=== PATIENT | male | born 1990 | race Caucasian/White ===

== ENCOUNTER 2017-12-14 15:55 | Outpatient (RCR) | payer OTHER, SELFPAY | END 2017-12-29 23:59 | LOC: NS 15:55 | PROVIDERS: Family Provider Nurse Practitioner Adult Health; PCP Nurse Practitioner Adult Health; Visit Provider Physician Assistant Medical | DX: E66.9 Obesity, unspecified (principal); Z68.41 Body mass index [BMI] 40.0-44.9, adult; E78.5 Hyperlipidemia, unspecified; Z71.3 Dietary counseling and surveillance | CPT/HCPCS: 97803 ==

== ENCOUNTER 2018-01-25 08:30 | Outpatient (RCR) | payer OTHER, SELFPAY | END 2018-01-26 23:59 | LOC: NS 08:30 | PROVIDERS: Family Provider Nurse Practitioner Adult Health; PCP Nurse Practitioner Adult Health; Visit Provider Physician Assistant Medical | DX: E78.5 Hyperlipidemia, unspecified (principal); E66.9 Obesity, unspecified; Z68.41 Body mass index [BMI] 40.0-44.9, adult; Z71.3 Dietary counseling and surveillance | CPT/HCPCS: 97803 ==

== ENCOUNTER 2018-03-08 12:42 | Outpatient (RCR) | payer OTHER, SELFPAY | END 2018-03-08 12:43 | disposition home or self-care (01) | LOC: NS 12:42 | PROVIDERS: Family Provider Nurse Practitioner Adult Health; PCP Nurse Practitioner Adult Health; Visit Provider Physician Assistant Medical | DX: E66.9 Obesity, unspecified (principal); Z68.41 Body mass index [BMI] 40.0-44.9, adult; E78.5 Hyperlipidemia, unspecified; Z71.3 Dietary counseling and surveillance | CPT/HCPCS: 97803 ==

== ENCOUNTER 2019-02-24 07:40 | Emergency (ER) | payer OTHER, SELFPAY ==
[2019-02-24 07:44] VITALS: BP 158/90; PULSE 127; RESP 30; TEMP 37.6; O2SAT 96; BMI 41.3
--- NOTE | 2019-02-24 08:02 | EKG12_ITS ---
Test Reason : SOB Blood Pressure : / mmHG Vent. Rate : 109 BPM Atrial Rate : 109 BPM P-R Int : 176 ms QRS Dur : 104 ms QT Int : 312 ms P-R-T Axes : 044 034 028 degrees QTc Int : 420 ms Sinus tachycardia /Sinus Arrhythmia Confirmed by CASIE BANUELOS, PIPER ([id number]), film editor MOISÉS GARCÍA ([id number]) on 02/27/2019 1:41:54 PM Referred By: REG Confirmed By:PIPER JASON MD
--- NOTE | 2019-02-24 08:03 | RAD_ITS ---
STUDY: X-RAY CHEST REASON FOR EXAM: Male, 29 years old. Chest pain on inspiration. Hypertension. TECHNIQUE: PA and lateral views of the chest. COMPARISON: None. FINDINGS: The lungs are clear and expanded. There is no demonstrated pleural abnormality. Normal size heart. Normal mediastinum and kayleen. Normal visualized pulmonary arteries. Normal visualized aortic arch and descending thoracic aorta. Normal visualized thoracic spine. Normal visualized ribs, clavicles, and shoulders. There is no demonstrated abnormality of the visualized soft tissue structures of the upper abdomen. RAD/Chest PA and Lateral IMPRESSION: Normal x-ray examination of the chest. Electronically Signed: Brock Hutchins, at 8:43 EDT , Service support ,
--- NOTE | 2019-02-24 08:04 | ED.VIS.GEN ---
History of Present Illness Chief Complaint: Shortness of Breath Informant: Patient Onset: Today - around 8 hrs ago Context: Gradual Onset Timing: Continuous Quality: a little SOB when takes deep breaths. no wheezing. Location: chest Current Severity: Mild Maximum Severity: Mild Worsened by: deep breathing Relieved by: shallow breathing Associated Symptoms: fever to 103. a little achy. pleuritic sternal chest pain. Narrative: Currently, a high prevalence of influenza in the local area. 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 Has had influenza vaccine this season. Concerned that he may have a PE which she has never had before. No history of DVT. No recent travel, immobilization, hospitalization, or recent surgery, and no leg pain or swelling. No cough or congestion. No GI symptoms or problems urinating, bowel movements have been normal. No history of asthma. He has a history of paroxysmal atrial fibrillation for which he takes aspirin, he states he usually feels when he goes into A. fib and it has been a long time since he has felt that way, nothing like that in the last 8 hours. - Past Medical History (1) Paroxysmal atrial fibrillation Status: Chronic (2) Essential (primary) hypertension Status: Chronic (3) HLD (hyperlipidemia) Status: Chronic Past Medical History - Allergies and Home Meds Allergies/Adverse Reactions: Allergies No Known Allergies Allergy (Verified 02/24/19 07:42) Primary Care Physician: Lenny Ramos DO [Primary Care Provider] - Doctors: Swapna Surgical History: tonsillectomy Smoking Status: Former smoker Drugs: None Review of Systems General: Reports: Chills, Fever, Malaise Eyes: Denies: Visual changes - bilaterally, Diplopia ENT: Denies: Bilateral ear pain, Rhinorrhea, Sore throat Cardiovascular: Reports: Chest pain. Denies: Palpitations Respiratory: Reports: Dyspnea. Denies: Cough, Sputum Gastrointestinal: Denies: Abdominal pain, Nausea, Vomiting, Diarrhea, Melena, Hematochezia Genitourinary: Denies: Dysuria, Hematuria, Frequency Musculoskeletal: Denies: Back pain, Swelling, Extremity Pain Skin: Denies: Rash, Wounds Neurological: Denies: Headache, Weakness, Numbness Physical Exam Vital Signs/Narrative: Vital Signs Temp Pulse Resp BP Pulse Ox 02/24/19 07:44 99.7 F H 127 H 30 H 158/90 H 96 Inital Vital Signs reviewed: Yes General: Well nourished, Well developed, No Acute Distress Head: Normocephalic, Atraumatic Eyes: Perrl, EOMI ENT: Moist mucous membranes, No rhinorrhea, - - POP w/ mild cobblestoning, no significant erythema, no exudates, no asymmetry. Negative for: Sinus tenderness Neck: Supple, Nontender Cardiovascular: Regular rate, Regular rhythm, No murmurs, Normal S1, Normal S2, Tachycardia Respiratory: No distress, CTA bilaterally, Chest nontender Abdomen: Soft, Nontender, Nondistended, Normal bowel sounds Back: Nontender, Normal Inspection. Negative for: CVA tenderness Extremities: Nontender, No edema. Negative for: Calf Tenderness Skin: Normal color, No rash Neurological: Alert, Oriented x3, Cranial nerves II-XII grossly intact, Normal Strength, Normal Sensation Psychological: Normal affect, Normal Mood Diagnostic/Tx/Re-eval Impressions Chest X-Ray 02/24/19 08:03 IMPRESSION: Normal x-ray examination of the chest. Electronically Signed: Brock Hutchins, at 8:43 EDT , Service support , 02/24/19 08:03 Chest PA and Lateral [RAD] Stat 02/24/19 08:10 Mucosa - Nasopharyngeal Influenza Types A,B Direct FA ([place]) - Final Laboratory Results 02/24/19 02/24/19 02/24/19 08:00 08:00 08:00 WBC 17.3 H RBC 5.01 Hgb 15.3 Hct 44.4 MCV 88.6 MCH 30.5 MCHC 34.5 RDW 12.1 RDW Differential 38.4 Plt Count 239 MPV 9.6 Immature Gran % (Auto) 0.200 Neut % (Auto) 90.3 H Lymph % (Auto) 6.4 L [place] % (Auto) 2.8 Eos % (Auto) 0.1 Baso % (Auto) 0.2 Absolute Neuts (auto) 15.6 H Absolute Lymphs (auto) 1.10 Total Counted Not Reportable D-Dimer Quant (PE/DVT) < 0.27 L Sodium 139 Potassium 3.8 Chloride 108 H Carbon Dioxide 28.0 Anion Gap 3 L BUN 19 H Creatinine 1.19 Estim Creat Clear Calc 107.45 Est GFR (MDRD) Af Amer 94 Est GFR (MDRD) Non-Af 77 BUN/Creatinine Ratio 16.0 Glucose 110 H Calcium 9.2 - Rhythm Strip Rhythm Strip: Sinus Tach Rate: 110 Ectopy: None - EKG Initial EKG Interpretation: No Acute Injury Pattern, Sinus Tachycardia, - - nonconducted P wave x 1. no AVB. - Medical Decision Making Aside from a leukocytosis with a left shift with no bandemia, total white blood count 17, workup is negative. Chest x-ray shows no pneumonia or other acute abnormality, influenza negative, EKG is normal and d-dimer is negative. He is reassured. Nurses tosha blood cultures because of having to sirs criteria, however clinically he is not septic. We will send the cultures to rule out occult bacterial infection, I do not think he requires any antibiotics at this time. With temperature 103 and appearing very well with basically completely normal exam including no signs of clinical pneumonia, he very likely has a viral etiology of his symptoms. He is breathing well. His temperature is down, he declined all of the medicines we offered him he took Tylenol prior to arrival, now his temperature is 98. Close outpatient follow-up advised, returning if he develops new symptoms that may suggest bacterial etiology of his symptoms, otherwise treating the symptoms is recommended and he is comfortable with that plan. Will prescribe an albuterol inhaler in case his dyspnea develops into wheezing. ED Disposition - Plan for ED Patient: Disposition: Home or Assisted Living Diagnosis: Viral syndrome, Chest pain, unspecified Instructions: ED Viral Syndrome Prescriptions: Albuterol Inhaler [Ventolin Hfa] 1 - 2 puff INHALATION Q4H PRN PRN #1 inhaler PRN Reason: Wheezing Referrals: Lenny Ramos, DO [Primary Care Provider] - 3-5 Days if not improving
[2019-02-24 08:05] VITALS: BP 158/82; PULSE 104; RESP 18; TEMP 37.2; O2SAT 96
[2019-02-24 08:16] LABS: Absolute Neutrophil Count 15.6 X10^3/uL (2.0-7.7); Basophil# 0.03 X10^3/uL; Basophil% 0.2 % (0-1); Eosinophil# 0.02 X10^3/uL; Eosinophils% 0.1 % (0-5); Hematocrit 44.4 % (40-54); Hemoglobin 15.3 g/dl (13.0-16.5); Lymphocyte % 6.4 % (19-41); Mean Corp Hgb Conc 34.5 g/gl (32-36); Mean Corpuscular Hgb 30.5 pg (27.0-32.0); Mean Corpuscular Volume 88.6 fL (80-94); Mean Platelet Vol. 9.6 fl (6.2-12.0); Monocyte# 0.48 X10^3/uL; Monocyte% 2.8 % (0-10); Neutrophil # 15.62 X10^3/uL (2.7-7.7); Neutrophil % 90.3 % (47-70); Platelet Count 239 K/mm3 (150-450); RBC Distribution Width CV 12.1 % (11.6-14.6); RBC Distribution Width SD 38.4 fl (35.1-43.9); Red Blood Count 5.01 M/mm3 (4.6-6.2); White Blood Count 17.3 K/mm3 (4.4-11.0)
[2019-02-24 08:20] LABS: POSITIVE COUNT NO; POSITIVE DIFFERENTIAL NO; POSITIVE MORPHOLOGY NO
[2019-02-24 08:25] LABS: BUN 19 mg/dL (7-18); Creatinine, Serum 1.19 mg/dL (0.70-1.30); Estimated Creatinine Clearance 107.45 ml/min; Glucose 110 mg/dL (74-106)
[2019-02-24 08:26] LABS: Anion Gap 3 (5-15); Calcium,Total 9.2 mg/dL (8.5-10.1); Chloride 108 mmol/L (98-107); EST Glomerular Filtration Rate 77 mL/min (>60); Est Glom Filt Rate - Afr Amer 94 mL/min (>60); Potassium 3.8 mmol/L (3.5-5.1); Sodium Level 139 mmol/L (136-145)
[2019-02-24 08:28] LABS: D-Dimer Quantitative (DVT/PE) < 0.27 FEU/ug/m (0.27-0.49)
[2019-02-24 08:45] VITALS: BP 164/81; PULSE 100; RESP 19; TEMP 37; O2SAT 95
[2019-02-24 09:18] VITALS: BP 143/67; PULSE 86; RESP 18; O2SAT 94
== END 2019-02-24 09:21 | disposition home or self-care (01) ==
PROVIDERS: Emergency Provider Emergency Medicine; Family Provider Family Medicine; PCP Family Medicine
DX: R07.9 Chest pain, unspecified (principal); B34.9 Viral infection, unspecified; Z87.891 Personal history of nicotine dependence; E78.5 Hyperlipidemia, unspecified; I10 Essential (primary) hypertension; I48.0 Paroxysmal atrial fibrillation
CPT/HCPCS: 71046; 80048; 85025; 85379; 87040; 87804; 93005; 96374; 99283; A4216

== ENCOUNTER → 2019-03-30 | Outpatient (CLI) | payer OTHER, SELFPAY ==
[2019-03-30 11:22] VITALS: BMI 41.3
[2019-03-30 13:19] LABS: Absolute Lymphocyte Count 1.87 X10^3/ul (0.83-4.51); Absolute Neutrophil Count 3.9 X10^3/uL (2.0-7.7); Basophil# 0.03 X10^3/uL; Basophil% 0.5 % (0-1); Eosinophil# 0.13 X10^3/uL; Eosinophils% 2.1 % (0-5); Hematocrit 41.8 % (40-54); Hemoglobin 14.2 g/dl (13.0-16.5); Lymphocyte # 1.87 X10^3/ul (4.0); Lymphocyte % 29.6 % (19-41); Mean Corpuscular Hgb 30.1 pg (27.0-32.0); Mean Corpuscular Volume 88.6 fL (80-94); Mean Platelet Vol. 9.3 fl (6.2-12.0); Monocyte# 0.41 X10^3/uL; Monocyte% 6.5 % (0-10); Neutrophil # 3.86 X10^3/uL (2.7-7.7); POSITIVE COUNT NO; POSITIVE DIFFERENTIAL NO; POSITIVE MORPHOLOGY NO; Platelet Count 245 K/mm3 (150-450); RBC Distribution Width CV 12.2 % (11.6-14.6); RBC Distribution Width SD 39.4 fl (35.1-43.9); Red Blood Count 4.72 M/mm3 (4.6-6.2); White Blood Count 6.3 K/mm3 (4.4-11.0)
[2019-03-30 13:27] LABS: ALB/GLOB Ratio 1.1 RATIO (0.9-2.4); AST(SGOT) 15 U/L (15-37); Alanine Aminotransfer ALT/SGPT 31 U/L (16-61); Alkaline Phosphatase 64 U/L (45-117); Anion Gap 7 (5-15); BUN 17 mg/dL (7-18); BUN/Creat Ratio 15.5 RATIO (10-20); Calcium,Total 9.4 mg/dL (8.5-10.1); Chloride 105 mmol/L (98-107); Cholesterol 155 mg/dL (200); EST Glomerular Filtration Rate 85 mL/min (>60); Est Glom Filt Rate - Afr Amer 102 mL/min (>60); Globulin 3.6 g/dL (2.2-4.2); Glucose 92 mg/dL (74-106); High Density Lipoprotein 35 mg/dL; Potassium 4.3 mmol/L (3.5-5.1); Protein, Total 7.6 g/dL (6.4-8.2); Sodium Level 139 mmol/L (136-145); T4 Free Direct 1.11 ng/dL (0.76-1.46); Thyroid Stim Hormone (TSH) 0.91 uIU/mL (0.358-3.74); Triglycerides 111 mg/dL; Very Low Density Lipoprotein 22 mg/dL (5-40)
== END | disposition home or self-care (01) ==
LOC: BIMLAB 11:42
PROVIDERS: Family Provider Family Medicine; PCP Family Medicine; Visit Provider Family Medicine
DX: I10 Essential (primary) hypertension (principal)
CPT/HCPCS: 36415; 80053; 80061; 84439; 84443; 85025

== ENCOUNTER → 2020-04-26 | Outpatient (CLI) | payer OTHER, SELFPAY ==
[2020-04-26 16:35] VITALS: BMI 41.3
[2020-04-26 18:26] LABS: Probe Check PASS; Specimen Processing Control PASS
[2020-04-26 18:37] LABS: SARS-COV-2 DNA by PCR Negative (Negative)
== END | disposition home or self-care (01) ==
PROVIDERS: PCP Internal Medicine; Referring Provider Internal Medicine; Visit Provider Internal Medicine
DX: Z20.828 Contact with and (suspected) exposure to other viral communicable diseases (principal)
CPT/HCPCS: 87635; G2023; U0004

== ENCOUNTER → 2020-05-14 12:18 | Outpatient (CLI) | payer OTHER, SELFPAY ==
[2020-04-26 16:35] VITALS: BMI 41.3
[2020-05-14 14:06] LABS: HIV - WCH Non-Reactive (Nonreactive); Hepatitis B Surface Antigen Non-Reactive (Nonreactive); Hepatitis C Antibody Non-Reactive (Nonreactive)
[2020-05-15 21:57] LABS: Rapid Plasmin Reagin (RPR) NONREACTIVE (NONREACTIVE)
== END ==
PROVIDERS: PCP Family Medicine; Visit Provider Obstetrics & Gynecology Reproductive Endocrinology
DX: Z31.41 Encounter for fertility testing (principal); Z11.9 Encounter for screening for infectious and parasitic diseases, unspecified; Z11.4 Encounter for screening for human immunodeficiency virus [HIV]
CPT/HCPCS: 36415; 86592; 86703; 86803; 87340

== ENCOUNTER → 2021-07-25 | Outpatient (CLI) | payer OTHER, SELFPAY | END | disposition home or self-care (01) | LOC: EMPH 09:08 → LABSPEC 09:20 | PROVIDERS: PCP Family Medicine; Referring Provider Internal Medicine; Visit Provider Internal Medicine | DX: J02.9 Acute pharyngitis, unspecified (principal) | CPT/HCPCS: 87633; 87635; U0005; U0003 ==

== ENCOUNTER → 2022-07-24 | Outpatient (CLI) | payer OTHER, SELFPAY ==
[2022-07-24 12:18] LABS: Absolute Lymphocyte Count 2.16 X10^3/uL (0.83-4.51); Absolute Neutrophil Count 4.2 X10^3/uL (2.0-7.7); Basophil# 0.05 X10^3/uL; Basophil% 0.7 % (0-1); Eosinophil# 0.07 X10^3/uL; Hematocrit 43.6 % (40-54); Hemoglobin 14.5 g/dL (13.0-16.5); Lymphocyte # 2.16 X10^3/ul (0.83-4.51); Lymphocyte % 31.4 % (19-41); Mean Corp Hgb Conc 33.3 g/dL (32-36); Mean Corpuscular Volume 90.1 fL (80-94); Monocyte# 0.37 X10^3/uL; Monocyte% 5.4 % (0-10); NRBC Flagged by Analyzer 0 % (0-5); Neutrophil % 61.1 % (47-70); Platelet Count 273 K/mm3 (150-450); RBC Distribution Width CV 12.2 % (11.6-14.6); RBC Distribution Width SD 39.6 fl (35.1-43.9); Red Blood Count 4.84 M/mm3 (4.6-6.2); White Blood Count 6.9 K/mm3 (4.4-11.0)
[2022-07-24 12:21] LABS: Vitamin D,25 Hydroxy 33.6 ng/mL
[2022-07-24 12:43] LABS: ALB/GLOB Ratio 1.1 RATIO (0.9-2.4); AST(SGOT) 11 U/L (15-37); Alanine Aminotransfer ALT/SGPT 35 U/L (16-61); Albumin, Serum 3.9 g/dL (3.2-5.0); Alkaline Phosphatase 62 U/L (45-117); Anion Gap 7 (5-15); BUN 15 mg/dL (7-18); BUN/Creat Ratio 14.9 RATIO (10-20); Calcium,Total 9.3 mg/dL (8.5-10.1); Chloride 105 mmol/L (98-107); Cholesterol 148 mg/dL (200); Creatinine, Serum 1.01 mg/dL (0.70-1.30); EST Glomerular Filtration Rate 91 mL/min (>60); Est Glom Filt Rate - Afr Amer 111 mL/min (>60); Globulin 3.6 g/dL (2.2-4.2); Glucose 91 mg/dL (74-106); High Density Lipoprotein 28 mg/dL; Potassium 3.8 mmol/L (3.5-5.1); Protein, Total 7.5 g/dL (6.4-8.2); Sodium Level 139 mmol/L (136-145); Thyroid Stim Hormone (TSH) 1.05 uIU/mL (0.358-3.74); Triglycerides 161 mg/dL; Very Low Density Lipoprotein 32 mg/dL (5-40)
== END | disposition home or self-care (01) ==
LOC: BIMLAB 07:55
PROVIDERS: PCP Family Medicine; Referring Provider Physician Assistant; Visit Provider Physician Assistant
DX: Z00.00 Encounter for general adult medical examination without abnormal findings (principal); E78.5 Hyperlipidemia, unspecified; I10 Essential (primary) hypertension; E55.9 Vitamin D deficiency, unspecified; E88.81 Metabolic syndrome and other insulin resistance; Z13.29 Encounter for screening for other suspected endocrine disorder
CPT/HCPCS: 36415; 80053; 80061; 82306; 84403; 84443; 85025

== ENCOUNTER → 2022-12-28 | Outpatient (CLI) | payer OTHER, SELFPAY ==
[2022-12-28 13:11] LABS: HIV - WCH Non-Reactive (Nonreactive); Hepatitis B Surface Antigen Non-Reactive (Nonreactive); Hepatitis C Antibody Non-Reactive (Nonreactive); Syphilis Antibodies Non-reactive
== END | disposition home or self-care (01) ==
LOC: BIMLAB 09:40
PROVIDERS: PCP Family Medicine; Visit Provider Obstetrics & Gynecology Reproductive Endocrinology
DX: Z11.3 Encounter for screening for infections with a predominantly sexual mode of transmission (principal)
CPT/HCPCS: 36415; 86703; 86780; 86803; 87340

== ENCOUNTER → 2024-01-12 | Outpatient (CLI) | payer BC, SELFPAY ==
--- OUTSIDE RECORDS SUMMARY | 2024-01-12 14:03 | XMS RPT_ITS | CCD ---
Author Name Unknown Address [address] [place] [address] Organization [facility] Care Team Providers Care Associate Drafter Name Role Phone Khadijah Estrella Unavailable Unavailable Khadijah Estrella Unavailable Unavailable Mariza CLARK, Alona James Unavailable Unavailable SEJAL Fields, Carrie Dlearosa Unavailable Mariza CLARK, Alona James Unavailable Unavailable MD Swapna, Hao Andrade Unavailable Allergies Allergy Classification Reported Allergen(s) Allergy Type Date of Onset Reaction(s) Facility (6 sources) aliskiren Drug Allergy 2 Orthostatic hypotension [facility] Work Phone: [phone] (6 sources) lisinopril Drug Allergy 2 orthostatic hypotension [facility] Work Phone: [phone] (6 sources) nebivolol Drug Allergy 2 Palpitations and orthostatic hypotension [facility] Work Phone: [phone] (6 sources) PINE TREES; Translations: [PINE TREES] allergy to substance 2 [facility] Work Phone: Medications Completed/Discontinued Medications Medication Drug Class(es) Dates Sig (Normalized) Sig (Original) Acetaminophen / HYDROcodone (12 sources) Opioid Agonist Start: 07-11-2010 VICODIN 5-500 MG TABS 1 tab twice daily HYDROCODONE-ACETAMI NOPHEN [id number] Chandler Mejia MD Problems Active Problems Problem Classification Problem Date Documented Da te Episodic/Chronic Cardiac dysrhythmias (18 sources) Ventricular premature beats; Translations: [Atrial fibrillation] Onset: 06-02-2016 01-15-2017 Chronic Disorders of lipid metabolism (12 sources) Familial combined hyperlipidemia; Translations: [Hyperlipidemia] Onset: 08-07-2013 08-07-2013 Chronic Essential hypertension (6 sources) Hypertensive disorder; Translations: [Essential (primary) hypertension] Onset: 11-24-2012 11-24-2012 Chronic Other nutritional; endocrine; and metabolic disorders (9 sources) Obesity; Translations: [Morbid obesity] Onset: 08-07-2013 Resolved: 10-19-2016 06-16-2017 Chronic Other nutritional; endocrine; and metabolic disorders (3 sources) Finding of body mass index; Translations: [Body mass index (BMI) 40.0-44.9, adult] Onset: 06-16-2017 06-16-2017 Chronic Other nutritional; endocrine; and metabolic disorders (8 sources) Morbid obesity; Translations: [Morbid (severe) obesity due to excess calories] Onset: 08-07-2013 Resolved: 10-19-2016 10-19-2016 Chronic Residual codes; unclassified (8 sources) Obstructive sleep apnea syndrome; Translations: [Body mass index (BMI) 40.0-44.9, adult] Onset: 10-19-2016 10-19-2016 Chronic Past or Other Problems Problem Classification Problem Date Documented Da te Episodic/Chronic Cardiac dysrhythmias (6 sources) Palpitations; Translations: [Palpitations] Onset: 11-24-2012 11-24-2012 Episodic Neoplasms of unspecified nature or uncertain behavior (6 sources) Neoplasm of uncertain behavior of skin; Translations: [Neoplasm of uncertain behavior of skin] Onset: 06-24-2010 08-06-2010 Episodic Other bone disease and musculoskeletal deformities (3 sources) Segmental and somatic dysfunction; Translations: [Pelvic somatic dysfunction] Onset: 09-27-2017 09-27-2017 Episodic Other bone disease and musculoskeletal deformities (1 source) Pelvic somatic dysfunction; Translations: [Segmental and somatic dysfunction of pelvic region] Onset: 09-27-2017 09-27-2017 Episodic Results Test Name Value Interpretation Reference Range Facil ity Vital Signs Date Time Vital Sign Value Performing Clinician Facility 09-27-2017 14:13-0400 BMI (Body Mass Index) 41.53 kg/m2 Khadijah Estrella [email or web address] Work Phone: 09-27-2017 14:13-0400 Body weight 145.15 kg Hao Barcenas MD [facility] Work Phone: 09-27-2017 14:13-0400 Pulse (Heart Rate) 82 /min [facility]hadijah [facility] Work Phone: 09-27-2017 14:13-0400 Respiratory Rate 19 /min [facility] Work Phone: 09-27-2017 14:13-0400 Weight 145.15 kg [facility] Work Phone: 01-19-2017 15:43-0500 Body mass index (BMI) [Ratio] 40.62 kg/m2 Carrie Fields PA-C Work Phone: [facility] Work Phone: 01-19-2017 15:43-0500 Body surface area Derived from formula 2.62 m2 Carrie Fields PA-C Work Phone: [facility] Work Phone: 01-19-2017 15:43-0500 Body weight 141.98 kg Carrie Fields PA-C Work Phone: [facility] Work Phone: 01-19-2017 15:43-0500 Diastolic blood pressure 70 mm[Hg] Carrie Fields PA-C Work Phone: [facility] Work Phone: 01-19-2017 15:43-0500 Heart rate 72 /min Carrie Fields PA-C Work Phone: [facility] Work Phone: 01-19-2017 15:43-0500 Respiratory rate 20 /min Carrie Fields PA-C Work Phone: [facility] Work Phone: 01-19-2017 15:43-0500 Systolic blood pressure 110 mm[Hg] Carrie Fields PA-C Work Phone: [facility] Work Phone: 01-19-2017 15:43-0500 Weight 141.98 kg Khadijah Estrella [facility] Work Phone: 06-02-2016 11:50-0400 Body height 186.94 cm Carrie Fields PA-C Work Phone: [facility] Work Phone: 07-17-2010 08:00-0400 Body temperature 97.9 [degF] Carrie Fields PA-C Work Phone: [facility] Work Phone: Procedures Date Procedure Procedure Detail Performing Clinician Start: 09-27-2017 End: 09-27-2017 Dietary management education, guidance, and counseling Hao Barcenas MD Start: 09-27-2017 End: 09-27-2017 Documentation of current medications Hao Barcenas MD Start: 09-27-2017 End: 09-27-2017 Chiropractic manipulative tx spinal 1-2 regions Roxanna Swanson DC Work Phone: Start: 09-27-2017 End: 09-27-2017 Chiropractic manipulative tx spinal 1-2 regions Roxanna Swanson DC Work Phone: Start: 01-19-2017 End: 01-19-2017 Documentation of current medications Carrie Fields PA-C Work Phone: Start: 01-19-2017 End: 01-19-2017 INSIDE SALES ASSOCIATE Hao Barcenas MD Start: 01-19-2017 End: 01-19-2017 Ecg routine ecg w/least 12 lds w/i&r Hao Barcenas MD Start: 01-19-2017 End: 01-19-2017 Follow Up Appt 1 year Hao Barcenas MD Start: 01-19-2017 End: 01-19-2017 CARLOS Barcenas MD Start: 01-19-2017 End: 01-19-2017 Ecg routine ecg w/least 12 lds w/i&r Hao Barcenas MD Start: 01-19-2017 End: 01-19-2017 Follow Up Appt 1 year Hao Barcenas MD Start: 10-20-2016 End: 10-20-2016 CARLOS Barcenas MD Start: 10-20-2016 End: 10-20-2016 Follow Up Appt 3 months [facility] Start: 10-20-2016 End: 10-20-2016 CARLOS Barcenas MD Start: 10-20-2016 End: 10-20-2016 Follow Up Appt 3 months [place] [facility] Start: 06-02-2016 End: 01-19-2017 CARLOS Barcenas MD Start: 06-02-2016 End: 01-19-2017 Follow Up Appt 6 months [place] [facility] Start: 06-02-2016 End: 01-19-2017 CARLOS Barcenas MD Start: 06-02-2016 End: 01-19-2017 Follow Up Appt 6 months [facility] Start: 07-30-2014 End: 01-19-2017 *Hepatic Function Panel [facility] Start: 07-30-2014 End: 01-19-2017 Lipid 1996 panel - Serum or Plasma Hao Barcenas MD Start: 07-30-2014 End: 01-19-2017 Hepatic function 2000 panel - Serum or Plasma Hao Barcenas MD Start: 07-30-2014 End: 01-19-2017 Lipid 1996 panel - Serum or Plasma Hao Barcenas MD Start: 02-22-2014 End: 02-22-2014 Follow Up Appt 6 months [place] [facility] Start: 02-22-2014 End: 02-22-2014 OMID Barcenas MD Start: 02-22-2014 End: 02-22-2014 Follow Up Appt 6 months [place] [facility] Start: 02-22-2014 End: 02-22-2014 OMID Barcenas MD Start: 08-07-2013 End: 08-14-2013 *BMP Carrie Fields PA-C Work Phone: Start: 08-07-2013 End: 08-09-2013 *CBC with Differential Carrie chambers PA-C Work Phone: Start: 08-07-2013 End: 08-09-2013 *Hepatic Function Panel Carrie katz PA-C Work Phone: Start: 08-07-2013 End: 08-07-2013 INSIDE SALES ASSOCIATE Carrie Fields PA-C Work Phone: Start: 08-07-2013 End: 08-07-2013 Follow Up Appt 6 months Carrie katz PA-C Work Phone: Start: 08-07-2013 End: 08-14-2013 Lipid 1996 panel - Serum or Plasma Carrie Fields PA-C Work Phone: Start: 08-07-2013 End: 08-14-2013 Thyrotropin [Units/volume] in Serum or Plasma Carrie Fields PA-C Work Phone: Start: 08-07-2013 End: 08-14-2013 Basic metabolic 2000 panel - Serum or Plasma Carrie Fields PA-C Work Phone: Start: 08-07-2013 End: 08-09-2013 CBC W Auto Differential panel - Blood Carrie Fields PA-C Work Phone: Start: 08-07-2013 End: 08-07-2013 INSIDE SALES ASSOCIATE Carrie Fields PA-C Work Phone: Start: 08-07-2013 End: 08-07-2013 Follow Up Appt 6 months Carrie katz PA-C Work Phone: Start: 08-07-2013 End: 08-09-2013 Hepatic function 2000 panel - Serum or Plasma Carrie Fields PA-C Work Phone: Start: 08-07-2013 End: 08-14-2013 Lipid 1996 panel - Serum or Plasma Carrie Fields PA-C Work Phone: Start: 08-07-2013 End: 08-14-2013 Thyrotropin [Units/volume] in Serum or Plasma Carrie Fields PA-C Work Phone: Start: 01-31-2013 End: 01-31-2013 Follow Up Appt 6 months [place] [facility] Start: 01-31-2013 End: 01-31-2013 OMID Barcenas MD Start: 01-31-2013 End: 01-31-2013 Follow Up Appt 6 months [place] [facility] Start: 01-31-2013 End: 01-31-2013 OMID Barcenas MD Start: 11-25-2012 End: 11-30-2012 *BMP Hao Barcenas MD Start: 11-25-2012 End: 11-30-2012 Ct abdomen w/contrast material Hao Barcenas MD Start: 11-25-2012 End: 11-30-2012 Ct pelvis w/contrast material Hao Enriquez MD Start: 11-25-2012 End: 07-25-2013 Ecg routine ecg w/least 12 lds w/i&r Hao Barcenas MD Start: 11-25-2012 End: 11-30-2012 Echocardiography Hao Barcenas MD Start: 11-25-2012 End: 07-25-2013 Follow Up Appt 3 months [place] [facility] Start: 11-25-2012 End: 11-30-2012 Basic metabolic 2000 panel - Serum or Plasma Hao Barcenas MD Start: 11-25-2012 End: 11-30-2012 Ct abdomen w/contrast material Hao Barcenas MD Start: 11-25-2012 End: 07-25-2013 Ecg routine ecg w/least 12 lds w/i&r Hao Barcenas MD Start: 11-25-2012 End: 11-30-2012 Echocardiography Hao Barcenas MD Start: 11-25-2012 End: 07-25-2013 Follow Up Appt 3 months [facility] Plan of Treatment Date Care Activity Detail Author Start: 01-18-2018 End: 01-18-2018 Appointment Appointment [facility] Work Phone: Start: 09-27-2017 End: 09-27-2017 Appointment Appointment [facility] Work Phone: Start: 09-27-2017 End: 09-27-2017 Follow up Appt 2x/week Follow up Appt 2x/week [facility] Work Phone: Start: 09-27-2017 End: 09-27-2017 Follow up Appt 2x/week Follow up Appt 2x/week [facility] Work Phone: Start: 06-16-2017 End: 06-16-2017 Customer Accounts Advisor Customer Accounts Advisor [facility], [address] [place], [address] [facility] Work Phone: Start: 06-16-2017 End: 06-16-2017 Nutrition therapy Customer Accounts Advisor [facility], [address] [place], [address] [facility] Work Phone: Start: 01-19-2017 End: 01-19-2017 INSIDE SALES ASSOCIATE INSIDE SALES ASSOCIATE [facility] Work Phone: Start: 01-19-2017 End: 01-19-2017 Ecg routine ecg w/least 12 lds w/i&r EKG (In office) [facility] Work Phone: Start: 01-19-2017 End: 01-19-2017 Follow Up Appt 1 year Follow Up Appt 1 year [facility] Work Phone: Start: 01-19-2017 End: 01-19-2017 INSIDE SALES ASSOCIATE INSIDE SALES ASSOCIATE [facility] Work Phone: Start: 01-19-2017 End: 01-19-2017 Ecg routine ecg w/least 12 lds w/i&r EKG (In office) [facility] Work Phone: Start: 01-19-2017 End: 01-19-2017 Follow Up Appt 1 year Follow Up Appt 1 year [facility] Work Phone: Start: 10-20-2016 End: 10-20-2016 INSIDE SALES ASSOCIATE INSIDE SALES ASSOCIATE [facility] Work Phone: Start: 10-20-2016 End: 10-20-2016 Follow Up Appt 3 months Follow Up Appt 3 months [facility] Work Phone: Start: 10-20-2016 End: 10-20-2016 INSIDE SALES ASSOCIATE INSIDE SALES ASSOCIATE [facility] Work Phone: Start: 10-20-2016 End: 10-20-2016 Follow Up Appt 3 months Follow Up Appt 3 months [facility] Work Phone: Start: 06-02-2016 End: 01-19-2017 INSIDE SALES ASSOCIATE INSIDE SALES ASSOCIATE [facility] Work Phone: Start: 06-02-2016 End: 01-19-2017 Follow Up Appt 6 months Follow Up Appt 6 months [facility] Work Phone: Start: 06-02-2016 End: 01-19-2017 INSIDE SALES ASSOCIATE INSIDE SALES ASSOCIATE [facility] Work Phone: Start: 06-02-2016 End: 01-19-2017 Follow Up Appt 6 months Follow Up Appt 6 months [facility] Work Phone: Start: 07-30-2014 End: 01-19-2017 *Hepatic Function Panel *Hepatic Function Panel [facility] Work Phone: Start: 07-30-2014 End: 01-19-2017 Lipid panel [AGGREGATE] *Lipid Profile CC PCP [facility] Work Phone: Start: 07-30-2014 End: 01-19-2017 Hepatic function 2000 panel - Serum or Plasma *Hepatic Function Panel [facility] Work Phone: Start: 07-30-2014 End: 01-19-2017 Lipid 1996 panel - Serum or Plasma *Lipid Profile CC PCP [facility] Work Phone: Start: 02-22-2014 End: 02-22-2014 Follow Up Appt 6 months Follow Up Appt 6 months [facility] Work Phone: Start: 02-22-2014 End: 02-22-2014 MMM MMM [facility] Work Phone: Start: 02-22-2014 End: 02-22-2014 Follow Up Appt 6 months Follow Up Appt 6 months [facility] Work Phone: Start: 02-22-2014 End: 02-22-2014 MMM MMM [facility] Work Phone: Start: 08-07-2013 End: 08-14-2013 *BMP *BMP [facility] Work Phone: Start: 08-07-2013 End: 08-09-2013 *CBC with Differential *CBC with Differential [facility] Work Phone: Start: 08-07-2013 End: 08-09-2013 *Hepatic Function Panel *Hepatic Function Panel [facility] Work Phone: Start: 08-07-2013 End: 08-07-2013 INSIDE SALES ASSOCIATE INSIDE SALES ASSOCIATE [facility] Work Phone: Start: 08-07-2013 End: 08-07-2013 Follow Up Appt 6 months Follow Up Appt 6 months [facility] Work Phone: Start: 08-07-2013 End: 08-14-2013 Lipid panel [AGGREGATE] *Lipid Profile CC PCP [facility] Work Phone: Start: 08-07-2013 End: 08-14-2013 Thyroid stimulating hormone (TSH) *TSH [facility] Work Phone: Start: 08-07-2013 End: 08-14-2013 Basic metabolic 2000 panel - Serum or Plasma *BMP [facility] Work Phone: Start: 08-07-2013 End: 08-09-2013 CBC W Auto Differential panel - Blood *CBC with Differential [facility] Work Phone: Start: 08-07-2013 End: 08-07-2013 INSIDE SALES ASSOCIATE INSIDE SALES ASSOCIATE [facility] Work Phone: Start: 08-07-2013 End: 08-07-2013 Follow Up Appt 6 months Follow Up Appt 6 months [facility] Work Phone: Start: 08-07-2013 End: 08-09-2013 Hepatic function 2000 panel - Serum or Plasma *Hepatic Function Panel [facility] Work Phone: Start: 08-07-2013 End: 08-14-2013 Lipid 1996 panel - Serum or Plasma *Lipid Profile CC PCP [facility] Work Phone: Start: 08-07-2013 End: 08-14-2013 Thyrotropin [Units/volume] in Serum or Plasma *TSH [facility] Work Phone: Start: 01-31-2013 End: 01-31-2013 Follow Up Appt 6 months Follow Up Appt 6 months [employer] Work Phone: Start: 01-31-2013 End: 01-31-2013 MMM MMM [facility] Work Phone: Start: 01-31-2013 End: 01-31-2013 Follow Up Appt 6 months Follow Up Appt 6 months [facility] Work Phone: Start: 01-31-2013 End: 01-31-2013 MMM MMM [facility] Work Phone: Start: 11-25-2012 End: 11-30-2012 *BMP *BMP [facility] Work Phone: Start: 11-25-2012 End: 11-25-2012 Ct abdomen w/contrast material CT Abdomen with Contrast [employer] [facility] Work Phone: Start: 11-25-2012 End: 11-25-2012 Ct pelvis w/contrast material CT Pelvis with Contrast [employer] [employer] Work Phone: Start: 11-25-2012 End: 07-25-2013 Ecg routine ecg w/least 12 lds w/i&r EKG (In office) [facility] Work Phone: Start: 11-25-2012 End: 11-25-2012 Echocardiography Echocardiogram (complete) [employer] Work Phone: Start: 11-25-2012 End: 07-25-2013 Follow Up Appt 3 months Follow Up Appt 3 months [employer] Work Phone: Start: 11-25-2012 End: 11-30-2012 Basic metabolic 2000 panel - Serum or Plasma *BMP [facility] Work Phone: Start: 11-25-2012 End: 11-25-2012 Ct abdomen w/contrast material CT Abdomen with Contrast [facility] Work Phone: Start: 11-25-2012 End: 11-25-2012 Ct pelvis w/contrast material CT Pelvis with Contrast [facility] Work Phone: Start: 11-25-2012 End: 07-25-2013 Ecg routine ecg w/least 12 lds w/i&r EKG (In office) [facility] Work Phone: Start: 11-25-2012 End: 11-25-2012 Echocardiography Echocardiogram (complete) [employer] [facility] Work Phone: Start: 11-25-2012 End: 07-25-2013 Follow Up Appt 3 months Follow Up Appt 3 months [facility] Work Phone: Summary Purpose Family History No Family History Records Found Advance Directives No Advanced Directives Records Found Additional Source Comments (unrecognized sect ion and content) No Status Records Found INFORMATION SOURCE (unrecogn ized section and content) FOR RECORDS PERTAINING TO PATIENTS WHO ARE OR HAVE BEEN ENROLLED IN A CHEMICAL DEPENDENCY/SUBSTANCEABUSE PROGRAM, SOME INFORMATION MAY BE OMITTED. This clinical summary was aggregated from multiple sources. Caution should be exercised in using it in the provision of clinical care. This summary normalizes information from multiple sources, and as a consequence, information in this document may materially change the coding, format and clinical context of patient data. In addition, data may be omitted in some cases. CLINICAL DECISIONS SHOULD BE BASED ON THE PRIMARY CLINICAL RECORDS. [employer] provides no warranty or guarantee of the accuracy or completeness of information in this document.
[2024-01-12 18:28] LABS: HIV - WCH Non-Reactive (Nonreactive); Hepatitis B Surface Antigen Non-Reactive (Nonreactive); Hepatitis C Antibody Non-Reactive (Nonreactive); Syphilis Antibodies Non-reactive
== END | disposition home or self-care (01) ==
PROVIDERS: Visit Provider Obstetrics & Gynecology Reproductive Endocrinology
DX: Z11.3 Encounter for screening for infections with a predominantly sexual mode of transmission (principal); Z11.4 Encounter for screening for human immunodeficiency virus [HIV]
CPT/HCPCS: 36415; 86703; 86780; 86803; 87340

== ENCOUNTER → 2024-07-26 | Outpatient (CLI) | payer BC, SELFPAY ==
[2024-07-26 12:56] LABS: Absolute Lymphocyte Count 1.61 X10^3/uL (0.83-4.51); Absolute Neutrophil Count 3.8 X10^3/uL (2.0-7.7); Basophil# 0.04 X10^3/uL; Basophil% 0.7 % (0-1); Eosinophil# 0.05 X10^3/uL; Eosinophils% 0.9 % (0-5); Hematocrit 44.9 % (40-54); Hemoglobin 15.5 g/dL (13.0-16.5); Lymphocyte # 1.61 X10^3/ul (0.83-4.51); Lymphocyte % 27.6 % (19-41); Mean Corp Hgb Conc 34.5 g/dL (32-36); Mean Platelet Vol. 10.5 fl (6.2-12.0); Monocyte# 0.35 X10^3/uL; NRBC Flagged by Analyzer 0 % (0-5); Neutrophil # 3.78 X10^3/uL (2.7-7.7); Neutrophil % 64.6 % (47-70); Platelet Count 216 K/mm3 (150-450); RBC Distribution Width CV 12.1 % (11.6-14.6); RBC Distribution Width SD 38.5 fl (35.1-43.9); Red Blood Count 5.16 M/mm3 (4.6-6.2); White Blood Count 5.8 K/mm3 (4.4-11.0)
[2024-07-26 13:14] LABS: Erythrocyte Sedimentation Rate 5 mm/hr (0-20)
[2024-07-26 13:17] LABS: Vitamin B12 > 2000 pg/mL (211-911); Vitamin D,25 Hydroxy 69.5 ng/mL
[2024-07-26 13:34] LABS: ALB/GLOB Ratio 1.1 RATIO (0.9-2.4); AST(SGOT) 11 U/L (15-37); Alanine Aminotransfer ALT/SGPT 16 U/L (16-61); Albumin, Serum 4.2 g/dL (3.2-5.0); Alkaline Phosphatase 55 U/L (45-117); Anion Gap 6 (5-15); BUN 17 mg/dL (7-18); BUN/Creat Ratio 15.3 RATIO (10-20); CRP < 2.90 mg/L (0.0-3.0); Calcium,Total 9.5 mg/dL (8.5-10.1); Chloride 104 mmol/L (98-107); Cholesterol 174 mg/dL (200); Creatinine, Serum 1.11 mg/dL (0.70-1.30); EST Glomerular Filtration Rate 81 mL/min (>60); Est Glom Filt Rate - Afr Amer 98 mL/min (>60); Globulin 3.8 g/dL (2.2-4.2); Glucose 83 mg/dL (74-106); High Density Lipoprotein 37 mg/dL; Magnesium 2.3 mg/dL (1.6-2.6); Potassium 4.2 mmol/L (3.5-5.1); Sodium Level 136 mmol/L (136-145); Triglycerides 116 mg/dL; Very Low Density Lipoprotein 23 mg/dL (5-40)
[2024-07-26 16:05] LABS: Hemoglobin A1c 4.8 % (3.8-5.6)
[2024-07-28 16:10] LABS: ANTINUCLEAR ANTIBODIES DIRECT Positive (Negative)
[2024-08-02 11:09] LABS: Deamidated Gliadin IgA 6 units (0-19); Deamidated Gliadin IgG 2 units (0-19); Endomysial Antibody IgA Negative (Negative); Immunoglobulin A 76 mg/dL (90-386); Testosterone, % Free 4.17 % (1.50-4.20); Testosterone, Free 22.48 ng/dL (5.00-21.00); Testosterone, Total 539 ng/dL (264-916); Thyroid Peroxidase AB < 9 IU/mL (0-34); t-Transglutaminase IgA <2 U/mL (0-3)
== END | disposition home or self-care (01) ==
PROVIDERS: Visit Provider Nurse Practitioner Family
DX: Z00.00 Encounter for general adult medical examination without abnormal findings (principal); E29.1 Testicular hypofunction; E56.9 Vitamin deficiency, unspecified
CPT/HCPCS: 36415; 80053; 80061; 82306; 82533; 82607; 82784; 83036; 83516; 83735; 84402; 84403; 84443; 85025; 85652; 86038; 86140; 86255; 86376

== ENCOUNTER → 2025-04-11 | Outpatient (CLI) | payer BC, SELFPAY ==
[2025-04-11 12:47] LABS: Absolute Lymphocyte Count 0.95 X10^3/uL (0.83-4.51); Basophil# 0.04 X10^3/uL; Basophil% 0.7 % (0-1); Eosinophil# 0.01 X10^3/uL; Eosinophils% 0.2 % (0-5); Hematocrit 40.4 % (40-54); Hemoglobin 14.2 g/dL (13.0-16.5); Lymphocyte # 0.95 X10^3/ul (0.83-4.51); Lymphocyte % 17.6 % (19-41); Mean Corp Hgb Conc 35.1 g/dL (32-36); Mean Corpuscular Hgb 30.7 pg (27.0-32.0); Mean Corpuscular Volume 87.4 fL (80-94); Mean Platelet Vol. 9.1 fl (6.2-12.0); Monocyte# 0.37 X10^3/uL; Monocyte% 6.9 % (0-10); NRBC Flagged by Analyzer 0 % (0-5); Neutrophil # 4.02 X10^3/uL (2.7-7.7); Neutrophil % 74.4 % (47-70); Platelet Count 227 K/mm3 (150-450); RBC Distribution Width CV 11.6 % (11.6-14.6); RBC Distribution Width SD 37.1 fl (35.1-43.9); Red Blood Count 4.62 M/mm3 (4.6-6.2); White Blood Count 5.4 K/mm3 (4.4-11.0)
[2025-04-11 12:55] LABS: Internal QC Validated? YES +Cl - CLEAR BKGD; Monotest Negative (Negative); Record Kit Lot#, Mono 13241430
[2025-04-11 13:39] LABS: ALB/GLOB Ratio 1.4 RATIO (0.9-2.4); AST(SGOT) 28 U/L (<=37); Alanine Aminotransfer ALT/SGPT 30 U/L (<=46); Albumin, Serum 4.3 g/dL (3.5-5.0); Alkaline Phosphatase 74 U/L (40-129); Anion Gap 11 (5-15); BUN 17 mg/dL (4-19); Calcium,Total 9.6 mg/dL (7.6-11.0); Carbon Dioxide 24.8 mmol/L (21.0-32.0); Chloride 100 mmol/L (98-108); Creatinine, Serum 1.12 mg/dL (0.70-1.20); EST Glomerular Filtration Rate 88 (>60); Globulin 3.1 g/dL (2.2-4.2); Glucose 84 mg/dL (70-99); Potassium 4.5 mmol/L (3.3-5.1); Protein, Total 7.3 g/dL (5.9-8.4); Sodium Level 136 mmol/L (133-145); Total Bilirubin 0.75 mg/dL (0.00-1.30)
== END | disposition home or self-care (01) ==
LOC: VSLAB 10:37
PROVIDERS: PCP Nurse Practitioner Family; Visit Provider Nurse Practitioner Family
DX: R50.9 Fever, unspecified (principal)
CPT/HCPCS: 36415; 80053; 85025; 86308; 86617

== ENCOUNTER → 2025-06-12 | Outpatient (CLI) | payer BC, SELFPAY ==
[2025-06-12 14:31] LABS: Hematocrit 39.2 % (40-54); Hemoglobin 13.7 g/dL (13.0-16.5); Immature Granulocytes Count 0.010 X10^3/uL (0.0-0.0); Mean Corp Hgb Conc 34.9 g/dL (32-36); Mean Corpuscular Volume 86.2 fL (80-94); Mean Platelet Vol. 10.5 fl (6.2-12.0); NRBC Flagged by Analyzer 0 % (0-5); Platelet Count 198 K/mm3 (150-450); RBC Distribution Width CV 12.3 % (11.6-14.6); RBC Distribution Width SD 38.7 fl (35.1-43.9); Red Blood Count 4.55 M/mm3 (4.6-6.2); White Blood Count 5.9 K/mm3 (4.4-11.0)
[2025-06-12 15:26] LABS: AST(SGOT) 20 U/L (<=37); Alanine Aminotransfer ALT/SGPT 18 U/L (<=46); Albumin, Serum 4.2 g/dL (3.5-5.0); Alkaline Phosphatase 61 U/L (40-129); Anion Gap 12 (5-15); BUN 15 mg/dL (4-19); BUN/Creat Ratio 13.6 RATIO (10-20); Calcium,Total 9.3 mg/dL (7.6-11.0); Carbon Dioxide 22.0 mmol/L (21.0-32.0); Chloride 104 mmol/L (98-108); Globulin 2.6 g/dL (2.2-4.2); Glucose 91 mg/dL (70-99); Potassium 3.9 mmol/L (3.3-5.1)
[2025-06-12 16:06] LABS: Amylase 40 U/L (28-100); CRP 4.08 mg/L (0.0-3.0); Lipase 44 U/L (13-75)
== END | disposition home or self-care (01) ==
LOC: VSLAB 11:41
PROVIDERS: PCP Nurse Practitioner Family; Visit Provider Nurse Practitioner Family
DX: R10.9 Unspecified abdominal pain (principal)
CPT/HCPCS: 36415; 80053; 82150; 83690; 85025; 85652; 86140

== ENCOUNTER → 2025-08-08 | Outpatient (CLI) | payer BC, SELFPAY ==
[2025-08-08 17:09] LABS: HIV Nonreactive (Nonreactive); Hepatitis B Surface Antigen Nonreactive (Nonreactive); Hepatitis C Antibody Nonreactive (Nonreactive); Syphilis Antibodies Nonreactive (Nonreactive)
== END | disposition home or self-care (01) ==
PROVIDERS: PCP Obstetrics & Gynecology Reproductive Endocrinology; Referring Provider Obstetrics & Gynecology Reproductive Endocrinology; Visit Provider Obstetrics & Gynecology Reproductive Endocrinology
DX: Z00.00 Encounter for general adult medical examination without abnormal findings (principal); Z11.3 Encounter for screening for infections with a predominantly sexual mode of transmission
CPT/HCPCS: 36415; 86703; 86780; 86803; 87340

== ENCOUNTER → 2025-09-11 | Outpatient (CLI) | payer BC, SELFPAY ==
[2025-09-11 16:41] LABS: Hematocrit 40.7 % (40-54); Hemoglobin 14.1 g/dL (13.0-16.5); Immature Granulocytes Count 0.030 X10^3/uL (0.0-0.0); Mean Corp Hgb Conc 34.6 g/dL (32-36); Mean Corpuscular Volume 89.8 fL (80-94); Mean Platelet Vol. 9.5 fl (6.2-12.0); NRBC Flagged by Analyzer 0 % (0-5); Platelet Count 236 K/mm3 (150-450); RBC Distribution Width CV 12.5 % (11.6-14.6); RBC Distribution Width SD 40.8 fl (35.1-43.9); Red Blood Count 4.53 M/mm3 (4.6-6.2); White Blood Count 8.5 K/mm3 (4.4-11.0)
[2025-09-11 17:46] LABS: AST(SGOT) 34 U/L (<=37); Alanine Aminotransfer ALT/SGPT 57 U/L (<=46); Albumin, Serum 4.2 g/dL (3.5-5.0); Alkaline Phosphatase 62 U/L (40-129); Anion Gap 12 (5-15); BUN 18 mg/dL (4-19); BUN/Creat Ratio 19.7 RATIO (10-20); Calcium,Total 9.9 mg/dL (7.6-11.0); Carbon Dioxide 26.5 mmol/L (21.0-32.0); Chloride 99 mmol/L (98-108); Globulin 3.0 g/dL (2.2-4.2); Glucose 87 mg/dL (70-99); Lipase 20 U/L (13-75); Potassium 3.8 mmol/L (3.3-5.1); Troponin T High Sensitivity < 6 ng/L (<=22)
[2025-09-12 12:55] LABS: Amylase 28 U/L (28-100)
[2025-09-13 06:08] LABS: CRP, High Sensitivity 134.20 mg/L (0.00-3.00)
== END | disposition home or self-care (01) ==
LOC: VSLAB 15:36
PROVIDERS: PCP Nurse Practitioner Family; Visit Provider Nurse Practitioner Family
DX: R07.89 Other chest pain (principal); R10.9 Unspecified abdominal pain; R50.9 Fever, unspecified
CPT/HCPCS: 36415; 80053; 82150; 83690; 84484; 85025; 86141; 86617

== ENCOUNTER → 2025-09-13 | Outpatient (CLI) | payer BC, SELFPAY ==
--- NOTE | 2025-09-13 13:48 | ECHOD_ITS ---
Reason For Study Reason For Study: Chest Pain Procedure This was a 2D Doppler, Color Flow transthoracic echocardiogram. Myocardial strain analysis was performed in this exam to aid in the assessment of cardiac function. Exam performed in department. Left Ventricle Normal LV size. The global longitudinal strain = -18.2 % (normal). The left ventricular ejection fraction is 55 %. No regional wall motion abnormalities noted. Right Ventricle Normal RV size. Normal systolic function. Atria Normal left atrium. Normal right atrium. Mitral Valve Normal mitral valve. Tricuspid Valve Normal tricuspid valve. Aortic Valve Normal aortic valve. Trisinus/trileaflet aortic valve. Pulmonic Valve Normal pulmonic valve. Great Vessels Normal aortic root. The pulmonary artery is normal size. Inferior vena cava collapse with respiration. Pericardium/Pleural No pericardial effusion. MMode/2D Measurements & Calculations LVIDd: 5.5 cm IVSd: 1.1 cm Ao root diam: 3.3 cm LVIDs: 3.9 cm LVPWd: 0.93 cm RVDd: 4.2 cm FS: 29.2 % LAV(MOD-bp): 74.7 ml LVAd ap4: 41.9 cm2 SV(MOD-sp4): 88.2 ml LAV(MOD-bp) Indexed: 30.5 ml/m2 LVLd ap4: 9.6 cm SI(MOD-sp4): 36.1 ml/m2 LAV(MOD-sp2): 71.7 ml EDV(MOD-sp4): 155.1 ml LAV(MOD-sp4): 60.6 ml EDV(sp4-el): 154.7 ml LVAs ap4: 25.2 cm2 LVLs ap4: 8.0 cm ESV(MOD-sp4): 67.0 ml ESV(sp4-el): 67.1 ml EF(MOD-sp4): 56.8 % EF(sp4-el): 56.6 % SV(sp4-el): 87.5 ml LA A4 area: 22.3 cm2 LA dimension(2D): 3.8 cm RA A4 area: 21.2 cm2 TAPSE: 2.7 cm Time Measurements MV dec time: 0.20 sec Doppler Measurements & Calculations MV E max ariel: 83.0 cm/sec Lat Peak E' Ariel: 22.7 cm/sec Med Peak E' Ariel: 15.0 cm/sec MV A max ariel: 57.7 cm/sec E/E' lat: 3.7 E/E' med: 5.5 MV E/A: 1.4 MV V2 max: 94.0 cm/sec MV P1/2t max ariel: 94.0 cm/sec Ao V2 max: 142.2 cm/sec MV max P.5 mmHg MV P1/2t: 66.1 msec Ao max P.1 mmHg MV V2 mean: 55.9 cm/sec Ao V2 mean: 99.9 cm/sec MV mean P.4 mmHg MV dec slope: 417.0 cm/sec2 Ao mean P.5 mmHg MV V2 VTI: 20.3 cm MVA(P1/2t): 3.3 cm2 Ao V2 VTI: 27.9 cm AV (velocity ratio): 0.87 LV V1 max: 130.3 cm/sec PA V2 max: 98.3 cm/sec LV V1 max P.8 mmHg PA V2 mean: 65.5 cm/sec LV V1 mean P.4 mmHg LV V1 mean: 84.0 cm/sec LV V1 VTI: 24.2 cm ECHO/Echo Complete Interpretation Summary Normal LV size. The global longitudinal strain = -18.2 % (normal). The left ventricular ejection fraction is 55 %. Structurally normal valves. Ordering Physician: Sarita Abreu Referring Physician: Sarita Abreu Performed By: Ken Gibbons RCS
--- OUTSIDE RECORDS SUMMARY | 2025-09-13 14:09 | XMS RPT_ITS | CCD ---
Author Organization [facility] Care Team Providers Care Lithographic Plate Maker Name Role Phone Khadijah Estrella Unavailable Unavailable Khadijah Estrella Unavailable Unavailable Mariza CLARK, Alona James Unavailable Unavailable SEJAL Fields, Carrie Delarosa Unavailable Mariza CLARK, Alona James Unavailable Unavailable MD Swapna, Hao Andrade Unavailable Dr. Lenny Ramos Primary Care Provider [phone] Dr. Lenny Ramos Referring Provider TED Colon Attending Provider Dr. Lenny Lind Primary Care Provider [phone] Dr. Lenny Ramos Referring Provider TED Colon Attending Provider Dr. Lenny Lind Primary Care Provider Dr. Lenny Ramos Referring Provider TED Colon Attending Provider Gail Landry WELDER APPRENTICE-C, Sarita Primary Care Provider Brady WELDER APPRENTICE-C, Sarita Attending Provider Brady WELDER APPRENTICE-C, Sarita Primary Care Physician Brady WELDER APPRENTICE-C, Sarita Attending Physician Dr. Savita Arthur MD Primary Care Physician Dr. Savita Arthur MD Attending Physician Dr. Savita Arthur MD Referring Provider Savita Arthur Primary Care Unavailable Savita Arthur Attending Unavailable Savita Arthur Referring Unavailable [facility], Sarita Attending Unavailabl e [facility], Sarita [facility], Sarita Primary Care Unavailabl e [facility], Sarita Attending Unavailabl e [facility], Sarita Primary Care Unavailabl e [facility], Sarita Attending Unavailabl e Allergies Allergy Classification Reported Allergen(s) Allergy Type Date of Onset Reaction(s) Facility (6 sources) aliskiren Drug Allergy 2 Orthostatic hypotension [facility] Work Phone: [phone] (6 sources) lisinopril Drug Allergy 2 orthostatic hypotension [facility] Work Phone: [phone] (6 sources) nebivolol Drug Allergy 2 Palpitations and orthostatic hypotension [facility] Work Phone: [phone] (6 sources) PINE TREES; Translations: [PINE TREES] allergy to substance 2 [facility] Work Phone: [phone] Medications Current Medications Medication Drug Class(es) Dates Sig (Normalized) Sig (Original) aspirin 81 mg delayed release oral tablet (13 sources) Platelet Aggregation Inhibitor, Nonsteroidal Anti-inflammatory Drug Start: 02-24-2019 take 1 tablet by mouth at bedtime Start: 10-20-2016 take 1 tablet by katie th once daily ASPIRIN EC 81 MG TBEC One tablet by mouth daily ASPIRIN [id number] Hao Barcenas MD benzonatate 200 mg oral capsule (6 sources) Non-narcotic Antitussive Start: 09-28-2022 take 1 capsule by mouth three times daily as needed for cough cyclobenzaprine hydrochloride 10 mg oral tablet (20 sources) Muscle Relaxant Start: 05-01-2022 End: 01-01-2023 take 1 tablet by mouth at bedtime as needed for muscle spasms Start: 02-22-2014 End: 06-02-2016 FLEXERIL 10 MG TABS as neede d CYCLOBENZAPRINE HCL Hao Barcenas MD Start: 02-22-2014 FLEXERIL 10 MG TABS as needed CYCLOBENZAPRINE HCL Hao Barcenas MD Start: 02-22-2014 FLEXERIL 10 MG TABS as needed CYCLOBENZAPRINE HCL Hao Barcenas MD Start: 02-22-2014 End: 06-02-2016 FLEXERIL 10 MG TABS as neede d CYCLOBENZAPRINE HCL Hao Barcenas MD Start: 11-24-2012 take 1 tablet by katie th once daily as needed FLEXERIL 10 MG TABS One tablet by mouth daily as needed CYCLOBENZAPRINE HCL [id number] Hao Barcenas MD dental device for sleep apne a (5 sources) Start: 01-01-2023 dental device for sleep apnea Active 0 .Route .MEDSUPPLY 1 0 January 01, 2023 1:00am Obstructive sleep apnea syndrome Obstructive sleep apnea (adult) (pediatric) Sleep Apnea G47.33 As directed Start: 01-01-2023 dental device for sleep apnea Active 0 .Route .MEDSUPPLY January 01, 2023 1:00am As directed Start: 01-01-2023 dental device for sleep apnea Active 0 .Route .MEDSUPPLY January 01, 2023 12:00am As directed hydrOXYzine hydrochloride 25 mg oral tablet (12 sources) Antihistamine Start: 05-01-2022 End: 01-01-2023 take 1 tablet by mouth every six hours meloxicam 15 mg oral tablet (12 sources) Nonsteroidal Anti-inflammatory Drug Start: 05-01-2022 End: 01-01-2023 take 1 tablet by mouth once daily ondansetron 4 mg oral tablet (11 sources) Serotonin-3 Receptor Antagonist Start: 09-21-2022 End: 01-01-2023 take 1 tablet by mouth every eight hours as needed for nausea and vomiting sleep apnea supplies (7 sources) Start: 04-13-2019 sleep apnea supplies Active 1 April 13, 2019 12:00am As directed Start: 04-13-2019 sleep apnea benavides pplies Active April 12, 2019 11:00pm As directed Start: 04-13-2019 sleep apnea benavides pplies Active April 13, 2019 12:00am As directed Tirzepatide (2 sources) Start: 12-23-2022 Tirzepatide Ac tive 15 MG SC EVERY WEEK 6.5 90 December 23, 2022 10:43am Tirzepatide (1 source) Start: 12-23-2022 Tirzepatide 15 mg/0.5 mL pen injector (2 sources) Start: 12-23-2022 Tirzepatide 15 mg/0.5 mL pen injector Active 15 mg SC EVERY WEEK 6.5 90 December 23, 2022 11:43am Start: 12-23-2022 Tirzepatide 15 mg/0.5 mL pen injector Active 15 mg SC EVERY WEEK 6.5 December 23, 2022 11:43am Completed/Discontinued Medications Medication Drug Class(es) Dates Sig (Normalized) Sig (Original) Acetaminophen / HYDROcodone (12 sources) Opioid Agonist Start: 07-11-2010 VICODIN 5-500 MG TABS 1 tab twice daily HYDROCODONE-ACETAMI NOPHEN [id number] Chandler Mejia MD Start: 07-11-2010 End: 11-25-2012 VICODIN 5-500 MG TABS 1 tab twice daily HYDROCODONE-ACETAMINOPHEN [id number] Hao Barcenas MD Start: 07-11-2010 VICODIN 5-500 MG TABS 1 tab twice daily HYDROCODONE-ACETAMINOPHEN [id number] Chandler Mejia MD Start: 07-11-2010 End: 11-25-2012 VICODIN 5-500 MG TABS 1 tab twice daily HYDROCODONE-ACETAMINOPHEN [id number] Hao Barcenas MD [id number] actuat albuterol 0.09 mg/actuat metered dose inhaler (7 sources) beta2-Adrenergic Agonist Start: 02-24-2019 End: 07-24-2022 Albuterol Sulfate 1 INHALER inhaler Discontinued 1 - 2 NMA INHALATION EVERY 4 HOURS NEEDED as needed for Wheezing 1 0 February 24, 2019 12:00am July 24, 2022 11:47am Start: 02-24-2019 End: 07-24-2022 take 1 puff(s) by inhalation every four hours as needed Albuterol Sulfate Discontinued 1 - 2 PUFF INHALATION EVERY 4 HOURS NEEDED February 23, 2019 11:00pm July 24, 2022 10:47am aliskiren 150 mg oral tablet (12 sources) Renin Inhibitor Start: 11-24-2012 End: 11-25-2012 take 1 tablet by mouth once daily TEKTURNA 150 MG TABS One tablet by mouth daily ALISKIREN FUMARATE [id number] Alona Dawkins RN amLODIPine 2.5 mg oral tablet (12 sources) Dihydropyridine Calcium Channel Abhi Start: 01-31-2013 End: 08-07-2013 take 1 tablet by mouth once daily NORVASC 2.5 MG TABS One tablet by mouth daily AMLODIPINE BESYLATE [id number] Hao Barcenas MD amoxicillin 875 mg / clavulanate 125 mg oral tablet (6 sources) Penicillin-class Antibacterial Start: 09-21-2022 End: 01-01-2023 Amoxicillin-Pot Clavulanate 875-125 mg tablet Discontinued 1 {tbl} PO TWICE A DAY 14 September 21, 2022 12:00am January 01, 2023 10:17am Start: 09-21-2022 End: 01-01-2023 take 1 tablet by mouth twice daily Amoxicillin-Pot Clavulanate Discontinued 1 TABLET PO TWICE A DAY September 20, 2022 11:00pm January 01, 2023 9:17am atenolol 25 mg oral tablet (12 sources) beta-Adrenergic Abhi Start: 11-24-2012 End: 11-25-2012 take 1 tablet by mouth once daily ATENOLOL 25 MG TABS One tablet by mouth daily ATENOLOL [id number] Alona Dawkins RN Carboxymethylce llulose-Citric (Plenity) 0.75 gram capsule (7 sources) Start: 03-11-2022 End: 07-24-2022 take 1 capsule by mouth twice daily before lunch Carboxymethylcellu lose-Citric (Plenity) 0.75 gram capsule Discontinued 3 NMA PO TWICE A DAY 540 March 11, 2022 12:00am July 24, 2022 11:47am administer before lunch and evening meal/dinner Start: 03-11-2022 End: 07-24-2022 take 1 capsule by mouth twice daily before lunch Carboxymethylcellulose-Citric (Plenity) 0.75 gram capsule Discontinued 3 NMA PO TWICE A DAY 540 March 11, 2022 12:00am July 24, 2022 11:47am administer before lunch and evening meal/dinner Start: 03-11-2022 End: 07-24-2022 Carboxymethylcellulose-Citri c (Plenity) 0.75 gram capsule Discontinued 3 CAP PO TWICE A DAY 540 March 10, 2022 11:00pm July 24, 2022 10:47am administer before lunch and evening meal/dinner Start: 03-11-2022 End: 07-24-2022 Carboxymethylcellulose-Citri c (Plenity) 0.75 gram capsule Discontinued 3 CAP PO TWICE A DAY 540 March 11, 2022 12:00am July 24, 2022 11:47am administer before lunch and evening meal/dinner clindamycin 300 mg oral capsule (7 sources) Lincosamide Antibacterial Start: 02-17-2021 End: 03-03-2021 take 1 capsule by mouth twice daily Clindamycin Hcl 300 mg capsule Discontinued 300 mg PO TWICE A DAY 28 14 0 February 17, 2021 12:00am March 02, 2021 12:00am March 03, 2021 12:02am Fish Oils (6 sources) Start: 06-02-2016 take 2 tablets by mouth once daily FISH OIL CAPS Two tablets by mouth daily OMEGA-3 FATTY ACIDS CAPS [id number] Hao Barcenas MD Start: 06-02-2016 take 2 tablets by mo [facility] once daily FISH OIL CAPS Two tablets by mouth daily OMEGA-3 FATTY ACIDS CAPS [id number] Hao Barcenas MD hydroCHLOROthiazide 12.5 mg oral tablet (18 sources) Thiazide Diuretic Start: 08-07-2013 End: 01-19-2017 take 1 tablet by mouth once HYDROCHLOROTHIAZIDE 25 MG TABS One tablet by mouth daily per pcp HYDROCHLOROTHIAZIDE [id number] Hao Barcenas MD Start: 08-07-2013 take 1 tablet [facility] once daily HYDROCHLOROTHIAZIDE 12.5 MG TABS One tablet by mouth daily HYDROCHLOROTHIAZIDE [id number] Carrie Fields PA-C hydroCHLOROthiazide 12.5 mg / lisinopril 10 mg oral tablet (20 sources) Thiazide Diuretic, Angiotensin Converting Enzyme Inhibitor Start: 01-06-2018 End: 06-18-2022 take 10-12.5 mg by mouth once daily Lisinopril-Hydrochlorothiazide (Zestoretic) 10-12.5 mg tablet Discontinued 1 {tbl} PO .QD 90 3 June 19, 2021 9:42am June 18, 2022 10:47am Start: 01-19-2017 ZESTORETIC 10- 12.5 MG TABS daily LISINOPRIL-HYDROCHLOROTHIAZIDE [id number] Roxanna Swanson DC icosapent ethyl 1000 mg oral capsule (14 sources) Start: 04-01-2020 End: 07-24-2022 Icosapent Ethyl (Vascepa) 1 gram capsule Discontinued 2 g PO TWICE A DAY 360 April 01, 2020 10:38am July 24, 2022 11:48am 3 ml liraglutide 6 mg/ml pen injector (7 sources) GLP-1 Receptor Agonist Start: 03-30-2019 End: 07-24-2022 Liraglutide (Weight Loss) 3 mg/0.5 mL (18 mg/3 mL) pen injector Discontinued 0 SC .COMPLEX 15 0 March 30, 2019 12:00am July 24, 2022 11:48am inject subcutaneously once daily: week 1 = 0.6 mg; week 2 = 1.2 mg; week 3 = 1.8 mg; week 4 = 2.4 mg; then 3 mg daily subcut lisinopril 10 mg oral tablet (12 sources) Angiotensin Converting Enzyme Inhibitor Start: 06-02-2016 End: 01-19-2017 take 1 tablet by mouth once daily LISINOPRIL 10 MG TABS One tablet by mouth daily LISINOPRIL [id number] Hao Barcenas MD 24 hr metoprolol succinate 50 mg extended release oral tablet (20 sources) beta-Adrenergic Abhi Start: 02-24-2019 End: 06-18-2022 take 1 tablet by mouth every twenty-four hours at bedtime Metoprolol Succinate 50 mg tablet extended release 24 hr Discontinued 50 mg PO AT BEDTIME 90 3 June 19, 2021 9:42am June 18, 2022 10:47am Start: 06-30-2018 End: 06-18-2022 take 1 tablet by mouth once daily Metoprolol Succinate 50 mg tablet extended release 24 hr Discontinued 50 mg PO daily 90 June 30, 2018 1:15pm February 24, 2019 7:43am Start: 10-20-2016 take 1 tablet by katie th once daily METOPROLOL SUCCINATE ER 25 MG [id number] One tablet by mouth daily METOPROLOL SUCCINATE [id number] Hao Barcenas MD Start: 11-25-2012 End: 06-02-2016 take 1 tablet by mouth once daily TOPROL XL 50 MG [id number] One tablet by mouth daily METOPROLOL SUCCINATE [id number] Hao Barcenas MD MULTIPLE VITAMIN (2 sources) Start: 11-25-2012 take 1 tablet by mouth once daily MULTIVITAMINS TABS One tablet by mouth daily MULTIPLE VITAMIN [id number] Hao Barcenas MD MULTIPLE VITAMIN (4 sources) Start: 11-25-2012 take 1 tablet by mouth once daily MULTIVITAMINS TABS One tablet by mouth daily MULTIPLE VITAMIN [id number] Hao Barcenas MD nebivolol 5 mg oral tablet (12 sources) Start: 11-24-2012 End: 11-25-2012 take 1 tablet by mouth once daily BYSTOLIC 5 MG TABS One tablet by mouth daily NEBIVOLOL HCL [id number] Alona Dawkins RN Tirzepatide (1 source) Start: 07-24-2022 End: 11-17-2022 Tirzepatide (Mounjaro) 5 mg/0.5 mL pen injector Discontinued 5 mg SC EVERY WEEK 6.5 90 July 24, 2022 12:00am November 17, 2022 1:15pm Tirzepatide (1 source) Start: 11-17-2022 End: 12-23-2022 Tirzepatide (Mounjaro) 10 mg/0.5 mL pen injector Discontinued 10 mg SC EVERY WEEK 6.5 90 3 November 17, 2022 1:15pm December 23, 2022 11:44am Tirzepatide (Mounjaro) 10 mg/0.5 mL pen injector (4 sources) Start: 11-17-2022 End: 12-23-2022 Tirzepatide (Mounjaro) 10 mg/0.5 mL pen injector Discontinued 10 mg SC EVERY WEEK 6.5 90 November 17, 2022 1:15pm December 23, 2022 11:44am Start: 11-17-2022 End: 12-23-2022 Tirzepatide (Mounjaro) 10 mg /0.5 mL pen injector Discontinued 10 mg SC EVERY WEEK 6.5 90 November 17, 2022 1:15pm December 23, 2022 11:44am Start: 11-17-2022 End: 12-23-2022 Tirzepatide (Mounjaro) 10 mg /0.5 mL pen injector Discontinued 10 MG SC EVERY WEEK 6.5 90 November 17, 2022 12:15pm December 23, 2022 10:44am Tirzepatide (Mounjaro) 5 mg/ 0.5 mL pen injector (6 sources) Start: 07-24-2022 End: 11-17-2022 Tirzepatide (Mounjaro) 5 mg/ 0.5 mL pen injector Discontinued 5 mg SC EVERY WEEK 6.5 90 July 24, 2022 12:00am November 17, 2022 1:15pm Start: 07-24-2022 End: 11-17-2022 Tirzepatide (Mounjaro) 5 mg/ 0.5 mL pen injector Discontinued 5 mg SC EVERY WEEK 6.5 July 24, 2022 12:00am November 17, 2022 1:15pm Start: 07-24-2022 End: 11-17-2022 Tirzepatide (Mounjaro) 5 mg/ 0.5 mL pen injector Discontinued 5 MG SC EVERY WEEK 6.5 July 23, 2022 11:00pm November 17, 2022 12:15pm Start: 07-24-2022 Tirzepatide (M ounjaro) 5 mg/0.5 mL pen injector Active 5 MG SC EVERY WEEK 6.5 July 23, 2022 11:00pm Start: 07-24-2022 Tirzepatide (M ounjaro) 5 mg/0.5 mL pen injector Active 5 MG SC EVERY WEEK 6.5 July 24, 2022 12:00am triamcinolone acetonide 40 mg/ml injectable suspension (7 sources) Corticosteroid Start: 05-01-2022 End: 05-01-2022 inject 60 mg by intramuscular injection once Triamcinolone Acetonide (Kenalog) 40 mg/mL suspension Discontinued 60 mg IM ONCE 1.5 0 May 01, 2022 12:00am May 01, 2022 3:23pm Start: 05-01-2022 End: 05-01-2022 inject 60 mg by intramuscular injection once Triamcinolone Acetonide (Kenalog) 40 mg/mL suspension Discontinued 60 MG IM ONCE 1.5 April 30, 2022 11:00pm May 01, 2022 2:23pm Problems Active Problems Problem Classification Problem Date Documented Da te Episodic/Chronic Abdominal pain (1 source) Unspecified abdominal pain; Translations: [Unspecified abdominal pain] Onset: 06-18-2025 Episodic Allergic reactions (1 source) Allergic contact dermatitis due to plants, except food; Translations: [Contact dermatitis and other eczema due to plants [except food]] Episodic Cardiac dysrhythmias (20 sources) Ventricular premature beats; Translations: [Atrial fibrillation] Onset: 06-02-2016 01-15-2017 Chronic Disorders of lipid metabolism (20 sources) Familial combined hyperlipidemia; Translations: [Hyperlipidemia] Onset: 08-07-2013 08-07-2013 Chronic Essential hypertension (15 sources) Hypertensive disorder; Translations: [Essential (primary) hypertension] Onset: 11-24-2012 11-24-2012 Chronic Comment on above: Controlled on three drug therapy Immunizations and screening for infectious disease (7 sources) Contact with and (suspected) exposure to other viral communicable diseases; Translations: [Contact with or exposure to viral disease] 07-25-2021 Episodic Nonspecific chest pain (7 sources) Chest pain; Translations: [Chest pain, unspecified] 02-25-2019 Episodic Other nutritional; endocrine; and metabolic disorders (9 [...] calories] Onset: 08-07-2013 Resolved: 10-19-2016 10-19-2016 Chronic Other nutritional; endocrine; and metabolic disorders (2 sources) Metabolic syndrome; Translations: [Dysmetabolic syndrome X] Chronic Other nutritional; endocrine; and metabolic disorders (2 sources) Lipoprotein deficiency; Translations: [Lipoprotein deficiencies] Chronic Other nutritional; endocrine; and metabolic disorders (2 sources) Body mass index (BMI) 40.0-44.9, adult; Translations: [Body Mass Index 40.0-44.9, adult] Chronic Other upper respiratory infections (16 sources) Acute upper respiratory infection; Translations: [Acute upper respiratory infection, unspecified] Episodic Residual codes; unclassified (15 sources) Obstructive sleep apnea syndrome; Translations: [Body mass index (BMI) 40.0-44.9, adult] Onset: 10-19-2016 10-19-2016 Chronic Residual codes; unclassified (3 sources) Obstructive sleep apnea (adult) (pediatric); Translations: [Obstructive sleep apnea (adult)(pediatric)] Chronic Sprains and strains (1 source) Strain of muscle, fascia and tendon of lower back, initial encounter; Translations: [Sprain of lumbar] Episodic Viral infection (7 sources) Viral disease; Translations: [Viral infection, unspecified] 02-25-2019 Episodic Past or Other Problems Problem Classification Problem Date Documented Da te Episodic/Chronic Cardiac dysrhythmias (6 sources) Palpitations; Translations: [Palpitations] Onset: 11-24-2012 11-24-2012 Episodic Fever of unknown origin (1 source) Fever, unspecified; Translations: [Fever, unspecified] Onset: 04-14-2025 Episodic Neoplasms of unspecified nature or uncertain [...] Results Test Name Value Interpretation Reference Range Facility CRP, High Sensitivity [id number] on 09-13-2025 CRP, HIGH SENS 134.20 mg/L High 0.00-3.00 [facility] Comment on above: Result Comment: Resu lts confirmed on dilution. Relative Risk for Future Cardiovascular Event Low <1.00 Average 1.00 - 3.00 High >3.00 Performed at: [address] [id number] Brake Mechanic: Carmine Box PhD, Phone: [phone] Performed By: #### L 500.4050, L3100.7870, L501.2400, L501.4021, L501.2450, L100.0100 #### [facility] [address] [place], [address] Amylaseon 09-12-2025 JORGE 28 U/L Normal 28-100 [facility] Comment on above: Order Comment: ADD O N JORGE Performed By: #### L 500.4050, L3100.7870, L501.2400, L501.4021, L501.2450, L100.0100 #### [facility] [address] [place], [address] CBC W/Diff, Automatedon 08-29 Absolute Lymph 0.99 X10 3/uL Normal 0.83-4.51 [facility] Comment on above: Performed By: #### L 500.4050, L3100.7870, L501.2400, L501.4021, L501.2450, L100.0100 #### [facility] [address] [place], [address] Absolute Neut 7.0 X10 3/uL Normal 2.0-7.7 [facility] Comment on above: Performed By: #### L 500.4050, L3100.7870, L501.2400, L501.4021, L501.2450, L100.0100 #### [facility] [address] [place], [address] Basophils/100 WBC (Bld) 0.2 % Normal 0-1 [facility] Comment on above: Performed By: #### L 500.4050, L3100.7870, L501.2400, L501.4021, L501.2450, L100.0100 #### [facility] [address] [place], [address] Eosinophils/100 WBC (Bld) 0.1 % Normal 0-5 [facility] Comment on above: Performed By: #### L 500.4050, L3100.7870, L501.2400, L501.4021, L501.2450, L100.0100 #### [facility] [address] [place], [address] Erythrocyte distribution width (RBC) [Ratio] 12.5 % Normal 11.6-14.6 [facility] Comment on above: Performed By: #### L 500.4050, L3100.7870, L501.2400, L501.4021, L501.2450, L100.0100 #### [facility] [address] [place], [address] Hematocrit (Bld) [Volume fraction] 40.7 % Normal 40-54 [facility] Comment on above: Performed By: #### L 500.4050, L3100.7870, L501.2400, L501.4021, L501.2450, L100.0100 #### [facility] [address] [place], [address] Hemoglobin (Bld) [Mass/Vol] 14.1 g/dL Normal 13.0-16.5 [facility] Comment on above: Performed By: #### L 500.4050, L3100.7870, L501.2400, L501.4021, L501.2450, L100.0100 #### [facility] [address] [place], [address] IG% 0.400 Normal 0.0-0.9 [facility] Comment on above: Result Comment: IG% - Immature Granulocytes (promyelocytes, myelocytes and metamyelocytes) > 1% indicates that a LEFT SHIFT is Present. Performed By: #### L 500.4050, L3100.7870, L501.2400, L501.4021, L501.2450, L100.0100 #### [facility] [address] [place], [address] Lymphocytes/100 WBC (Bld) 11.7 % Low 19-41 [facility] Comment on above: Performed By: #### L 500.4050, L3100.7870, L501.2400, L501.4021, L501.2450, L100.0100 #### [facility] [address] [place], [address] MCH (RBC) [Entitic mass] 31.1 pg Normal 27.0-32.0 [facility] Comment on above: Performed By: #### L 500.4050, L3100.7870, L501.2400, L501.4021, L501.2450, L100.0100 #### [facility] [address] [place], [address] MCHC (RBC) [Mass/Vol] 34.6 g/dL Normal 32-36 [facility] Comment on above: Performed By: #### L 500.4050, L3100.7870, L501.2400, L501.4021, L501.2450, L100.0100 #### [facility] [address] [place], [address] MCV (RBC) [Entitic vol] 89.8 fL Normal 80-94 [facility] Comment on above: Performed By: #### L 500.4050, L3100.7870, L501.2400, L501.4021, L501.2450, L100.0100 #### [facility] [address] [place], [address] Monocytes/100 WBC (Bld) 4.7 % Normal 0-10 [facility] Comment on above: Performed By: #### L 500.4050, L3100.7870, L501.2400, L501.4021, L501.2450, L100.0100 #### [facility] [address] [place], [address] Neutrophils/100 WBC (Bld) 82.9 % High 47-70 [facility] Comment on above: Performed By: #### L 500.4050, L3100.7870, L501.2400, L501.4021, L501.2450, L100.0100 #### [facility] [address] [place], [address] Nucleated RBC (Bld) [#/Vol] 0 10*3/uL Normal 0-5 [facility] Comment on above: Performed By: #### L 500.4050, L3100.7870, L501.2400, L501.4021, L501.2450, L100.0100 #### [facility] [address] [place], [address] Platelet mean volume (Bld) [Entitic vol] 9.5 fL Normal 6.2-12.0 [facility] Comment on above: Performed By: #### L 500.4050, L3100.7870, L501.2400, L501.4021, L501.2450, L100.0100 #### [facility] [address] [place], [address] Platelets (Bld) [#/Vol] 236 10*3/uL Normal 150-450 [facility] Comment on above: Performed By: #### L 500.4050, L3100.7870, L501.2400, L501.4021, L501.2450, L100.0100 #### [facility] [address] [place], [address] RBC (Bld) [#/Vol] 4.53 10*6/uL Low 4.6-6.2 [facility] Comment on above: Performed By: #### L 500.4050, L3100.7870, L501.2400, L501.4021, L501.2450, L100.0100 #### [facility] [address] [place], [address] RDW SD 40.8 fl Normal 35.1-43.9 [facility] Comment on above: Performed By: #### L 500.4050, L3100.7870, L501.2400, L501.4021, L501.2450, L100.0100 #### [facility] [address] [place], [address] WBC (Bld) [#/Vol] 8.5 10*3/uL Normal 4.4-11.0 [facility] Comment on above: Performed By: #### L 500.4050, L3100.7870, L501.2400, L501.4021, L501.2450, L100.0100 #### [facility] [address] [place], [address] [facility] 09-11-2025 Albumin [Mass/Vol] 4.2 g/dL Normal 3.5-5.0 [facility] Comment on above: Performed By: #### L 500.4050, L3100.7870, L501.2400, L501.4021, L501.2450, L100.0100 #### [facility] [address] [place], [address] Albumin/Globulin [Mass ratio] 1.4 {ratio} Normal 0.9-2.4 [facility] Comment on above: Performed By: #### L 500.4050, L3100.7870, L501.2400, L501.4021, L501.2450, L100.0100 #### [facility] [address] [place], [address] ALK PHOS 62 U/L Normal 40-129 [facility] Comment on above: Performed By: #### L 500.4050, L3100.7870, L501.2400, L501.4021, L501.2450, L100.0100 #### [facility] [address] [place], [address] ALT [Catalytic activity/Vol] 57 U/L High <=46 [facility] Comment on above: Performed By: #### L 500.4050, L3100.7870, L501.2400, L501.4021, L501.2450, L100.0100 #### [facility] [address] [place], [address] AST [Catalytic activity/Vol] 34 U/L Normal <=37 [facility] Comment on above: Performed By: #### L 500.4050, L3100.7870, L501.2400, L501.4021, L501.2450, L100.0100 #### [facility] [address] [place], [address] Bilirubin [Mass/Vol] 0.98 mg/dL Normal 0.00-1.30 [facility] Comment on above: Performed By: #### L 500.4050, L3100.7870, L501.2400, L501.4021, L501.2450, L100.0100 #### [facility] [address] [place], [address] BUN/CRE 19.7 RATIO Normal 10-20 [facility] Comment on above: Performed By: #### L 500.4050, L3100.7870, L501.2400, L501.4021, L501.2450, L100.0100 #### [facility] [address] [place], [address] Calcium [Mass/Vol] 9.9 mg/dL Normal 7.6-11.0 [facility] Comment on above: Performed By: #### L 500.4050, L3100.7870, L501.2400, L501.4021, L501.2450, L100.0100 #### [facility] [address] [place], [address] Chloride [Moles/Vol] 99 mmol/L Normal 98-108 [facility] Comment on above: Performed By: #### L 500.4050, L3100.7870, L501.2400, L501.4021, L501.2450, L100.0100 #### [facility] [address] [place], [address] CO2 [Moles/Vol] 26.5 mmol/L Normal 21.0-32.0 [facility] Comment on above: Performed By: #### L 500.4050, L3100.7870, L501.2400, L501.4021, L501.2450, L100.0100 #### [facility] [address] [place], [address] Creatinine [Mass/Vol] 0.93 mg/dL Normal 0.70-1.20 [facility] Comment on above: Performed By: #### L 500.4050, L3100.7870, L501.2400, L501.4021, L501.2450, L100.0100 #### [facility] [address] [place], [address] GAP 12 Normal 5-15 [facility] Comment on above: Performed By: #### L 500.4050, L3100.7870, L501.2400, L501.4021, L501.2450, L100.0100 #### [facility] [address] [place], [address] GFR/1.73 sq M.predicted among non-blacks MDRD (S/P/Bld) [Vol rate/Area] 111 mL/min/{1.73_m2} Normal >60 [facility] Comment on above: Result Comment: mL/m in/1.73m2 CKD-EPI Creatinine Equation (2020) Performed By: #### L 500.4050, L3100.7870, L501.2400, L501.4021, L501.2450, L100.0100 #### [facility] [address] [place], [address] Globulin (S) [Mass/Vol] 3.0 g/dL Normal 2.2-4.2 [facility] Comment on above: Performed By: #### L 500.4050, L3100.7870, L501.2400, L501.4021, L501.2450, L100.0100 #### [facility] [address] [place], [address] Glucose [Mass/Vol] 87 mg/dL Normal 70-99 [facility] Comment on above: Performed By: #### L 500.4050, L3100.7870, L501.2400, L501.4021, L501.2450, L100.0100 #### [facility] [address] [place], [address] Potassium [Moles/Vol] 3.8 mmol/L Normal 3.3-5.1 [facility] Comment on above: Performed By: #### L 500.4050, L3100.7870, L501.2400, L501.4021, L501.2450, L100.0100 #### [facility] [address] [place], [address] Sodium [Moles/Vol] 138 mmol/L Normal 133-145 [facility] Comment on above: Performed By: #### L 500.4050, L3100.7870, L501.2400, L501.4021, L501.2450, L100.0100 #### [facility] [address] [place], [address] T PROT 7.2 g/dL Normal 5.9-8.4 [facility] Comment on above: Performed By: #### L 500.4050, L3100.7870, L501.2400, L501.4021, L501.2450, L100.0100 #### [facility] [address] [place], [address] Urea nitrogen [Mass/Vol] 18 mg/dL Normal 4-19 [facility] Comment on above: Performed By: #### L 500.4050, L3100.7870, L501.2400, L501.4021, L501.2450, L100.0100 #### [facility] [address] [place], [address] L501.4021on 09-11-2025 Trop T High Sen < 6 Normal <=22 [facility] Comment on above: Performed By: #### L 500.4050, L3100.7870, L501.2400, L501.4021, L501.2450, L100.0100 #### [facility] [address] [place], [address] Lipaseon 09-11-2025 Lipase [Catalytic activity/Vol] 20 U/L Normal 13-75 [facility] Comment on above: Result Comment: Rima carr note: LIPASE revised reference range effective 23. New Lipase methodology. Expected to produce lower values than the previous assay method. NEW Reference Range: 13 - 75 U/L Performed By: #### L 500.4050, L3100.7870, L501.2400, L501.4021, L501.2450, L100.0100 #### [facility] [address] [place], [place], [id number] HIVon 08-08-2025 HIV Non-Reactive Normal Nonreactive [facility] Comment on above: Order Comment: PLEAS E REFLEX HECAB HIV IF POSITIVE Result Comment: Non- Reactive Reactive Repeatedly reactive samples must be confirmed according to CDC recommended confirmatory algorithms. The subresults for either HIVAG or AHIV can be used as an aid in the selection of the confirmation algorithm for reactive samples. Send out specimens with Reactive results to [facility] for confirmation. Order the HIV antibody detection and differentiation: [id number] Performed By: #### L 3890.6006, L3890.6301, L3890.6102, L509.8002 #### [facility] [address] [facility] [place], [place], [id number] Hepatitis C Antibodyon 08-08 Hepatitis C Ab Non-Reactive Normal Nonreactive [facility] Comment on above: Order Comment: PLEAS E REFLEX HECAB HIV IF POSITIVE Result Comment: Reac tive: Presumptive evidence of antibodies to HCV. Follow CDC recommendations for supplemental testing. Non-Reactive: Antibodies to HCV were not detected; does not exclude the possibility of exposure to HCV Reactive Results are presumptive evidence of antibodies to HCV. Follow CDC recommendations for supplemental testing. Order confirmation testing: HCV Quant by PCR testing - HCVPCR #[id number] Non Reactive: < 0.8 Equivocal: >/= 0.8 to < 1.0 Reactive: >/= 1.0 The CDC requires that a reactive/equivocal HCV antibody result be sent out for confirmation. HCV Quant by PCR testing. Performed By: #### L 3890.6006, L3890.6301, L3890.6102, L509.8002 #### [facility] [address] [facility] [place], [place], [id number] L3890.6102on 08-08-2025 HEP B Surf Ag Non-Reactive Normal Nonreactive [facility] Comment on above: Order Comment: PLEAS E REFLEX HECAB HIV IF POSITIVE Result Comment: Reac tive: Presumptive evidence of HBV. Repeatedly reactive samples must be confirmed using a neutralization test ([employer] HBsAg Confirmatory Test) Non-Reactive: HBsAg not detected; does not exclude the possibility of exposure to HBV Performed By: #### L 3890.6006, L3890.6301, L3890.6102, L509.8002 #### [facility] [address] [place], [address] Laboratory - Microbiology an d Antimicrobial susceptibilityOrdered By: Savita Arthur on 08-08-2025 HBV surface Ag Ql (S) Non-Reactive Nonreactive [facility] Comment on above: Reactive: Presumptiv e evidence of HBV. Repeatedly reactive samples must be confirmed using a neutralization test ([employer] HBsAg Confirmatory Test)Non-Reactive: HBsAg not detected; does not exclude the possibility of exposure to HBV No Panel InformationOrdered By: Savita Arthur on 08-08-2025 HIV (1&2) Antibody Non-Reactive Nonreactive [facility] Comment on above: Non-ReactiveReactive Repeatedly reactive samples must be confirmed according to CDC recommended confirmatory algorithms. The subresults for either HIVAG or AHIV can be used as an aid in the selection of the confirmation algorithm for reactive samples.Send out specimens with Reactive results to [facility] for confirmation.Order the HIV antibody detection and differentiation: #[id number] Syphilis Antibodieson 2024 Syphilis Abs Non-Reactive Normal Nonreactive [facility] Comment on above: Order Comment: PLEAS E REFLEX HECAB HIV IF POSITIVE Performed By: #### L 3890.6006, L3890.6301, L3890.6102, L509.8002 #### [facility] [address] [facility] [place], [place], [id number] Absolute lymphocyte countOrd ered By: [facility] Sarita Abreu on 06-12-2025 Lymphocytes Auto (Unsp spec) [#/Vol] 1.67 10*3/uL 0.83-4.51 [facility] Absolute neutrophil countOrd ered By: [facility] Sarita Abreu on 06-12-2025 Neutrophils (Bld) [#/Vol] 3.8 10*3/uL 2.0-7.7 [facility] Amylaseon 06-12-2025 JORGE 40 U/L Normal 28-100 [facility] Comment on above: Performed By: #### L 500.4050, L3100.7870, L501.2400, L501.4021, L501.2450, L100.0100 #### [facility] [address] [place], [address] Anion gap in Serum or Plasma Ordered By: [facility] Sarita Abreu on 06-12-2025 Anion gap [Moles/Vol] 12 mmol/L 04-12 [facility] Automated lymphocyte count a s percentage of total leukocytesOrdered By: [facility] on 06-12-2025 Lymphocytes/100 WBC Auto (Unsp spec) 28.4 % - [facility] BUN/creatinine ratioOrdered By: [facility] Brady on 06-12-2025 Urea nitrogen/Creatinine [Mass ratio] 13.6 mg/mg 10- [facility] Basophil percentageOrdered B y: [facility] Brady on 06-12-2025 Basophils/100 WBC (Bld) 0.7 % 0-1 [facility] Bilirubin, totalOrdered By: [facility] Brady on 06-12-2025 Bilirubin [Mass/Vol] 0.51 mg/dL 0.00-1.30 [facility] CBC W/Diff, Automatedon 05-29 Absolute Lymph 1.67 X10 3/uL Normal 0.83-4.51 [facility] Comment on above: Performed By: #### L 500.4050, L3100.7870, L501.2400, L501.4021, L501.2450, L100.0100 #### [facility] [address] [place], [address] Absolute Neut 3.8 X10 3/uL Normal 2.0-7.7 [facility] Comment on above: Performed By: #### L 500.4050, L3100.7870, L501.2400, L501.4021, L501.2450, L100.0100 #### [facility] [address] [place], [address] Basophils/100 WBC (Bld) 0.7 % Normal 0-1 [facility] Comment on above: Performed By: #### L 500.4050, L3100.7870, L501.2400, L501.4021, L501.2450, L100.0100 #### [facility] [address] [place], [address] Eosinophils/100 WBC (Bld) 0.9 % Normal 0-5 [facility] Comment on above: Performed By: #### L 500.4050, L3100.7870, L501.2400, L501.4021, L501.2450, L100.0100 #### [facility] [address] [place], [address] Erythrocyte distribution width (RBC) [Ratio] 12.3 % Normal 11.6-14.6 [facility] Comment on above: Performed By: #### L 500.4050, L3100.7870, L501.2400, L501.4021, L501.2450, L100.0100 #### [facility] [address] [place], [address] Hematocrit (Bld) [Volume fraction] 39.2 % Low 40-54 [facility] Comment on above: Performed By: #### L 500.4050, L3100.7870, L501.2400, L501.4021, L501.2450, L100.0100 #### [facility] [address] [place], [address] Hemoglobin (Bld) [Mass/Vol] 13.7 g/dL Normal 13.0-16.5 [facility] Comment on above: Performed By: #### L 500.4050, L3100.7870, L501.2400, L501.4021, L501.2450, L100.0100 #### [facility] [address] [place], [address] IG% 0.200 Normal 0.0-0.9 [facility] Comment on above: Result Comment: IG% - Immature Granulocytes (promyelocytes, myelocytes and metamyelocytes) > 1% indicates that a LEFT SHIFT is Present. Performed By: #### L 500.4050, L3100.7870, L501.2400, L501.4021, L501.2450, L100.0100 #### [facility] [address] [place], [address] Lymphocytes/100 WBC (Bld) 28.4 % Normal 19-41 [facility] Comment on above: Performed By: #### L 500.4050, L3100.7870, L501.2400, L501.4021, L501.2450, L100.0100 #### [facility] [address] [facility] [place], [address] MCH (RBC) [Entitic mass] 30.1 pg Normal 27.0-32.0 [facility] Comment on above: Performed By: #### L 500.4050, L3100.7870, L501.2400, L501.4021, L501.2450, L100.0100 #### [facility] [address] [place], [address] MCHC (RBC) [Mass/Vol] 34.9 g/dL Normal 32-36 [facility] Comment on above: Performed By: #### L 500.4050, L3100.7870, L501.2400, L501.4021, L501.2450, L100.0100 #### [facility] [address] [place], [address] MCV (RBC) [Entitic vol] 86.2 fL Normal 80-94 [facility] Comment on above: Performed By: #### L 500.4050, L3100.7870, L501.2400, L501.4021, L501.2450, L100.0100 #### [facility] [address] [place], [address] Monocytes/100 WBC (Bld) 6.0 % Normal 0-10 [facility] Comment on above: Performed By: #### L 500.4050, L3100.7870, L501.2400, L501.4021, L501.2450, L100.0100 #### [facility] [address] [place], [address] Neutrophils/100 WBC (Bld) 63.8 % Normal 47-70 [facility] Comment on above: Performed By: #### L 500.4050, L3100.7870, L501.2400, L501.4021, L501.2450, L100.0100 #### [facility] [address] [place], [address] Nucleated RBC (Bld) [#/Vol] 0 10*3/uL Normal 0-5 [facility] Comment on above: Performed By: #### L 500.4050, L3100.7870, L501.2400, L501.4021, L501.2450, L100.0100 #### [facility] [address] [place], [address] Platelet mean volume (Bld) [Entitic vol] 10.5 fL Normal 6.2-12.0 [facility] Comment on above: Performed By: #### L 500.4050, L3100.7870, L501.2400, L501.4021, L501.2450, L100.0100 #### [facility] [address] [place], [address] Platelets (Bld) [#/Vol] 198 10*3/uL Normal 150-450 [facility] Comment on above: Performed By: #### L 500.4050, L3100.7870, L501.2400, L501.4021, L501.2450, L100.0100 #### [facility] [address] [place], [address] RBC (Bld) [#/Vol] 4.55 10*6/uL Low 4.6-6.2 [facility] Comment on above: Performed By: #### L 500.4050, L3100.7870, L501.2400, L501.4021, L501.2450, L100.0100 #### [facility] [address] [place], [address] RDW SD 38.7 fl Normal 35.1-43.9 [facility] Comment on above: Performed By: #### L 500.4050, L3100.7870, L501.2400, L501.4021, L501.2450, L100.0100 #### [facility] [address] [place], [address] WBC (Bld) [#/Vol] 5.9 10*3/uL Normal 4.4-11.0 [facility] Comment on above: Performed By: #### L 500.4050, L3100.7870, L501.2400, L501.4021, L501.2450, L100.0100 #### [facility] [address] [place], [address] CRPon 06-12-2025 C-REACTIVE PROT 4.08 mg/L High 0.0-3.0 [facility] Comment on above: Performed By: #### L 500.4050, L3100.7870, L501.2400, L501.4021, L501.2450, L100.0100 #### [facility] [address] [place], [address] Carbon dioxide, total [Moles /volume] in Central venous bloodOrdered By: [facility] Sarita Abreu on 06-12-2025 CO2 [Moles/Vol] 22.0 mmol/L 21.0-32.0 [facility] Chloride assayOrdered By: VS Mac Stein Brady on 06-12-2025 Chloride [Moles/Vol] 104 mmol/L 98-108 [facility] Comprehensive Metabolic Prof ilon 06-12-2025 Albumin [Mass/Vol] 4.2 g/dL Normal 3.5-5.0 [facility] Comment on above: Performed By: #### L 500.4050, L3100.7870, L501.2400, L501.4021, L501.2450, L100.0100 #### [facility] [address] [place], [address] Albumin/Globulin [Mass ratio] 1.6 {ratio} Normal 0.9-2.4 [facility] Comment on above: Performed By: #### L 500.4050, L3100.7870, L501.2400, L501.4021, L501.2450, L100.0100 #### [facility] [address] [place], [address] ALK PHOS 61 U/L Normal 40-129 [facility] Comment on above: Performed By: #### L 500.4050, L3100.7870, L501.2400, L501.4021, L501.2450, L100.0100 #### [facility] [address] [place], [address] ALT [Catalytic activity/Vol] 18 U/L Normal <=46 [facility] Comment on above: Performed By: #### L 500.4050, L3100.7870, L501.2400, L501.4021, L501.2450, L100.0100 #### [facility] [address] [place], [address] AST [Catalytic activity/Vol] 20 U/L Normal <=37 [facility] Comment on above: Performed By: #### L 500.4050, L3100.7870, L501.2400, L501.4021, L501.2450, L100.0100 #### [facility] [address] [place], [address] Bilirubin [Mass/Vol] 0.51 mg/dL Normal 0.00-1.30 [facility] Comment on above: Performed By: #### L 500.4050, L3100.7870, L501.2400, L501.4021, L501.2450, L100.0100 #### [facility] [address] [place], [address] BUN/CRE 13.6 RATIO Normal 10-20 [facility] Comment on above: Performed By: #### L 500.4050, L3100.7870, L501.2400, L501.4021, L501.2450, L100.0100 #### [facility] [address] [place], [address] Calcium [Mass/Vol] 9.3 mg/dL Normal 7.6-11.0 [facility] Comment on above: Performed By: #### L 500.4050, L3100.7870, L501.2400, L501.4021, L501.2450, L100.0100 #### [facility] [address] [place], [address] Chloride [Moles/Vol] 104 mmol/L Normal 98-108 [facility] Comment on above: Performed By: #### L 500.4050, L3100.7870, L501.2400, L501.4021, L501.2450, L100.0100 #### [facility] [address] [place], [address] CO2 [Moles/Vol] 22.0 mmol/L Normal 21.0-32.0 [facility] Comment on above: Performed By: #### L 500.4050, L3100.7870, L501.2400, L501.4021, L501.2450, L100.0100 #### [facility] [address] [place], [address] Creatinine [Mass/Vol] 1.13 mg/dL Normal 0.70-1.20 [facility] Comment on above: Performed By: #### L 500.4050, L3100.7870, L501.2400, L501.4021, L501.2450, L100.0100 #### [facility] [address] [place], [address] GAP 12 Normal 5-15 [facility] Comment on above: Performed By: #### L 500.4050, L3100.7870, L501.2400, L501.4021, L501.2450, L100.0100 #### [facility] [address] [place], [address] GFR/1.73 sq M.predicted among non-blacks MDRD (S/P/Bld) [Vol rate/Area] 87 mL/min/{1.73_m2} Normal >60 [facility] Comment on above: Result Comment: mL/m in/1.73m2 CKD-EPI Creatinine Equation (2020) Performed By: #### L 500.4050, L3100.7870, L501.2400, L501.4021, L501.2450, L100.0100 #### [facility] [address] [place], [address] Globulin (S) [Mass/Vol] 2.6 g/dL Normal 2.2-4.2 [facility] Comment on above: Performed By: #### L 500.4050, L3100.7870, L501.2400, L501.4021, L501.2450, L100.0100 #### [facility] [address] [place], [address] Glucose [Mass/Vol] 91 mg/dL Normal 70-99 [facility] Comment on above: Performed By: #### L 500.4050, L3100.7870, L501.2400, L501.4021, L501.2450, L100.0100 #### [facility] [address] [place], [address] Potassium [Moles/Vol] 3.9 mmol/L Normal 3.3-5.1 [facility] Comment on above: Performed By: #### L 500.4050, L3100.7870, L501.2400, L501.4021, L501.2450, L100.0100 #### [facility] [address] [place], [address] Sodium [Moles/Vol] 138 mmol/L Normal 133-145 [facility] Comment on above: Performed By: #### L 500.4050, L3100.7870, L501.2400, L501.4021, L501.2450, L100.0100 #### [facility] [address] [place], [address] T PROT 6.9 g/dL Normal 5.9-8.4 [facility] Comment on above: Performed By: #### L 500.4050, L3100.7870, L501.2400, L501.4021, L501.2450, L100.0100 #### [facility] [address] [place], [address] Urea nitrogen [Mass/Vol] 15 mg/dL Normal 4-19 [facility] Comment on above: Performed By: #### L 500.4050, L3100.7870, L501.2400, L501.4021, L501.2450, L100.0100 #### [facility] [address] [place], [address] Eosinophil percentageOrdered By: [facility] Sarita Abreu on 06-12-2025 Eosinophils/100 WBC (Bld) 0.9 % 0-5 [facility] Erythrocyte Sed Rateon 06-12 SED RATE 2 mm/hr Normal 0-20 [facility] Comment on above: Performed By: #### L 500.4050, L3100.7870, L501.2400, L501.4021, L501.2450, L100.0100 #### [facility] [place], [address] Erythrocyte distribution wid th ratioOrdered By: [facility] Sarita Abreu on 06-12-2025 Erythrocyte distribution width (RBC) [Ratio] 12.3 % 11.6-14.6 [facility] Erythrocyte distribution wid th standard deviationOrdered By: [facility] Sarita Abreu on 06-12-2025 Erythrocyte distribution width (RBC) [Ratio] 38.7 fl 35.1-43.9 [facility] Erythrocyte sedimentation ra teOrdered By: [facility] Sarita Abreu on 06-12-2025 ESR (Bld) [Velocity] 2 mm/h 0-20 [facility] Glomerular filtration rate ( GFR) estimation/1.73 sq m using serum, plasma, or whole bOrdered By: [facility] Sarita Abreu on 06-12-2025 GFR/1.73 sq M.predicted among non-blacks MDRD (S/P/Bld) [Vol rate/Area] 87 mL/min/{1.73_m2} >60 [facility] Comment on above: mL/min/1.73m2 CKD-EP I Creatinine Equation (2020) Hematocrit Auto (Bld) [Volum e fraction]Ordered By: [facility] Sarita Abreu on 06-12-2025 Hematocrit (Bld) [Volume fraction] 39.2 % Low 40-54 [facility] Hemoglobin measurementOrdere d By: [facility] Sarita Abreu on 06-12-2025 Hemoglobin (Bld) [Mass/Vol] 13.7 g/dL 13.0-16.5 [facility] Immature granulocytes/100 WB C Auto (Bld)Ordered By: [facility] Sarita Abreu on 06-12-2025 Immature granulocytes/100 WBC (Bld) 0.200 % 0.0-0.9 [facility] Comment on above: IG% - Immature Granu locytes (promyelocytes, myelocytes and metamyelocytes) > 1% indicates that a LEFT SHIFT is Present. Laboratory - Chemistry and C hemistry - challengeOrdered By: [facility] Sarita Abreu on 06-12-2025 AST [Catalytic activity/Vol] 20 U/L <38 [facility] Lipaseon 06-12-2025 Lipase [Catalytic activity/Vol] 44 U/L Normal 13-75 [facility] Comment on above: Result Comment: Rima carr note: LIPASE revised reference range effective 23. New Lipase methodology. Expected to produce lower values than the previous assay method. NEW Reference Range: 13 - 75 U/L Performed By: #### L 500.4050, L3100.7870, L501.2400, L501.4021, L501.2450, L100.0100 #### [facility] [address] [place] [address], [address] Lipase measurementOrdered By : [facility] Sarita Abreu on 06-12-2025 Lipase [Catalytic activity/Vol] 44 U/L 13-75 [facility] Comment on above: Please note:LIPASE r evised reference range effective 23. New Lipase methodology. Expected to produce lower values than the previous assay method. NEW Reference Range: 13 - 75 U/L MCV (mean corpuscular volume ) determinationOrdered By: [facility] Sarita Abreu on 06-12-2025 MCV (RBC) [Entitic vol] 86.2 fL 80-94 [facility] Mean corpuscular hemoglobin (MCH) determinationOrdered By: [facility] Sarita Abreu on 06-12-2025 MCH (RBC) [Entitic mass] 30.1 pg 27.0-32.0 [facility] Mean corpuscular hemoglobin concentration (MCHC) determinationOrdered By: [facility] Sarita Abreu on 06-12-2025 MCHC (RBC) [Mass/Vol] 34.9 g/dL 32-36 [facility] Mean platelet volume determi nationOrdered By: [facility] Sarita Abreu on 06-12-2025 Platelet mean volume (Bld) [Entitic vol] 10.5 fL 6.2-12.0 [facility] Monocyte percentageOrdered B y: [facility] Sarita Brady on 06-12-2025 Monocytes/100 WBC (Bld) 6.0 % 0-10 [facility] Neutrophil percentageOrdered By: [facility] Sarita Brady on 06-12-2025 Neutrophils/100 WBC (Bld) 63.8 % 47-70 [facility] Nucleated red blood cell per centageOrdered By: [facility] Saritaregina Abreu on 06-12-2025 Nucleated RBC/100 WBC (Bld) [Ratio] 0 % 0-5 [facility] Platelet countOrdered By: [facility] Sarita Abreu on 06-12-2025 Platelets (Bld) [#/Vol] 198 10*3/uL 150-450 [facility] Potassium measurement (mass/ volume)Ordered By: [facility] Sarita Abreu on 06-12-2025 Potassium (Unsp spec) [Mass/Vol] 3.9 mmol/L 3.3-5.1 [facility] RBC Auto (Bld) [#/Vol]Ordere d By: [facility] Sarita Brady on 06-12-2025 RBC (Bld) [#/Vol] 4.55 10*6/uL Low 4.6-6.2 [facility] Serum creatinine measurement (mass/volume)Ordered By: [facility] Sarita Abreu on 06-12-2025 Creatinine [Mass/Vol] 1.13 mg/dL 0.70-1.20 [facility] Serum globulin measurementOr dered By: [facility] Saritaregina Abreu on 06-12-2025 Globulin (S) [Mass/Vol] 2.6 g/dL 2.2-4.2 [facility] Serum glucose measurement (m ass/volume)Ordered By: [facility] Sarita Abreu on 06-12-2025 Glucose [Mass/Vol] 91 mg/dL 70-99 [facility] Serum or plasma C reactive p rotein measurement (mass/volume)Ordered By: [facility] Sarita Abreu on 06-12-2025 CRP [Mass/Vol] 4.08 mg/L High 0.0-3.0 [facility] Serum or plasma alanine potter otransferase (ALT) measurementOrdered By: [facility] Sarita Abreu on 06-12-2025 ALT [Catalytic activity/Vol] 18 U/L <47 [facility] Serum or plasma albumin curt urement (mass/volume)Ordered By: [facility] Sarita Abreu on 06-12-2025 Albumin [Mass/Vol] 4.2 g/dL 3.5-5.0 [facility] Serum or plasma albumin/glob ulin mass ratioOrdered By: [facility] Sarita Abrue on 06-12-2025 Albumin/Globulin [Mass ratio] 1.6 {ratio} 0.9-2.4 [facility] Serum or plasma alkaline jj sphatase measurementOrdered By: [facility] Brady on 06-12-2025 ALP [Catalytic activity/Vol] 61 U/L 40-129 [facility] Serum or plasma amylase curt urement (enzymatic activity/volume)[facility] on 06-12-2025 Amylase [Catalytic activity/Vol] 40 U/L 28-100 [facility] Serum or plasma calcium curt urement (mass/volume)Ordered By: [facility] Sarita Abreu on 06-12-2025 Calcium [Mass/Vol] 9.3 mg/dL 7.6-11.0 [facility] Serum or plasma urea nitroge n measurement (mass/volume)Ordered By: [facility] Sarita Abreu on 06-12-2025 Urea nitrogen [Mass/Vol] 15 mg/dL 4-19 [facility] Sodium levelOrdered By: [facility] 06-12-2025 Sodium [Moles/Vol] 138 mmol/L 133-145 [facility] Total proteinOrdered By: [facility] Sarita Abreu on 06-12-2025 Protein [Mass/Vol] 6.9 g/dL 5.9-8.4 [facility] White blood cell (WBC) count Ordered By: [facility] Sarita Abreu on 06-12-2025 WBC (Bld) [#/Vol] 5.9 10*3/uL 4.4-11.0 [facility] Lyme Antibodies,W [place] Lyme Additional Comment Normal . [facility] Comment on above: Result Comment: Per CDC criteria, the Lyme IgG Immunoblot is interpreted as positive if IgG-class antibodies are detected to 5 or more B. burgdorferi proteins, and the Lyme IgM Immunoblot is interpreted as positive if IgM-class antibodies are detected to 2 or more B. burgdorferi proteins. Immunoblot patterns not meeting these criteria should not be interpreted as positive. Epitopes from certain B. burgdorferi proteins (e.g., p41) are conserved across other bacteria, which may lead to the detection of IgM-and/or IgG class antibodies on the Lyme disease immunoblots in patients without Lyme disease. Immunoblot should only be ordered on specimens that are positive or equivocal by an FDA-licensed Lyme disease antibody screening test (e.g., EIA). Results of the Lyme IgM immunoblot should not be considered in patients with 30 or more days of symptoms. Performed at: [address] [id number] Brake Mechanic: Bruna Barton MD, Phone: [phone] Performed By: #### L 500.4050, L3100.7870, L501.2400, L501.4021, L501.2450, L100.0100 #### [facility] [address] [facility] [place], [place], [id number] LYME IgG INTERP Negative Normal Negative [facility] Comment on above: Performed By: #### L 500.4050, L3100.7870, L501.2400, L501.4021, L501.2450, L100.0100 #### [facility] [address] [facility]. [place], [place], [id number] LYME IgM INTERP Negative Normal Negative [facility] Comment on above: Result Comment: Rima carr Note: Lyme immunoblot alone is not recommended for the diagnosis of Lyme disease. Current guidelines recommend the use of a two-tiered approach to Lyme serology testing to improve the sensitivity and specificity of testing. [facility] offers test code 583841 Lyme Disease Serology with Reflex to aid in the diagnosis of Lyme Disease. Performed By: #### L 500.4050, L3100.7870, L501.2400, L501.4021, L501.2450, L100.0100 #### [facility] [address] [place], [address] P18 Ab Absent Normal . [facility] Comment on above: Performed By: #### L 500.4050, L3100.7870, L501.2400, L501.4021, L501.2450, L100.0100 #### [facility] [address] [place], [address] P23 Ab Absent Normal . [facility] Comment on above: Performed By: #### L 500.4050, L3100.7870, L501.2400, L501.4021, L501.2450, L100.0100 #### [facility] [address] [place], [address] P23 Ab Present Normal . [facility] Comment on above: Performed By: #### L 500.4050, L3100.7870, L501.2400, L501.4021, L501.2450, L100.0100 #### [facility] [address] [place], [address] P28 Ab Absent Normal . [facility] Comment on above: Performed By: #### L 500.4050, L3100.7870, L501.2400, L501.4021, L501.2450, L100.0100 #### [facility] [address] [place], [address] P30 Ab Absent Normal . [facility] Comment on above: Performed By: #### L 500.4050, L3100.7870, L501.2400, L501.4021, L501.2450, L100.0100 #### [facility] [address] [place], [address] P39 Ab Present Normal . [facility] Comment on above: Performed By: #### L 500.4050, L3100.7870, L501.2400, L501.4021, L501.2450, L100.0100 #### [facility] [address] [place], [address] P39 Ab Absent Normal . [facility] Comment on above: Performed By: #### L 500.4050, L3100.7870, L501.2400, L501.4021, L501.2450, L100.0100 #### [facility] [address] [place], [address] P41 Ab Present Normal . [facility] Comment on above: Performed By: #### L 500.4050, L3100.7870, L501.2400, L501.4021, L501.2450, L100.0100 #### [facility] [address] [place], [address] P41 Ab Absent Normal . [facility] Comment on above: Performed By: #### L 500.4050, L3100.7870, L501.2400, L501.4021, L501.2450, L100.0100 #### [facility] [address] [place], [address] P45 Ab Absent Normal . [facility] Comment on above: Performed By: #### L 500.4050, L3100.7870, L501.2400, L501.4021, L501.2450, L100.0100 #### [facility] [address] [place], [address] P58 Ab Absent Normal . [facility] Comment on above: Performed By: #### L 500.4050, L3100.7870, L501.2400, L501.4021, L501.2450, L100.0100 #### [facility] [address] [place], [address] P66 Ab Absent Normal . [facility] Comment on above: Performed By: #### L 500.4050, L3100.7870, L501.2400, L501.4021, L501.2450, L100.0100 #### [facility] [address] [place], [address] P93 Ab Absent Normal . [facility] Comment on above: Performed By: #### L 500.4050, L3100.7870, L501.2400, L501.4021, L501.2450, L100.0100 #### [facility] [address] [place], [address] Absolute lymphocyte countOrd ered By: [facility] A[facility] on 04-11-2025 Lymphocytes Auto (Unsp spec) [#/Vol] 0.95 10*3/uL 0.83-4.51 [facility] Absolute neutrophil countOrd ered By: [facility] Brady on 04-11-2025 Neutrophils (Bld) [#/Vol] 4.0 10*3/uL 2.0-7.7 [facility] Anion gap in Serum or Plasma Or[facility] By: [facility] A[facility] on 04-11-2025 Anion gap [Moles/Vol] 11 mmol/L 5-15 [facility] Automated lymphocyte count a s percentage of total leukocytesOrdered By: [facility] Abreu on 04-11-2025 Lymphocytes/100 WBC Auto (Unsp spec) 17.6 % Low 19-41 [facility] BUN/creatinine ratioOrdered By: [facility] Brady on 04-11-2025 Urea nitrogen/Creatinine [Mass ratio] 15.0 mg/mg 10-20 [facility] Basophil percentageOrdered B y: [facility] Sarita Abreu on 04-11-2025 Basophils/100 WBC (Bld) 0.7 % 0-1 [facility] Bilirubin, totalOrdered By: [facility] Abre[facility] on 04-11-2025 Bilirubin [Mass/Vol] 0.75 mg/dL 0.00-1.30 [facility] CBC W/Diff, Automatedon 03-29 Absolute Lymph 0.95 X10 3/uL Normal 0.83-4.51 [facility] Comment on above: Performed By: #### L 500.4050, L3100.7870, L501.2400, L501.4021, L501.2450, L100.0100 #### [facility] [address] [place], [address] Absolute Neut 4.0 X10 3/uL Normal 2.0-7.7 [facility] Comment on above: Performed By: #### L 500.4050, L3100.7870, L501.2400, L501.4021, L501.2450, L100.0100 #### [facility] [address] [place], [address] Basophils/100 WBC (Bld) 0.7 % Normal 0-1 [facility] Comment on above: Performed By: #### L 500.4050, L3100.7870, L501.2400, L501.4021, L501.2450, L100.0100 #### [facility] [address] [place], [address] Eosinophils/100 WBC (Bld) 0.2 % Normal 0-5 [facility] Comment on above: Performed By: #### L 500.4050, L3100.7870, L501.2400, L501.4021, L501.2450, L100.0100 #### [facility] [address] [place], [address] Erythrocyte distribution width (RBC) [Ratio] 11.6 % Normal 11.6-14.6 [facility] Comment on above: Performed By: #### L 500.4050, L3100.7870, L501.2400, L501.4021, L501.2450, L100.0100 #### [facility] [address] [place], [address] Hematocrit (Bld) [Volume fraction] 40.4 % Normal 40-54 [facility] Comment on above: Performed By: #### L 500.4050, L3100.7870, L501.2400, L501.4021, L501.2450, L100.0100 #### [facility] [address] [place], [address] Hemoglobin (Bld) [Mass/Vol] 14.2 g/dL Normal 13.0-16.5 [facility] Comment on above: Performed By: #### L 500.4050, L3100.7870, L501.2400, L501.4021, L501.2450, L100.0100 #### [facility] [address] [place], [address] IG% 0.200 Normal 0.0-0.9 [facility] Comment on above: Result Comment: IG% - Immature Granulocytes (promyelocytes, myelocytes and metamyelocytes) > 1% indicates that a LEFT SHIFT is Present. Performed By: #### L 500.4050, L3100.7870, L501.2400, L501.4021, L501.2450, L100.0100 #### [facility] [address] [place], [address] Lymphocytes/100 WBC (Bld) 17.6 % Low 19-41 [facility] Comment on above: Performed By: #### L 500.4050, L3100.7870, L501.2400, L501.4021, L501.2450, L100.0100 #### [facility] [address] [place], [address] MCH (RBC) [Entitic mass] 30.7 pg Normal 27.0-32.0 [facility] Comment on above: Performed By: #### L 500.4050, L3100.7870, L501.2400, L501.4021, L501.2450, L100.0100 #### [facility] [address] [place], [address] MCHC (RBC) [Mass/Vol] 35.1 g/dL Normal 32-36 [facility] Comment on above: Performed By: #### L 500.4050, L3100.7870, L501.2400, L501.4021, L501.2450, L100.0100 #### [facility] [address] [place], [address] MCV (RBC) [Entitic vol] 87.4 fL Normal 80-94 [facility] Comment on above: Performed By: #### L 500.4050, L3100.7870, L501.2400, L501.4021, L501.2450, L100.0100 #### [facility] [address] [place], [address] Monocytes/100 WBC (Bld) 6.9 % Normal 0-10 [facility] Comment on above: Performed By: #### L 500.4050, L3100.7870, L501.2400, L501.4021, L501.2450, L100.0100 #### [facility] [address] [place], [address] Neutrophils/100 WBC (Bld) 74.4 % High 47-70 [facility] Comment on above: Performed By: #### L 500.4050, L3100.7870, L501.2400, L501.4021, L501.2450, L100.0100 #### [facility] [address] [place], [address] Nucleated RBC (Bld) [#/Vol] 0 10*3/uL Normal 0-5 [facility] Comment on above: Performed By: #### L 500.4050, L3100.7870, L501.2400, L501.4021, L501.2450, L100.0100 #### [facility] [address] [place], [address] Platelet mean volume (Bld) [Entitic vol] 9.1 fL Normal 6.2-12.0 [facility] Comment on above: Performed By: #### L 500.4050, L3100.7870, L501.2400, L501.4021, L501.2450, L100.0100 #### [facility] [address] [place], [address] Platelets (Bld) [#/Vol] 227 10*3/uL Normal 150-450 [facility] Comment on above: Performed By: #### L 500.4050, L3100.7870, L501.2400, L501.4021, L501.2450, L100.0100 #### [facility] [address] [place], [address] RBC (Bld) [#/Vol] 4.62 10*6/uL Normal 4.6-6.2 [facility] Comment on above: Performed By: #### L 500.4050, L3100.7870, L501.2400, L501.4021, L501.2450, L100.0100 #### [facility] [address] [place], [address] RDW SD 37.1 fl Normal 35.1-43.9 [facility] Comment on above: Performed By: #### L 500.4050, L3100.7870, L501.2400, L501.4021, L501.2450, L100.0100 #### [facility] [address] [place], [address] WBC (Bld) [#/Vol] 5.4 10*3/uL Normal 4.4-11.0 [facility] Comment on above: Performed By: #### L 500.4050, L3100.7870, L501.2400, L501.4021, L501.2450, L100.0100 #### [facility] [address] [place], [address] Carbon dioxide, total [Moles /volume] in Central venous bloodOrdered By: [facility] Sarita Brady on 04-11-2025 CO2 [Moles/Vol] 24.8 mmol/L 21.0-32.0 [facility] Chloride assayOrdered By: [facility] Sarita Brady on 04-11-2025 Chloride [Moles/Vol] 100 mmol/L 98-108 [facility] Comprehensive Metabolic Prof ilon 04-11-2025 Albumin [Mass/Vol] 4.3 g/dL Normal 3.5-5.0 [facility] Comment on above: Performed By: #### L 500.4050, L3100.7870, L501.2400, L501.4021, L501.2450, L100.0100 #### [facility] [address] [place], [address] Albumin/Globulin [Mass ratio] 1.4 {ratio} Normal 0.9-2.4 [facility] Comment on above: Performed By: #### L 500.4050, L3100.7870, L501.2400, L501.4021, L501.2450, L100.0100 #### [facility] [address] [place], [address] ALK PHOS 74 U/L Normal 40-129 [facility] Comment on above: Performed By: #### L 500.4050, L3100.7870, L501.2400, L501.4021, L501.2450, L100.0100 #### [facility] [address] [place], [address] ALT [Catalytic activity/Vol] 30 U/L Normal <=46 [facility] Comment on above: Performed By: #### L 500.4050, L3100.7870, L501.2400, L501.4021, L501.2450, L100.0100 #### [facility] [address] [place], [address] AST [Catalytic activity/Vol] 28 U/L Normal <=37 [facility] Comment on above: Performed By: #### L 500.4050, L3100.7870, L501.2400, L501.4021, L501.2450, L100.0100 #### [facility] [address] [place], [address] Bilirubin [Mass/Vol] 0.75 mg/dL Normal 0.00-1.30 [facility] Comment on above: Performed By: #### L 500.4050, L3100.7870, L501.2400, L501.4021, L501.2450, L100.0100 #### [facility] [address] [place], [address] BUN/CRE 15.0 RATIO Normal 10-20 [facility] Comment on above: Performed By: #### L 500.4050, L3100.7870, L501.2400, L501.4021, L501.2450, L100.0100 #### [facility] [address] [place], [address] Calcium [Mass/Vol] 9.6 mg/dL Normal 7.6-11.0 [facility] Comment on above: Performed By: #### L 500.4050, L3100.7870, L501.2400, L501.4021, L501.2450, L100.0100 #### [facility] [address] [place], [address] Chloride [Moles/Vol] 100 mmol/L Normal 98-108 [facility] Comment on above: Performed By: #### L 500.4050, L3100.7870, L501.2400, L501.4021, L501.2450, L100.0100 #### [facility] [address] [place], [address] CO2 [Moles/Vol] 24.8 mmol/L Normal 21.0-32.0 [facility] Comment on above: Performed By: #### L 500.4050, L3100.7870, L501.2400, L501.4021, L501.2450, L100.0100 #### [facility] [address] [place], [address] Creatinine [Mass/Vol] 1.12 mg/dL Normal 0.70-1.20 [facility] Comment on above: Performed By: #### L 500.4050, L3100.7870, L501.2400, L501.4021, L501.2450, L100.0100 #### [facility] [address] [place], [address] GAP 11 Normal 5-15 [facility] Comment on above: Performed By: #### L 500.4050, L3100.7870, L501.2400, L501.4021, L501.2450, L100.0100 #### [facility] [address] [place], [address] GFR/1.73 sq M.predicted among non-blacks MDRD (S/P/Bld) [Vol rate/Area] 88 mL/min/{1.73_m2} Normal >60 [facility] Comment on above: Result Comment: mL/m in/1.73m2 CKD-EPI Creatinine Equation (2020) Performed By: #### L 500.4050, L3100.7870, L501.2400, L501.4021, L501.2450, L100.0100 #### [facility] [address] [place], [address] Globulin (S) [Mass/Vol] 3.1 g/dL Normal 2.2-4.2 [facility] Comment on above: Performed By: #### L 500.4050, L3100.7870, L501.2400, L501.4021, L501.2450, L100.0100 #### [facility] [address] [place], [address] Glucose [Mass/Vol] 84 mg/dL Normal 70-99 [facility] Comment on above: Performed By: #### L 500.4050, L3100.7870, L501.2400, L501.4021, L501.2450, L100.0100 #### [facility] [address] [place], [address] Potassium [Moles/Vol] 4.5 mmol/L Normal 3.3-5.1 [facility] Comment on above: Performed By: #### L 500.4050, L3100.7870, L501.2400, L501.4021, L501.2450, L100.0100 #### [facility] [address] [place], [address] Sodium [Moles/Vol] 136 mmol/L Normal 133-145 [facility] Comment on above: Performed By: #### L 500.4050, L3100.7870, L501.2400, L501.4021, L501.2450, L100.0100 #### [facility] [address] [place], [address] T PROT 7.3 g/dL Normal 5.9-8.4 [facility] Comment on above: Performed By: #### L 500.4050, L3100.7870, L501.2400, L501.4021, L501.2450, L100.0100 #### [facility] [address] [place], [address] Urea nitrogen [Mass/Vol] 17 mg/dL Normal 4-19 [facility] Comment on above: Performed By: #### L 500.4050, L3100.7870, L501.2400, L501.4021, L501.2450, L100.0100 #### [facility] [address] [place], [address] Eosinophil percentageOrdered By: [facility] Sarita Abreu on 04-11-2025 Eosinophils/100 WBC (Bld) 0.2 % 0-5 [facility] Erythrocyte distribution wid th ratioOrdered By: [facility] Sarita Abreu on 04-11-2025 Erythrocyte distribution width (RBC) [Ratio] 11.6 % 11.6-14.6 [facility] Erythrocyte distribution wid th standard deviationOrdered By: [facility] Sarita Abreu on 04-11-2025 Erythrocyte distribution width (RBC) [Ratio] 37.1 fl 35.1-43.9 [facility] Glomerular filtration rate ( GFR) estimation/1.73 sq m using serum, plasma, or whole bOrdered By: [facility] Sarita Abreu on 04-11-2025 GFR/1.73 sq M.predicted among non-blacks MDRD (S/P/Bld) [Vol rate/Area] 88 mL/min/{1.73_m2} >60 [facility] Comment on above: mL/min/1.73m2 CKD-EP I Creatinine Equation (2020) Hematocrit Auto (Bld) [Volum e fraction]Ordered By: [facility] Sarita Abreu on 04-11-2025 Hematocrit (Bld) [Volume fraction] 40.4 % 40-54 [facility] Hemoglobin measurementOrdere d By: [facility] Sarita Abreu on 04-11-2025 Hemoglobin (Bld) [Mass/Vol] 14.2 g/dL 13.0-16.5 [facility] Immature granulocytes/100 WB C Auto (Bld)Ordered By: [facility] Sarita Abreu on 04-11-2025 Immature granulocytes/100 WBC (Bld) 0.200 % 0.0-0.9 [facility] Comment on above: IG% - Immature Granu locytes (promyelocytes, myelocytes and metamyelocytes) > 1% indicates that a LEFT SHIFT is Present. Laboratory - Chemistry and C hemistry - challengeOrdered By: [facility] Sarita Abreu on 04-11-2025 AST [Catalytic activity/Vol] 28 U/L <38 [facility] MCV (mean corpuscular volume ) determinationOrdered By: [facility] Sarita Abreu on 04-11-2025 MCV (RBC) [Entitic vol] 87.4 fL 80-94 [facility] Mean corpuscular hemoglobin (MCH) determinationOrdered By: [facility] Sarita Abreu on 04-11-2025 MCH (RBC) [Entitic mass] 30.7 pg 27.0-32.0 [facility] Mean corpuscular hemoglobin concentration (MCHC) determinationOrdered By: [facility] Sarita Abreu on 04-11-2025 MCHC (RBC) [Mass/Vol] 35.1 g/dL 32-36 [facility] Mean platelet volume determi nationOrdered By: [facility] Sarita Abreu on 04-11-2025 Platelet mean volume (Bld) [Entitic vol] 9.1 fL 6.2-12.0 [facility] Monocyte percentageOrdered B y: [facility] on 04-11-2025 Monocytes/100 WBC (Bld) 6.9 % 0-10 [facility] Monoteston 04-11-2025 Monocytes (Bld) [#/Vol] Negative Normal Negative [facility] Comment on above: Performed By: #### L 500.4050, L3100.7870, L501.2400, L501.4021, L501.2450, L100.0100 #### [facility] [address] [place], [address] Neutrophil percentageOrdered By: [facility] Abre[facility] on 04-11-2025 Neutrophils/100 WBC (Bld) 74.4 % High 47-70 [facility] No Panel InformationOrdered By: [facility] on 04-11-2025 Lyme Disease IgG Ab 30 kDa Band Absent . [facility] Lyme Disease IgG Ab 93 kDa Band Absent . [facility] Lyme Disease IgG [place] Interp Negative Negative [facility] Lyme Disease IgM Ab (Western Blot) Negative Negative [facility] Comment on above: Please Note: Lyme im munoblot alone is not recommended forthe diagnosis of Lyme disease. Current guidelines recommendthe use of a two-tiered approach to Lyme serology testingto improve the sensitivity and specificity of testing.[facility] offers test code 822260 Lyme Disease Serology withReflex to aid in the diagnosis of Lyme Disease. Lyme Disease Western Blot Comments Comment . [facility] Comment on above: Per CDC criteria, th e Lyme IgG Immunoblot is interpreted aspositive if IgG-class antibodies are detected to 5 or moreB. burgdorferi proteins, and the Lyme IgM Immunoblot isinterpreted as positive if IgM-class antibodies aredetected to 2 or more B. burgdorferi proteins. Immunoblotpatterns not meeting these criteria should not beinterpreted as positive. Epitopes from certain B.burgdorferi proteins (e.g., p41) are conserved across otherbacteria, which may lead to the detection of IgM-and/or IgGclass antibodies on the Lyme disease immunoblots inpatients without Lyme disease. Immunoblot should only beordered on specimens that are positive or equivocal by anA-licensed Lyme disease antibody screening test (e.g.,EIA). Results of the Lyme IgM immunoblot should not beconsidered in patients with 30 or more days of symptoms.Performed at: [facility] [address] [id number] Director: Bruna Barton MD, Phone: [phone] Nucleated red blood cell per centageOrdered By: [facility] Sarita Abreu on 04-11-2025 Nucleated RBC/100 WBC (Bld) [Ratio] 0 % 0-5 [facility] Platelet countOrdered By: CARLENE Abreu on 04-11-2025 Platelets (Bld) [#/Vol] 227 10*3/uL 150-450 [facility] Potassium measurement (mass/ volume)Ordered By: MONE Abreu on 04-11-2025 Potassium (Unsp spec) [Mass/Vol] 4.5 mmol/L 3.3-5.1 [facility] RBC Auto (Bld) [#/Vol]Ordere d By: Mac Abreu on 04-11-2025 RBC (Bld) [#/Vol] 4.62 10*6/uL 4.6-6.2 [facility] Serum creatinine measurement (mass/volume)Ordered By: MONE Abreu on 04-11-2025 Creatinine [Mass/Vol] 1.12 mg/dL 0.70-1.20 [facility] Serum globulin measurementOr dered By: [facility] Sarita Abreu on 04-11-2025 Globulin (S) [Mass/Vol] 3.1 g/dL 2.2-4.2 [facility] Serum glucose measurement (m ass/volume)Ordered By: [facility] Sarita Abreu on 04-11-2025 Glucose [Mass/Vol] 84 mg/dL 70-99 [facility] Serum heterophile antibody d etectionOrdered By: [facility] Sarita Abreu on 04-11-2025 Heterophile Ab Ql (S) Negative Negative [facility] Serum or plasma alanine potter otransferase (ALT) measurementOrdered By: [facility] A[facility] on 04-11-2025 ALT [Catalytic activity/Vol] 30 U/L <47 [facility] Serum or plasma albumin curt urement (mass/volume)Ordered By: [facility] Sarita Abreu on 04-11-2025 Albumin [Mass/Vol] 4.3 g/dL 3.5-5.0 [facility] Serum or plasma albumin/glob ulin mass ratioOrdered By: [facility] HospitalSaritawendy Abreu on 04-11-2025 Albumin/Globulin [Mass ratio] 1.4 {ratio} 0.9-2.4 [facility] Serum or plasma alkaline jj sphatase measurementOrdered By: [facility] Sarita Abreu on 04-11-2025 ALP [Catalytic activity/Vol] 74 U/L 40-129 [facility] Serum or plasma calcium curt urement (mass/volume)Ordered By: [facility] Sarita Abreu on 04-11-2025 Calcium [Mass/Vol] 9.6 mg/dL 7.6-11.0 [facility] Serum or plasma urea nitroge n measurement (mass/volume)Ordered By: [facility] Sarita Abreu on 04-11-2025 Urea nitrogen [Mass/Vol] 17 mg/dL 4-19 [facility] Sodium levelOrdered By: [facility] Sarita Abreu on 04-11-2025 Sodium [Moles/Vol] 136 mmol/L 133-145 [facility] Total proteinOrdered By: [facility] Sarita Abreu on 04-11-2025 Protein [Mass/Vol] 7.3 g/dL 5.9-8.4 [facility] White blood cell (WBC) count Ordered By: [facility] Sarita Abreu on 04-11-2025 WBC (Bld) [#/Vol] 5.4 10*3/uL 4.4-11.0 [facility] HIV 1 and HIV-2 antibody ass ay with HIV-1 p24 antigen detectionOrdered By: Savita Arthur on 01-12-2024 HIV 1+2 Ab+HIV1 p24 Ag IA Ql Non-Reactive Nonreactive [facility] No Panel InformationOrdered By: Savita Arthur on 01-12-2024 Hepatitis B Surface Antigen Non-Reactive Nonreactive [facility] Hepatitis C Antibody Non-Reactive Nonreactive [facility] Comment on above: Non Reactive: < 0.8 Equivocal: >/= 0.8 to < 1.0 Reactive: >/= 1.0The CDC recommends that a reactive/equivocal HCV antibody result be followed up by the HCV Nucleic Acid Amplificationtest (220797) Serum Treponema species anti body detectionOrdered By: Savita Arthur on 01-12-2024 Treponema sp Ab Ql (S) Non-Reactive [facility] HIV 1 and HIV-2 antibody ass ay with HIV-1 p24 antigen detectionOrdered By: Dr. Arthur on 12-28-2022 HIV 1+2 Ab+HIV1 p24 Ag IA Ql Non-Reactive Nonreactive [facility] No Panel InformationOrdered By: Dr. Arthur on 12-28-2022 Hepatitis B Surface Antigen Non-Reactive Nonreactive [facility] Hepatitis C Antibody Non-Reactive Nonreactive [facility] Comment on above: Non Reactive: < 0.8 Equivocal: >/= 0.8 to < 1.0 Reactive: >/= 1.0The CDC recommends that a reactive/equivocal HCV antibody result be followed up by the HCV Nucleic Acid Amplificationtest (771103) Serum Treponema species anti body detectionOrdered By: Dr. Arthur on 12-28-2022 Treponema sp Ab Ql (S) Non-Reactive [facility] Absolute lymphocyte counton 07-24-2022 Lymphocytes Auto (Unsp spec) [#/Vol] 2.16 10*3/uL 0.83-4.51 [facility] Work Phone: Basophil percentageon 2021 Basophils/100 WBC (Bld) 0.7 % 0-1 [facility] Work Phone: Bilirubin [Mass/Vol] 0.70 mg/dL 0.20-1.00 [facility] Work Phone: Comment on above: For patients on eltr ombopag therapy, use of Dimension [place] TBIL is not recommended. Chloride [Moles/Vol] 105 mmol/L 98-107 [facility] Work Phone: Cholesterol [Mass/Vol] 148 mg/dL <200 [facility] Work Phone: Comment on above: <200 mg/dL Desirable 200-240 mg/dL Borderline >240 mg/dL High Risk Eosinophils/100 WBC (Bld) 1.0 % 0-5 [facility] Work Phone: Glucose [Mass/Vol] 91 mg/dL 74-106 [facility] Work Phone: Neutrophils (Bld) [#/Vol] 4.2 10*3/uL 2.0-7.7 [facility] Work Phone: Neutrophils/100 WBC (Bld) 61.1 % 47-70 [facility] Work Phone: Potassium [Moles/Vol] 3.8 mmol/L 3.5-5.1 [facility] Work Phone: Protein [Mass/Vol] 7.5 g/dL 6.4-8.2 [facility] Work Phone: Sodium [Moles/Vol] 139 mmol/L 136-145 [facility] Work Phone: Testosterone [Mass/Vol] 417.71 ng/dL [facility] Work Phone: Comment on above: CENTRAL 90% REFERENC E RANGES MALE AGE <50 197.44 - 669.58 ng/dL MALE AGE > or = 50 187.72 - 684.19 ng/dL FEMALE AGE <50 8.38 - 35.01 ng/dL FEMALE AGE > or = 50 <7.00 - 35.92 ng/dL Effective as of 06/24/21 Triglyceride [Mass/Vol] 161 mg/dL <199 [facility] Work Phone: Comment on above: The drugs N-Acetylcy steine and Metamizole may falsely depress this assay.Serum Triglycerides Reference Interval Normal <150 mg/dL Borderline high 150 - 199 mg/dL High 200 - 499 mg/dL Very High > or = 500 mg/dL WBC (Bld) [#/Vol] 6.9 10*3/uL 4.4-11.0 [facility] Work Phone: Blood erythrocytes count (nu mber/volume)on 07-24-2022 RBC (Bld) [#/Vol] 4.84 10*6/uL 4.6-6.2 [facility] Work [facility]: Blood hemoglobin measurement (mass/volume)on 07-24-2022 Hemoglobin (Bld) [Mass/Vol] 14.5 g/dL 13.0-16.5 [facility] Work Phone: Blood lymphocytes/100 leukoc yteson 07-24-2022 Lymphocytes/100 WBC (Bld) 31.4 % 19-41 [facility] Work Phone: Blood monocytes/100 leukocyt eson 07-24-2022 Monocytes/100 WBC (Bld) 5.4 % 0-10 [facility] Work Phone: Blood platelet mean volumeon 07-24-2022 Platelet mean volume (Bld) [Entitic vol] 10.0 fL 6.2-12.0 [facility] Work Phone: Determination of erythrocyte mean corpuscular volume (MCV)on 07-24-2022 MCV (RBC) [Entitic vol] 90.1 fL 80-94 [facility] Work Phone: Hematocrit Auto (Bld) [Volum e fraction]on 07-24-2022 Hematocrit (Bld) [Volume fraction] 43.6 % 40-54 [facility] Work Phone: Laboratory - Chemistry and C hemistry - challengeon 07-24-2022 ALP [Catalytic activity/Vol] 62 U/L 45-117 [facility] Work Phone: ALT [Catalytic activity/Vol] 35 U/L 16-61 [facility] Work Phone: CO2 [Moles/Vol] 27.0 mmol/L 21.0-32.0 [facility] Work Phone: Globulin (S) [Mass/Vol] 3.6 g/dL 2.2-4.2 [facility] Work Phone: Urea nitrogen/Creatinine [Mass ratio] 14.9 mg/mg 10-20 [facility] Work Phone: Laboratory - Hematology and Cell countson 07-24-2022 Erythrocyte distribution width (RBC) [Entitic vol] 39.6 fL 35.1-43.9 [facility] Work Phone: Erythrocyte distribution width (RBC) [Ratio] 12.2 % 11.6-14.6 [facility] Work Phone: Immature granulocytes/100 WBC (Bld) 0.400 % 0.0-0.9 [facility] Work Phone: Comment on above: IG% - Immature Granu locytes (promyelocytes, myelocytes and metamyelocytes) > 1% indicates that a LEFT SHIFT is Present. MCH (RBC) [Entitic mass] 30.0 pg 27.0-32.0 [facility] Work Phone: Nucleated RBC/100 WBC (Bld) [Ratio] 0 % 0-5 [facility] Work Phone: MCHC Auto (RBC) [Mass/Vol]on 07-24-2022 MCHC (RBC) [Mass/Vol] 33.3 g/dL 32-36 [facility] Work Phone: No Panel Informationon 07-24 Estimated GFR (MDRD) Amer 111 mL/min >60 [facility] Work Phone: Comment on above: GFR Calc Estimated GFR (MDRD) Non-Af Amer 91 mL/min >60 [facility] Work Phone: Comment on above: Non- GFR Calc Thyroid Stimulating Hormone (TSH) 1.05 uIU/mL 0.358-3.74 [facility] Work Phone: Vitamin D 25-Hydroxy 33.6 ng/mL [facility] Work Phone: Comment on above: Vitamin D 25(OH) Sta tus Range Deficiency <20 ng/mL (50nmol/L) Insufficiency 20 - 30 ng/mL (50 - 75 nmol/L) Sufficiency 30 - 100 ng/mL (75 - 250 nmol/L) Toxicity >100 ng/mL (>250 nmol/L) Platelets bldon 07-24-2022 Platelets (Bld) [#/Vol] 273 10*3/uL 150-450 [facility] Work Phone: Serum or plasma albumin curt urement (mass/volume)on 07-24-2022 Albumin [Mass/Vol] 3.9 g/dL 3.2-5.0 [facility] Work Phone: Serum or plasma albumin/glob ulin mass ratioon 07-24-2022 Albumin/Globulin [Mass ratio] 1.1 {ratio} 0.9-2.4 [facility] Work Phone: Serum or plasma calcium curt urement (mass/volume)on 07-24-2022 Calcium [Mass/Vol] 9.3 mg/dL 8.5-10.1 [facility] Work Phone: Serum or plasma cholesterol in HDL measurement (mass/volume)on 07-24-2022 Cholesterol in HDL [Mass/Vol] 28 mg/dL >40 [facility] Work Phone: Comment on above: The drugs N-Acetylcy steine and Metamizole may falsely depress this assay. Reference Range HDL <40 mg/dL Low HDL Cholesterol HDL >or= 60 mg/dL High HDL Cholesterol Serum or plasma cholesterol in VLDL measurement (mass/volume)on 07-24-2022 Cholesterol in VLDL [Mass/Vol] 32 mg/dL 5-40 [facility] Work Phone: Serum or plasma creatinine m easurement (mass/volume)on 07-24-2022 Creatinine [Mass/Vol] 1.01 mg/dL 0.70-1.30 [facility] Work Phone: Comment on above: The validity of the calculated GFR & GFRAA in patients over 70 years has not been determined. Clinical correlation is essential. Serum or plasma low density lipoprotein (LDL) cholesterol measurement (mass/volume)on 07-24-2022 Cholesterol in LDL [Mass/Vol] 88 mg/dL 0-130 [facility] Work Phone: Serum or plasma urea nitroge n measurement (mass/volume)on 07-24-2022 Urea nitrogen [Mass/Vol] 15 mg/dL 7-18 [facility] Work Phone: Thin prep Papanicolaou smear with manual screeningon 07-24-2022 Thin prep Papanicolaou smear with manual screening 11 U/L 15-37 [facility] Work Phone: Thin prep Papanicolaou smear with manual screening 7 5-15 [facility] Work Phone: OBSOLETEon 01-05-2018 OBSOLETE Refill (AGINTMLW) MARITZA RODRIGUEZ ([id number]) 1990 MDate Time Provider Department01/05/18 LURDES LEPE ([facility]) AGINTMLW During your visit today, we recorded the following information about you:Cheryl Zuniga CMA 01/06/2018 12:05 PM SignedCalled pt left VM that he is due for OV 1 month filled of medicationPharmacy calls in requesting the following refill(s):Pending Prescriptions Disp Refills LISINOPRIL 10 MG-HYDROCHLOROTHIAZI DE 12.5 MG TABLET 30 tablet 0 Sig: TAKE 1 TABLET BY MOUTH EVERY DAY MARIBEL: YesAllergies As of Date: 01/05/2018 Noted Allergy ReactionPINE TREES (TREES) 02/19/2011 2 - RashDate Reviewed: 01/20/2017Reviewed by: Lurdes Delarosa (Brittney) BRITTNEY Lepe - Fully AssessedReason for Visit: Refill Request [94]Order(s):lisinop ril-hydrochlorothiaz felipe (PRINZIDE,ZESTORETIC ) 10-12.5 mg per tabletTAKE 1 TABLET BY MOUTH EVERY DAYDisp: 90 tabletRfl: 0Prescriptions as of 01/05/2018 Sig: LISINOPRIL 10 MG-HYDROCHLOROT* TAKE 1 TABLET BY MOUTH EVERY * NALTREXONE 8 MG-BUPROPION 90 * One tablet once daily in the * METOPROLOL SUCCINATE ER 25 MG* Take 0.5 tablets by mouth onc* Patient taking differently: Take 25 mg by mouth once aditya*Problem List As Of Date 01/05/2018 Noted Resolved 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 Disc: Reason for discontinue is not on file. Status:Closed by LURDES LEPE CNP on 01/06/18 [facility] Office Visit: Spine Visit- N EWon 09-27-2017 Dietary management education, guidance, and counseling (procedure) yes Invalid Interpretation Code [employer] Work Phone: [phone] Documentation of current medications (procedure) Done Invalid Interpretation Code [employer] Work Phone: [phone] Tobacco use CPHS Never smoker Invalid Interpretation Code [employer] Phone: [phone] Office Visiton 01-19-2017 Documentation of current medications (procedure) Done Invalid Interpretation Code [employer] Work Phone: [phone] Replaced Document: Kraig Venegas CG Observationson 01-19-2017 EKG QRS axis 43 deg Invalid Interpretation Code [employer] Phone: [phone] electrocardiogram interpretation Sinus Rhythm -RSR(V1) -probably normal for age. PROBABLY NORMAL FOR AGE Invalid Interpretation Code [employer] Phone: [phone] GE use only - for Link[employer]ic import when terms are not otherwise specified 406 ms Invalid Interpretation Code [employer] Phone: [phone] Heart rate 91 /min Invalid Interpretation Code [employer] Phone: [phone] Interpretation Sinus Rhythm -RSR(V1) -probably normal for age. PROBABLY NORMAL FOR AGE Invalid Interpretation Code [employer] Work Phone: [phone] P Palmer 52 deg Invalid Interpretation Code [employer] Phone: [phone] P wave axis, electrocardiogram 52 deg Invalid Interpretation Code [employer] Phone: [phone] [place] Interval 154 ms Invalid Interpretation Code [employer] Work Phone: [phone] [place] interval, electrocardiogram 154 ms Invalid Interpretation Code [facility] [employer] Phone: [phone] QRS axis, electrocardiogram 43 deg Invalid Interpretation Code [facility] Phone: [phone] QRS Duration 121 ms Invalid Interpretation Code [employer] Work Phone: [phone] QRS duration, electrocardiogram 121 ms Invalid Interpretation Code [employer] Phone: [phone] QT Interval new path ms Invalid Interpretation Code [employer] Work Phone: [phone] QT interval, electrocardiogram new path ms Invalid Interpretation Code [employer] Phone: [phone] QTc Oquendo 406 ms Invalid Interpretation Code [facility] Work Phone: [phone] T Palmer 37 deg Invalid Interpretation Code [facility] Work Phone: [phone] T wave axis, electrocardiogram 37 deg Invalid Interpretation Code [facility] Work Phone: [phone] 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-19-2016 Left ventricular Ejection fraction 60 % Invalid Interpretation Code [facility] Work Phone: [phone] Lab Report: BMPon 08-09-2013 Calcium [Mass/Vol] 9.6 mg/dL Normal 8.5-10.1 [facility] Work Phone: [phone] Chloride [Moles/Vol] 103 mmol/L Normal 98-[address] [facility] Work Phone: [phone] Creatinine [Mass/Vol] 1.1 mg/dL Normal 0.8-1.3 [facility] Work Phone: [phone] Glucose [Mass/Vol] 73 mg/dL Normal 70-110 [facility] Work Phone: [phone] Potassium [Moles/Vol] 3.6 mmol/L Normal 3.5-5.1 [facility] Work Phone: [phone] Sodium [Moles/Vol] 140 mmol/L Normal 136-145 [facility] Work Phone: [phone] Urea nitrogen [Mass/Vol] 16 mg/dL Normal 7-18 [facility] Work Phone: [phone] Lab Report: CBCDon 3 Erythrocytes (RBC) 5.08 10*6/uL Normal 4.6-6.2 [facility] Work Phone: [phone] Hematocrit (Bld) [Volume fraction] 43.8 % Normal 40-54 [facility] Work Phone: [phone] Hematocrit (HCT) 43.8 % Normal 40-54 [facility] Work Phone: [phone] Hemoglobin (Bld) [Mass/Vol] 15.5 g/dL Normal 13.0-16.5 [facility] Work Phone: [phone] Platelets 208 10*3/mm3 Normal 150-450 [facility] Work Phone: [phone] Platelets (Bld) [#/Vol] 208 10*3/uL Normal 150-450 [facility] Work Phone: [phone] RBC (Bld) [#/Vol] 5.08 10*6/uL Normal 4.6-6.2 [facility] Work Phone: [phone] WBC (Bld) [#/Vol] 8.2 10*3/uL Normal 4.4-11.0 [facility] Work Phone: [phone] WBC (Leukocytes) 8.2 10*3/uL Normal 4.4-11.0 [facility] Work Phone: [phone] Lab Report: LIPIDon 08-09-20 13 Cholesterol [Mass/Vol] 117 mg/dL Normal 200 [facility] Work Phone: [phone] Cholesterol in HDL [Mass/Vol] 22 mg/dL Low [facility] Work Phone: [phone] Cholesterol in LDL [Mass/Vol] 57 mg/dL Normal 0-130 [facility] Work Phone: [phone] Lipoprotein.pre-beta [Mass/Vol] 38 mg/dL Normal 5-40 [facility] Work Phone: [phone] Triglyceride [Mass/Vol] 190 mg/dL Normal [facility] Work Phone: [phone] Lab Report: LIVERon 08-09-20 13 Albumin [Mass/Vol] 4.1 g/dL Normal 3.4-5.0 [facility] Work Phone: [phone] Alkaline phosphatase (ALP) 93 U/L Normal 50-136 [facility] Work Phone: [phone] ALP (Bld) [Catalytic activity/Vol] 93 U/L Normal 50-136 [facility] Work Phone: [phone] ALT [Catalytic activity/Vol] 42 U/L Normal 12-78 [facility] Work Phone: [phone] AST [Catalytic activity/Vol] 18 U/L Normal 15-37 [facility] Work Phone: [phone] Bilirubin [Mass/Vol] 1.10 mg/dL High 0.00-1.[address] [facility] Work Phone: [phone] Bilirubin.direct [Mass/Vol] 0.21 mg/dL Normal 0.00-0.30 [facility] Work Phone: [phone] Lab Report: TSHon 08-09-2013 Thyroid stimulating hormone (TSH) 1.96 u[iU]/mL Normal 0.358-3.74 [facility] Work Phone: [phone] TSH Qn 1.96 m[IU]/L Normal 0.358-3.74 [facility] Work Phone: [phone] Office Visiton 01-31-2013 Tobacco use status [facility] never smoker Invalid Interpretation Code [facility] Work Phone: [phone] Replaced Document: [employer] [facility] CG Observationson 11-25-2012 Pulse (Heart Rate) 395 ms Invalid Interpretation Code [facility] Work Phone: [phone] QT interval/QT interval (corrected for heart rate), electrocardiogram 395 ms Invalid Interpretation Code [facility] Work Phone: [phone] Vital Signs Date Time Vital Sign Value Performing Clinician Facility 01-01-2023 [id number] Body height 185.[address] Lenny Ramos Work Phone: [facility] 01-01-2023 14:11-0500 Body mass index (BMI) [Ratio] 37.5 kg/m2 Dr. Lenny Ramos Work Phone: [facility] 01-01-2023 14:11-0500 Body temperature 97.2 [degF] Dr. Lenny Ramos Work Phone: [facility] 01-01-2023 14:11-0500 Body weight 129.[address] Lenny Ramos Work Phone: [facility] 01-01-2023 14:11-0500 Diastolic blood pressure 70 mm[Hg] Dr. Lenny Ramos Work Phone: [facility] 01-01-2023 14:11-0500 Heart rate 83 /min Dr. Lenny Ramos Work Phone: [facility] 01-01-2023 14:11-0500 Respiratory rate 16 /min Dr. Lenny Ramos Work Phone: [facility] 01-01-2023 14:11-0500 SaO2% (BldA) [Mass fraction] 97 % Dr. Lenny Ramos Work Phone: [facility] 01-01-2023 14:11-0500 Systolic blood pressure 140 mm[Hg] Dr. Lenny Ramos Work Phone: [facility] 09-21-2022 11:55-0400 Body height 185.[address] Lenny Ramos Work Phone: [facility] Work Phone: 09-21-2022 11:55-0400 Body mass index (BMI) [Ratio] 39.4 kg/m2 Dr. Lenny Ramos Work Phone: [facility] 09-21-2022 11:55-0400 Body temperature 98.8 [degF] Dr. Lenny Ramos Work Phone: [facility] 09-21-2022 11:55-0400 Body weight 135.[address] Lenny Ramos Work Phone: [facility] 09-21-2022 11:55-0400 Diastolic blood pressure 72 mm[Hg] Dr. Lenny Ramos Work Phone: [facility] 09-21-2022 11:55-0400 Heart rate 75 /min Dr. Lenny Ramos Work Phone: [facility] 09-21-2022 11:55-0400 Respiratory rate 14 /min Dr. Lenny Ramos Work Phone: [facility] 09-21-2022 11:55-0400 SaO2% (BldA) [Mass fraction] 100 % Dr. Lenny Ramos Work Phone: [facility] 09-21-2022 11:55-0400 Systolic blood pressure 132 mm[Hg] Dr. Lenny Ramos Work Phone: [facility] 07-24-2022 11:44-0400 Body height 185.[address] Lenny Ramos Work Phone: [facility] Work Phone: 07-24-2022 11:44-0400 Body mass index (BMI) [Ratio] 41.9 kg/m2 Dr. Lenny Ramos Work Phone: [facility] Work Phone: 07-24-2022 11:44-0400 Body weight 144.[address] Lenny Ramos Work Phone: [facility] Work Phone: 07-24-2022 11:44-0400 Diastolic blood pressure 68 mm[Hg] Dr. Lenny Ramos Work Phone: [facility] Work Phone: 07-24-2022 11:44-0400 Systolic blood pressure 130 mm[Hg] Dr. Lenny Ramos Work Phone: [facility] Work Phone: 05-01-2022 16:08-0400 Body temperature 98.1 [degF] Dr. Lenny Ramos Work Phone: [facility] Work Phone: 05-01-2022 16:08-0400 Diastolic blood pressure 74 mm[Hg] Dr. Lenny Ramos Work Phone: [facility] Work Phone: 05-01-2022 16:08-0400 Heart rate 78 /min Dr. Lenny Ramos Work Phone: [facility] Work Phone: 05-01-2022 16:08-0400 Respiratory rate 14 /min Dr. Lenny Ramos Work Phone: [facility] Work Phone: 05-01-2022 16:08-0400 SaO2% (BldA) [Mass fraction] 100 % Dr. Lenny Ramos Work Phone: [facility] Work Phone: 05-01-2022 16:08-0400 Systolic blood pressure 126 mm[Hg] Dr. Lenny Ramos Work Phone: [facility] Work Phone: 09-27-2017 14:13-0400 BMI (Body Mass Index) 41.53 kg/m2 [facility] Work Phone: 09-27-2017 14:13-0400 Body weight 145.15 kg Hao Barcenas MD [facility] Work Phone: 09-27-2017 14:13-0400 Pulse (Heart Rate) 82 /min [facility] Work Phone: 09-27-2017 14:13-0400 Respiratory Rate 19 /min [facility] Work Phone: 09-27-2017 14:13-0400 Weight 145.15 kg [facility] Work Phone: 01-19-2017 15:43-0500 Body mass index (BMI) [Ratio] 40.62 kg/m2 Carrie Fields PA-C Work Phone: [facility] Work Phone: 01-19-2017 15:43-0500 Body surface area Derived from formula 2.62 m2 Carrie Fields PA-C Work Phone: [facility] Work Phone: 01-19-2017 15:43-0500 Body weight 141.98 kg Carrie Fields PA-C Work Phone: [facility] Work Phone: 01-19-2017 15:43-0500 Diastolic blood pressure 70 mm[Hg] Carrie Fields PA-C Work Phone: [facility] Work Phone: 01-19-2017 15:43-0500 Heart rate 72 /min Carrie Fields PA-C Work Phone: [facility] Work Phone: 01-19-2017 15:43-0500 Respiratory rate 20 /min Carrie Fields PA-C Work Phone: [facility] Work Phone: 01-19-2017 15:43-0500 Systolic blood pressure 110 mm[Hg] Carrie Fields PA-C Work Phone: [facility] Work Phone: 01-19-2017 15:43-0500 Weight 141.98 [facility] Work Phone: 06-02-2016 11:50-0400 Body height 186.94 cm Carrie Fields PA-C Work Phone: [facility] Work Phone: 07-17-2010 08:00-0400 Body temperature 97.9 [degF] Carrie Fields PA-C Work Phone: [facility] Work Phone: Encounters Encounter Date Encounter Type Care Provider Facility Start: 09-11-2025 ambulatory Sarita Abreu [facility] Fa cility:[facility] Start: 08-21-2025 Encounter for genera l adult medical examination without [facility] Start: 08-08-2025 End: 08-08-2025 ambulatory Sarita BARRERAC Work Phone: -[facility] Start: 08-08-2025 End: 08-08-[address] Savita Arthur MD -[facility] Start: 08-08-2025 End: 08-08-2025 ambulatory Savita Arthur Facility:[facility] Start: 06-12-2025 End: 06-12-2025 ambulatory Sarita Abreu [employer]EL[facility] APPRENTICE-C Work Phone: -Laboratory [facility] Start: 06-12-2025 End: 06-12-2025 Patient encounter procedure [facility] Sarita Abreu WELDER APPRENTICE-C -Laboratory [facility] Start: 06-12-2025 End: 06-12-2025 ambulatory Sarita Brady [facility] Facility:[facility] Start: 04-11-2025 End: 04-11-2025 ambulatory Sarita Abreu WELDER APPRENTICE-C Work Phone: [facility] Work Phone: Start: 04-11-2025 End: 04-11-2025 Patient encounter procedure [facility] Sarita Abreu WELDER APPRENTICE-C -Laboratory [facility] Start: 04-11-2025 End: 04-11-2025 ambulatory Sarita Abreu [facility] Facility:[facility] Start: 01-12-2024 End: 01-12-2024 ambulatory [facility] Work Phone: Start: 01-12-2024 End: 01-12-2024 Patient encounter procedure [facility] Start: 01-01-2023 End: 01-01-[address] Lenny Ramos Work Phone: [facility] Start: 12-28-2022 End: 12-28-[address] Lenny Ramos Work Phone: [facility] Work Phone: Start: 12-28-2022 End: 12-28-[address] Lenny Ramos Work Phone: [facility] Start: 09-21-2022 End: 09-21-[address] Lenny Ramos Work Phone: [facility] Start: 07-24-2022 End: 07-24-[address] Lenny Ramos Work Phone: [facility] Start: 07-24-2022 End: 07-24-[address] Lenny Ramos Work Phone: [facility] Work Phone: Start: 07-24-2022 End: 07-24-[address] Lenny Ramos Work Phone: [facility], [facility] Start: 05-01-2022 End: 05-01-2022 Encounter for general adult medical examination without abnormal findings Dr. Lenny Ramos Work Phone: [facility] Start: 05-01-2022 End: 05-01-[address] Lenny Ramos Work Phone: [facility] Internal Medicine Procedures Date Procedure Procedure Detail Performing Clinician Start: 08-08-2025 Hepatitis C antibody measurement Sarita Abreu WELDER APPRENTICE-C Work Phone: Comment on above: Reactive: Presumptiv e evidence of antibodies to HCV. Follow CDC recommendations for supplemental testing.Non-Reactive: Antibodies to HCV were not detected; does not exclude the possibility of exposure to HCVReactive Results are presumptive evidence of antibodies to HCV. Follow CDC recommendations for supplemental testing.Order confirmation testing: HCV Quant by PCR testing - HCVPCR #[id number] Non Reactive: < 0.8 Equivocal: >/= 0.8 to < 1.0 Reactive: >/= 1.0The CDC requires that a reactive/equivocal HCV antibody result be sent out for confirmation. HCV Quant by PCR testing. Start: 08-08-2025 Serologic test for syphilis Sarita Abreu WELDER APPRENTICE-C Work Phone: Start: 04-11-2025 Lyme disease test Sloane Abreu WELDER APPRENTICE-C Work Phone: Start: 04-11-2025 Lyme immunoblot test Ion Abreu WELDER APPRENTICE-C Work Phone: Start: 09-27-2017 End: 09-27-2017 Dietary management education, guidance, and counseling Hao Barceans MD Start: 09-27-2017 End: 09-27-2017 Documentation of current medications Hao Barcenas MD Start: 09-27-2017 End: 09-27-2017 Chiropractic manipulative tx spinal 1-2 regions Roxanna Mccauley Dossi DC Work Phone: Start: 09-27-2017 End: 09-27-2017 Chiropractic manipulative tx spinal 1-2 regions Roxanna Garrick Dossi DC Work Phone: Start: 01-19-2017 End: 01-19-2017 Documentation of current medications Carrie Fields PA-C Work Phone: Start: 01-19-2017 End: 01-19-2017 CARLOS Barcenas MD [...] 08-07-2013 End: 08-09-2013 *CBC with Differential Carrie Fields PA-C Work Phone: Start: 08-07-2013 End: 08-09-2013 *Hepatic Function Panel Carrie Fields PA-C Work Phone: Start: 08-07-2013 End: 08-07-2013 RETAIL SALES VITAMIN CONSULTANT Carrie Fields PA-C Work Phone: Start: 08-07-2013 End: 08-07-2013 Follow Up Appt 6 months Carrie Fields PA-C Work Phone: Start: 08-07-2013 [...] PA-C Work Phone: Start: 08-07-2013 End: 08-07-2013 RETAIL SALES VITAMIN CONSULTANT Carrie Fields PA-C Work Phone: Start: 08-07-2013 End: 08-07-2013 Follow Up Appt 6 months Carrie Fields PA-C Work Phone: Start: 08-07-2013 [...] End: 11-30-2012 Ct pelvis w/contrast material Hao Barcenas MD Start: 11-25-2012 [...] Follow Up Appt 3 months [place] [facility] History of tonsillectomy History of tonsillectomy Dr. Lenny Ramos Work Phone: Plan of Treatment Date Care Activity Detail Author Start: 04-11-2025 Borrelia burgdorferi blot test [facility] Start: 01-18-2018 End: 01-18-2018 Appointment Appointment [facility] Work Phone: Start: 09-27-2017 End: 09-27-2017 Appointment Appointment [facility] Work Phone: Start: 09-27-2017 End: 09-27-2017 Follow up Appt 2x/week Follow up Appt 2x/week [facility] Work Phone: Start: 09-27-2017 End: 09-27-2017 Follow up Appt 2x/week Follow up Appt 2x/week [facility] Work Phone: Start: 06-16-2017 End: 06-16-2017 Trust Operations Assistant Trust Operations Assistant [facility] Nutrition Services, [address] [place], [address] [facility] Work Phone: Start: 06-16-2017 End: 06-16-2017 Nutrition therapy Trust Operations Assistant [facility] Nutrition Services, [address] [place], [address] [facility] Work Phone: Start: 01-19-2017 End: 01-19-2017 [facility] Work Phone: Start: 01-19-2017 End: 01-19-2017 Ecg routine ecg w/least 12 lds w/i&r EKG (In office) [facility] Work Phone: Start: 01-19-2017 End: 01-19-2017 Follow Up Appt 1 year Follow Up Appt 1 year [facility] Work Phone: Start: 01-19-2017 End: 01-19-2017 RETAIL SALES VITAMIN CONSULTANT RETAIL SALES VITAMIN CONSULTANT [facility] Work Phone: Start: 01-19-2017 End: 01-19-2017 Ecg routine ecg w/least 12 lds w/i&r EKG (In office) [facility] Work Phone: Start: 01-19-2017 End: 01-19-2017 Follow Up Appt 1 year Follow Up Appt 1 year [facility] Work Phone: Start: 10-20-2016 End: 10-20-2016 RETAIL SALES VITAMIN CONSULTANT RETAIL SALES VITAMIN CONSULTANT [facility] Work Phone: Start: 10-20-2016 End: 10-20-2016 Follow Up Appt 3 months Follow Up Appt 3 months [facility] Work Phone: Start: 10-20-2016 End: 10-20-2016 RETAIL SALES VITAMIN CONSULTANT RETAIL SALES VITAMIN CONSULTANT [facility] Work Phone: Start: 10-20-2016 End: 10-20-2016 Follow Up Appt 3 months Follow Up Appt 3 months [facility] Work Phone: Start: 06-02-2016 End: 01-19-2017 RETAIL SALES VITAMIN CONSULTANT RETAIL SALES VITAMIN CONSULTANT [facility] Work Phone: Start: 06-02-2016 End: 01-19-2017 Follow Up Appt 6 months Follow Up Appt 6 months [facility] Work Phone: Start: 06-02-2016 End: 01-19-2017 RETAIL SALES VITAMIN CONSULTANT RETAIL SALES VITAMIN CONSULTANT [facility] Work Phone: Start: 06-02-2016 End: 01-19-2017 Follow Up Appt 6 months Follow Up Appt 6 months [facility] Work Phone: Start: 07-30-2014 [...] Serum or Plasma *Lipid Profile CC PCP [facility] Work Phone: Start: 02-22-2014 End: 02-22-2014 Follow Up Appt 6 months Follow Up Appt 6 months [facility] Work Phone: Start: 02-22-2014 End: 02-22-2014 MMM MMM [facility] Work Phone: Start: 02-22-2014 End: 02-22-2014 Follow Up Appt 6 months Follow Up Appt 6 months [facility] Work Phone: Start: 02-22-2014 End: 02-22-2014 MMM MMM [facility] Work Phone: Start: 08-07-2013 End: 08-14-2013 *BMP *BMP [facility] Work Phone: Start: 08-07-2013 End: 08-09-2013 *CBC with Differential *CBC with Differential [facility] Work Phone: Start: 08-07-2013 End: 08-09-2013 *Hepatic Function Panel *Hepatic Function Panel [facility] Work Phone: Start: 08-07-2013 End: 08-07-2013 RETAIL SALES VITAMIN CONSULTANT RETAIL SALES VITAMIN CONSULTANT [facility] Work Phone: Start: 08-07-2013 End: 08-07-2013 Follow Up Appt 6 months Follow Up Appt 6 months [facility] Work Phone: Start: 08-07-2013 End: 08-14-2013 Lipid panel [AGGREGATE] *Lipid Profile CC PCP [facility] Work Phone: Start: 08-07-2013 End: 08-14-2013 Thyroid stimulating hormone (TSH) *TSH [facility] Work Phone: Start: 08-07-2013 End: 08-14-2013 Basic metabolic 2000 panel - Serum or Plasma *BMP [facility] Work Phone: Start: 08-07-2013 End: 08-09-2013 CBC W Auto Differential panel - Blood *CBC with Differential [facility] Work Phone: Start: 08-07-2013 End: 08-07-2013 RETAIL SALES VITAMIN CONSULTANT RETAIL SALES VITAMIN CONSULTANT [facility] Work Phone: Start: 08-07-2013 End: 08-07-2013 Follow Up Appt 6 months Follow Up Appt 6 months [facility] Work Phone: Start: 08-07-2013 End: 08-09-2013 Hepatic function 2000 panel - Serum or Plasma *Hepatic Function Panel [facility] Work Phone: Start: 08-07-2013 End: 08-14-2013 Lipid 1996 panel - Serum or Plasma *Lipid Profile CC PCP [facility] Work Phone: Start: 08-07-2013 End: 08-14-2013 Thyrotropin [Units/volume] in Serum or Plasma *TSH [facility] Work Phone: Start: 01-31-2013 End: 01-31-2013 Follow Up Appt 6 months Follow Up Appt 6 months [facility] Work Phone: Start: 01-31-2013 End: 01-31-2013 MMM MMM [facility] Work Phone: Start: 01-31-2013 End: 01-31-2013 Follow Up Appt 6 months Follow Up Appt 6 months [facility] Work Phone: Start: 01-31-2013 End: 01-31-2013 MMM MMM [facility] Work Phone: Start: 11-25-2012 End: 11-30-2012 *BMP *BMP [facility] Work Phone: Start: 11-25-2012 End: 11-25-2012 Ct abdomen w/contrast material CT Abdomen with Contrast [facility] Work Phone: Start: 11-25-2012 End: 11-25-2012 Ct pelvis w/contrast material CT Pelvis with Contrast [facility] Work Phone: Start: 11-25-2012 End: 07-25-2013 Ecg routine ecg w/least 12 lds w/i&r EKG (In office) [facility] Work Phone: Start: 11-25-2012 End: 11-25-2012 Echocardiography Echocardiogram (complete) [facility] Work Phone: Start: 11-25-2012 End: 07-25-2013 Follow Up Appt 3 months Follow Up Appt 3 months [facility] Work Phone: Start: 11-25-2012 End: 11-30-2012 Basic metabolic 2000 panel - Serum or Plasma *BMP [facility] Work Phone: Start: 11-25-2012 End: 11-25-2012 Ct abdomen w/contrast material CT Abdomen with Contrast [facility] Work Phone: Start: 11-25-2012 End: 11-25-2012 Ct pelvis w/contrast material CT Pelvis with Contrast [facility] Work Phone: Start: 11-25-2012 End: 07-25-2013 Ecg routine ecg w/least 12 lds w/i&r EKG (In office) [facility] Work Phone: Start: 11-25-2012 End: 11-25-2012 Echocardiography Echocardiogram (complete) [facility] Work Phone: Start: 11-25-2012 End: 07-25-2013 Follow Up Appt 3 months Follow Up Appt 3 months [facility] Work Phone: Laboratory data interpretation [facility] Immunizations Immunization Date Immunization Notes Care Provider Fa cility 12-30-2020 Kathia ([place]) Dr. Lenny Ramos Work Phone: [facility] 12-02-2020 Kathia (Placido) Dr. Lenny Ramos Work Phone: [facility] 11-01-2020 influenza, injectable,quadrivalent , preservative free, pediatric Dr. Lenny Ramos Work Phone: [facility] 08-26-2018 influenza, injectabl e, quadrivalent, preservative free [facility] 08-26-2018 influenza, seasonal, injectable Dr. Lenny Ramos Work Phone: [facility] 12-09-2017 tetanus toxoid, redu samantha diphtheria toxoid, and acellular pertussis vaccine, adsorbed Dr. Lenny Ramos Work Phone: [facility] 08-25-2017 influenza, injectabl e, quadrivalent, preservative free [facility] 08-25-2017 influenza, seasonal, injectable Dr. Lenny Ramos Work Phone: [facility] 08-27-2016 influenza, injectabl e, quadrivalent, preservative free [facility] 08-27-2016 influenza, seasonal, injectable Dr. Lenny Ramos Work Phone: [facility] 06-02-2016 hepatitis A vaccine, adult dosage Dr. Lenny Ramos Work Phone: [facility] 05-18-1996 measles, mumps and rubella virus vaccine Dr. Lenny Ramos Work Phone: [facility] 03-29-1995 hepatitis B vaccine, pediatric or pediatric/adolescent dosage Dr. Lenny Ramos Work Phone: [facility] 07-23-1994 hepatitis B vaccine, pediatric or pediatric/adolescent dosage Dr. Lenny Ramos Work Phone: [facility] 06-05-1994 hepatitis B vaccine, pediatric or pediatric/adolescent dosage Dr. Lenny Ramos Work Phone: [facility] 05-17-1992 measles, mumps and rubella virus vaccine Dr. Lenny Ramos Work Phone: [facility] Payers Date Payer Category Payer Self-pay [id number] 2025 Unknown [id number] Private Health Insurance A00 [id number] Private Health Insurance [id number] Unknown [id number] Unknown [id number] Unknown [id number] Social History Date Type Detail Facility Start: 07-24-2022 End: 01-01-2023 Tobacco smoking status NHIS Unknown if ever smoked [facility] Start: 02-24-2019 None [facility] Start: 1990 Sex Assigned At Male [facility] Start: 01-01-2023 Tobacco smoking stat us IAIS Ex-smoker (finding) [facility] Sex Male [facility] Evaluation note Note Date & Type Note Facility Evaluation note Diagnosis Onset Date Healthcare maintenance nonea ctive Low back strain noneactive Contact dermatitis due to poison jovany noneactive Essential (primary) hypertension chronic HLD (hyperlipidemia) chronic ANEUDY (obstructive sleep apnea) chronic Encounter for annual health examination noneactive Metabolic syndrome noneactiv e Low HDL (under 40) noneactiv e BMI 40.0-44.9, adult noneact ashley [facility] Work Phone: Evaluation note Note Date & Type Note Facility Evaluation note Diagnosis Onset Date Essential (primary) hypertension chronic HLD (hyperlipidemia) chronic ANEUDY (obstructive sleep apnea) chronic Encounter for annual health examination noneactive Metabolic syndrome noneactiv e Low HDL (under 40) noneactiv e BMI 40.0-44.9, adult noneact ashley Acute maxillary sinusitis no neactive [facility] Work Phone: Evaluation note Note Date & Type Note Facility Evaluation note Diagnosis Onset Date Acute maxillary sinusitis no neactive ANEUDY (obstructive sleep apnea) chronic [facility] Work Phone: Evaluation note Note Date & Type Note Facility Evaluation note No assessment information availa ble [facility] Work Phone: Reason for referral (narrative) Note Date & Type Note Facility Reason for referral (narrative) No reason for referral information available [facility] Work Phone: Summary Purpose Family History No Family History Records Found Relationship Condition Age at Onset Recorded Date/T katharina grandfather Cardiac disease Unknown Advance Directives No Advanced Directives Records Found Advance Directive Response Recorded Date/ Time Living Will Yes April 29, 2022 1 1:37am Power of Fur Blower Operator Yes April 29, 2022 11:37am Advance Directive Response Recorded Date/ Time Living Will Yes April 29, 2022 1 0:37am Power of Fur Blower Operator Yes April 29, 2022 10:37am Chief Complaint and Reason for Visit Chief Complaint Poison Jovany CHECK UP Reason for Visit Healthcare maintenan ce Low back strain Contact dermatitis due to poison jovany Essential (primary) hypertension HLD (hyperlipidemia) ANEUDY (obstructive sleep apnea) Encounter for annual health examination Metabolic syndrome Low HDL (under 40) BMI 40.0-44.9, adult Chief Complaint CHECK UP COLD Reason for Visit Essential (primary) hypertension HLD (hyperlipidemia) ANEUDY (obstructive sleep apnea) Encounter for annual health examination Metabolic syndrome Low HDL (under 40) BMI 40.0-44.9, adult Acute maxillary sinusitis Chief Complaint COLD PERSONAL CONCERNS Reason for Visit Acute maxillary sinu sitis ANEUDY (obstructive sleep apnea) Additional Source Comments (unrecognized sect ion and content) No Status Records FoundNo Status Records Found INFORMATION SOURCE (unrecogn ized section and content) DATE CREATED AUTHOR 05/23/2018 [facility] DATE CREATED AUTHOR AUTHOR'S ORGANIZ ATION 09/13/2025 [facility] Goals (unrecognized section and content) Goals may be documented in a n alternate sectionGoals may be documented in an alternate sectionGoals may be documented in an alternate sectionGoals may be documented in an alternate sectionGoals may be documented in an alternate sectionGoals may be documented in an alternate sectionGoals may be documented in an alternate section Care Teams (unrecognized sec tion and content) Team Status: Active Member Role Status Dates Dr. Lenny Ramos , DO Family Provider Active Dr. Lenny Ramos , DO Primary Care Provider Active Team Status: Inactive Member Role Status Dates Dr. Lenny Ramos , DO Primary Care Provider, Referr ing Provider Active [facility] Attending Provider Active Team Status: Inactive Member Role Status Dates Dr. Lenny Ramos , DO Primary Care Provider Active Dr. Savita Arthur MD Attending Provider Active Team Status: Active Member Role Status Dates Dr. Lenny Ramos , DO Family Provider Active Team Status: Inactive Member Role Status Dates Dr. Savita Arthur MD Attending Provider Active Team Status: Active Member Role Status Dates Sarita SHORE, WELDER APPRENTICE-C Primary Care Provider Activ e Team Status: Inactive Member Role Status Dates Sarita SHORE, WELDER APPRENTICE-C Primary Care Provider Activ e Start: April 11, 2025 End: April 11, 2025 Sarita CONCEPCIONC, WELDER APPRENTICE-C Attending Provider Active Start: April 11, 2025 End: April 11, 2025 Team Status: Active Member Role/Relationship Status Dates Sarita SHORE, WELDER APPRENTICE-C Primary Care Provider Activ e Team Status: Inactive Member Role/Relationship Status Dates Sarita SHORE, WELDER APPRENTICE-C Primary Care Provider Activ e Start: April 11, 2025 End: April 11, 2025 Sarita SHORE, WELDER APPRENTICE-C Attending Provider Active Start: April 11, 2025 End: April 11, 2025 Team Status: Inactive Member Role/Relationship Status Dates Sarita SHORE, WELDER APPRENTICE-C Primary Care Provider Activ e Start: June 12, 2025 End: June 12, 2025 Sarita SHORE, WELDER APPRENTICE-C Attending Provider Active Start: June 12, 2025 End: June 12, 2025 Team Status: Active Member Role/Relationship Status Dates Dr. Savita Arthur MD Primary care physician Active Team Status: Inactive Member Role/Relationship Status Dates Sarita SHORE, WELDER APPRENTICE-C Primary care physician Acti ve Start: June 12, 2025 End: June 12, 2025 Sarita SHORE, WELDER APPRENTICE-C Attending physician Active Start: June 12, 2025 End: June 12, 2025 Team Status: Inactive Member Role/Relationship Status Dates Dr. Savita Arthur MD Primary care physician Active Start: August 08, 2025 End: August 08, 2025 Dr. Savita Arthur MD Attending physician Active Start: August 08, 2025 End: August 08, 2025 Dr. Savita Arthur MD Referring Provider Active Start: August 08, 2025 End: August 08, 2025 FOR RECORDS PERTAINING TO PATIENTS WHO ARE [...] BE BASED ON THE PRIMARY CLINICAL RECORDS. [employer] provides no warranty or guarantee of the accuracy or completeness of information in this document.
--- OUTSIDE RECORDS SUMMARY | 2025-09-13 14:09 | XMS RPT_ITS | CCD ---
Author Organization [facility] Care Team Providers [facility] Librarian Name Role Phone Khadijah Estrella Unavailable Unavailable [...] Provider TED Colon Attending Provider Gail Landry SUPERVISOR FITTING-C, Sarita Primary Care Provider Brady SUPERVISOR FITTING-C, Sarita Attending Provider Brady SUPERVISOR FITTING-C, Sarita Primary Care Physician Brady SUPERVISOR FITTING-C, Sarita Attending Physician Dr. Savita Arthur MD Primary Care Physician Dr. Savita Arthur MD Attending Physician Dr. Savita Arthur MD Referring Provider Savita Arthur Primary Care Unavailable Savita Arthur Attending Unavailable Savita Arthur Referring Unavailable [facility], Sarita Attending Unavailabl e [facility], Sarita [facility], Sarita Primary Care Unavailabl e [facility], Sarita Attending Unavailabl e [facility], Sarita Primary Care Unavailabl e [facility], Sartia Attending Unavailabl e Allergies Allergy Classification Reported Allergen(s) Allergy Type Date of Onset Reaction(s) Facility (6 sources) aliskiren Drug Allergy 2 Orthostatic hypotension [facility] Work Phone: [phone] (6 sources) lisinopril Drug Allergy 2 orthostatic hypotension [facility] Work Phone: [phone] (6 sources) nebivolol Drug Allergy 2 Palpitations and orthostatic hypotension [facility] Work Phone: [phone] (6 sources) PINE TREES; Translations: [PINE TREES] allergy to substance 2 [facility] Work Phone: [phone] Medications Current Medications Medication Drug Class(es) Dates Sig (Normalized) Sig (Original) aspirin 81 mg delayed release oral tablet (13 sources) Platelet Aggregation Inhibitor, Nonsteroidal Anti-inflammatory Drug Start: 02-24-2019 take 1 tablet by mouth at bedtime Start: 10-20-2016 take 1 tablet by katie th once daily ASPIRIN EC 81 MG TBEC One tablet by mouth daily ASPIRIN [id number] Hao Barcenas MD benzonatate 200 mg oral [...] by mouth daily as needed CYCLOBENZAPRINE HCL [id number] Hao Barcenas MD dental device for sleep [...] TABS 1 tab twice daily HYDROCODONE-ACETAMI NOPHEN [id number] Chandler Mejia MD Start: 07-11-2010 End: 11-25-2012 VICODIN 5-500 MG TABS 1 tab twice daily HYDROCODONE-ACETAMINOPHEN [id number] Hao Barcenas MD Start: 07-11-2010 VICODIN 5-500 MG TABS 1 tab twice daily HYDROCODONE-ACETAMINOPHEN [id number] Chandler Mejia MD Start: 07-11-2010 End: 11-25-2012 VICODIN 5-500 MG TABS 1 tab twice daily HYDROCODONE-ACETAMINOPHEN [id number] Hao Barcenas MD [id number] actuat albuterol 0.09 mg/actuat metered dose [...] One tablet by mouth daily ALISKIREN FUMARATE [id number] Alona Dawkins RN amLODIPine 2.5 mg oral tablet (12 sources) Dihydropyridine Calcium Channel Abhi Start: 01-31-2013 End: 08-07-2013 take 1 tablet by mouth once daily NORVASC 2.5 MG TABS One tablet by mouth daily AMLODIPINE BESYLATE [id number] Hao Barcenas MD amoxicillin 875 mg / [...] TABS One tablet by mouth daily ATENOLOL [id number] Alona Dawkins RN Carboxymethylce llulose-Citric (Plenity) 0.75 [...] by mouth daily OMEGA-3 FATTY ACIDS CAPS [id number] Hao Barcenas MD Start: 06-02-2016 take 2 tablets by mo [facility] once daily FISH OIL CAPS Two tablets by mouth daily OMEGA-3 FATTY ACIDS CAPS [id number] Hao Barcenas MD hydroCHLOROthiazide 12.5 mg oral tablet (18 sources) Thiazide Diuretic Start: 08-07-2013 End: 01-19-2017 take 1 tablet by mouth once HYDROCHLOROTHIAZIDE 25 MG TABS One tablet by mouth daily per pcp HYDROCHLOROTHIAZIDE [id number] Hao Barcenas MD Start: 08-07-2013 [facility] HYDROCHLOROTHIAZIDE 12.5 MG TABS One tablet by mouth daily HYDROCHLOROTHIAZIDE [id number] Carrie Fields PA-C hydroCHLOROthiazide 12.5 mg / lisinopril 10 mg oral tablet (20 sources) Thiazide Diuretic, Angiotensin Converting Enzyme Inhibitor Start: 01-06-2018 End: 06-18-2022 take 10-12.5 mg by mouth once daily Lisinopril-Hydrochlorothiazide (Zestoretic) 10-12.5 mg tablet Discontinued 1 {tbl} PO .QD 90 3 June 19, 2021 9:42am June 18, 2022 10:47am Start: 01-19-2017 ZESTORETIC 10- 12.5 MG TABS daily LISINOPRIL-HYDROCHLOROTHIAZIDE [id number] Roxanna Swanson DC icosapent ethyl 1000 mg [...] TABS One tablet by mouth daily LISINOPRIL [id number] Hao Barcenas MD 24 hr metoprolol succinate [...] once daily METOPROLOL SUCCINATE ER 25 MG [id number] One tablet by mouth daily METOPROLOL SUCCINATE [id number] Hao Barcenas MD Start: 11-25-2012 End: 06-02-2016 take 1 tablet by mouth once daily TOPROL XL 50 MG [id number] One tablet by mouth daily METOPROLOL SUCCINATE [id number] Hao Barcenas MD MULTIPLE VITAMIN (2 sources) Start: 11-25-2012 take 1 tablet by mouth once daily MULTIVITAMINS TABS One tablet by mouth daily MULTIPLE VITAMIN [id number] Hao Barcenas MD MULTIPLE VITAMIN (4 sources) Start: 11-25-2012 take 1 tablet by mouth once daily MULTIVITAMINS TABS One tablet by mouth daily MULTIPLE VITAMIN [id number] Hao Barcenas MD nebivolol 5 mg oral tablet (12 sources) Start: 11-24-2012 End: 11-25-2012 take 1 tablet by mouth once daily BYSTOLIC 5 MG TABS One tablet by mouth daily NEBIVOLOL HCL [id number] Alona Dawkins RN Tirzepatide (1 source) Start: [...] Interpretation Reference Range Facility CRP, High Sensitivity [id number] on 09-13-2025 CRP, HIGH SENS 134.20 mg/L High 0.00-3.00 [facility] Comment on above: Result Comment: Resu lts confirmed on dilution. Relative Risk for Future Cardiovascular Event Low <1.00 Average 1.00 - 3.00 High >3.00 Performed at: [address] [id number] Fire Control Technician B: Carmine Box PhD, Phone: [phone] Performed By: #### L 500.4050, L3100.7870, L501.2400, L501.4021, L501.2450, L100.0100 #### [facility] [address] [place], [address] Amylaseon 09-12-2025 JORGE 28 U/L Normal 28-100 [facility] Comment on above: Order Comment: ADD O N JORGE Performed By: #### L 500.4050, L3100.7870, L501.2400, L501.4021, L501.2450, L100.0100 #### [facility] [address] [place], [address] CBC W/Diff, Automatedon 08-29 Absolute Lymph 0.99 X10 3/uL Normal 0.83-4.51 [facility] Comment on above: Performed By: #### L 500.4050, L3100.7870, L501.2400, L501.4021, L501.2450, L100.0100 #### [facility] [address] [place], [address] Absolute Neut 7.0 X10 3/uL Normal 2.0-7.7 [facility] Comment on above: Performed By: #### L 500.4050, L3100.7870, L501.2400, L501.4021, L501.2450, L100.0100 #### [facility] [address] [place], [address] Basophils/100 WBC (Bld) 0.2 % Normal 0-1 [facility] Comment on above: Performed By: #### L 500.4050, L3100.7870, L501.2400, L501.4021, L501.2450, L100.0100 #### [facility] [address] [place], [address] Eosinophils/100 WBC (Bld) 0.1 % Normal 0-5 [facility] Comment on above: Performed By: #### L 500.4050, L3100.7870, L501.2400, L501.4021, L501.2450, L100.0100 #### [facility] [address] [place], [address] Erythrocyte distribution width (RBC) [Ratio] 12.5 % Normal 11.6-14.6 [facility] Comment on above: Performed By: #### L 500.4050, L3100.7870, L501.2400, L501.4021, L501.2450, L100.0100 #### [facility] [address] [place], [address] Hematocrit (Bld) [Volume fraction] 40.7 % Normal 40-54 [facility] Comment on above: Performed By: #### L 500.4050, L3100.7870, L501.2400, L501.4021, L501.2450, L100.0100 #### [facility] [address] [place], [address] Hemoglobin (Bld) [Mass/Vol] 14.1 g/dL Normal 13.0-16.5 [facility] Comment on above: Performed By: #### L 500.4050, L3100.7870, L501.2400, L501.4021, L501.2450, L100.0100 #### [facility] [address] [place], [address] IG% 0.400 Normal 0.0-0.9 [facility] Comment on above: Result Comment: IG% - Immature Granulocytes (promyelocytes, myelocytes and metamyelocytes) > 1% indicates that a LEFT SHIFT is Present. Performed By: #### L 500.4050, L3100.7870, L501.2400, L501.4021, L501.2450, L100.0100 #### [facility] [address] [place], [address] Lymphocytes/100 WBC (Bld) 11.7 % Low 19-41 [facility] Comment on above: Performed By: #### L 500.4050, L3100.7870, L501.2400, L501.4021, L501.2450, L100.0100 #### [facility] [address] [place], [address] MCH (RBC) [Entitic mass] 31.1 pg Normal 27.0-32.0 [facility] Comment on above: Performed By: #### L 500.4050, L3100.7870, L501.2400, L501.4021, L501.2450, L100.0100 #### [facility] [address] [place], [address] MCHC (RBC) [Mass/Vol] 34.6 g/dL Normal 32-36 [facility] Comment on above: Performed By: #### L 500.4050, L3100.7870, L501.2400, L501.4021, L501.2450, L100.0100 #### [facility] [address] [place], [address] MCV (RBC) [Entitic vol] 89.8 fL Normal 80-94 [facility] Comment on above: Performed By: #### L 500.4050, L3100.7870, L501.2400, L501.4021, L501.2450, L100.0100 #### [facility] [address] [place], [address] Monocytes/100 WBC (Bld) 4.7 % Normal 0-10 [facility] Comment on above: Performed By: #### L 500.4050, L3100.7870, L501.2400, L501.4021, L501.2450, L100.0100 #### [facility] [address] [place], [address] Neutrophils/100 WBC (Bld) 82.9 % High 47-70 [facility] Comment on above: Performed By: #### L 500.4050, L3100.7870, L501.2400, L501.4021, L501.2450, L100.0100 #### [facility] [address] [place], [address] Nucleated RBC (Bld) [#/Vol] 0 10*3/uL Normal 0-5 [facility] Comment on above: Performed By: #### L 500.4050, L3100.7870, L501.2400, L501.4021, L501.2450, L100.0100 #### [facility] [address] [place], [address] Platelet mean volume (Bld) [Entitic vol] 9.5 fL Normal 6.2-12.0 [facility] Comment on above: Performed By: #### L 500.4050, L3100.7870, L501.2400, L501.4021, L501.2450, L100.0100 #### [facility] [address] [place], [address] Platelets (Bld) [#/Vol] 236 10*3/uL Normal 150-450 [facility] Comment on above: Performed By: #### L 500.4050, L3100.7870, L501.2400, L501.4021, L501.2450, L100.0100 #### [facility] [address] [place], [address] RBC (Bld) [#/Vol] 4.53 10*6/uL Low 4.6-6.2 [facility] Comment on above: Performed By: #### L 500.4050, L3100.7870, L501.2400, L501.4021, L501.2450, L100.0100 #### [facility] [address] [place], [address] RDW SD 40.8 fl Normal 35.1-43.9 [facility] Comment on above: Performed By: #### L 500.4050, L3100.7870, L501.2400, L501.4021, L501.2450, L100.0100 #### [facility] [address] [place], [address] WBC (Bld) [#/Vol] 8.5 10*3/uL Normal 4.4-11.0 [facility] Comment on above: Performed By: #### L 500.4050, L3100.7870, L501.2400, L501.4021, L501.2450, L100.0100 #### [facility] [address] [place], [address] [facility] 09-11-2025 Albumin [Mass/Vol] 4.2 g/dL Normal 3.5-5.0 [facility] Comment on above: Performed By: #### L 500.4050, L3100.7870, L501.2400, L501.4021, L501.2450, L100.0100 #### [facility] [address] [place], [address] Albumin/Globulin [Mass ratio] 1.4 {ratio} Normal 0.9-2.4 [facility] Comment on above: Performed By: #### L 500.4050, L3100.7870, L501.2400, L501.4021, L501.2450, L100.0100 #### [facility] [address] [place], [address] ALK PHOS 62 U/L Normal 40-129 [facility] Comment on above: Performed By: #### L 500.4050, L3100.7870, L501.2400, L501.4021, L501.2450, L100.0100 #### [facility] [address] [place], [address] ALT [Catalytic activity/Vol] 57 U/L High <=46 [facility] Comment on above: Performed By: #### L 500.4050, L3100.7870, L501.2400, L501.4021, L501.2450, L100.0100 #### [facility] [address] [place], [address] AST [Catalytic activity/Vol] 34 U/L Normal <=37 [facility] Comment on above: Performed By: #### L 500.4050, L3100.7870, L501.2400, L501.4021, L501.2450, L100.0100 #### [facility] [address] [place], [address] Bilirubin [Mass/Vol] 0.98 mg/dL Normal 0.00-1.30 [facility] Comment on above: Performed By: #### L 500.4050, L3100.7870, L501.2400, L501.4021, L501.2450, L100.0100 #### [facility] [address] [place], [address] BUN/CRE 19.7 RATIO Normal 10-20 [facility] Comment on above: Performed By: #### L 500.4050, L3100.7870, L501.2400, L501.4021, L501.2450, L100.0100 #### [facility] [address] [place], [address] Calcium [Mass/Vol] 9.9 mg/dL Normal 7.6-11.0 [facility] Comment on above: Performed By: #### L 500.4050, L3100.7870, L501.2400, L501.4021, L501.2450, L100.0100 #### [facility] [address] [place], [address] Chloride [Moles/Vol] 99 mmol/L Normal 98-108 [facility] Comment on above: Performed By: #### L 500.4050, L3100.7870, L501.2400, L501.4021, L501.2450, L100.0100 #### [facility] [address] [place], [address] CO2 [Moles/Vol] 26.5 mmol/L Normal 21.0-32.0 [facility] Comment on above: Performed By: #### L 500.4050, L3100.7870, L501.2400, L501.4021, L501.2450, L100.0100 #### [facility] [address] [place], [address] Creatinine [Mass/Vol] 0.93 mg/dL Normal 0.70-1.20 [facility] Comment on above: Performed By: #### L 500.4050, L3100.7870, L501.2400, L501.4021, L501.2450, L100.0100 #### [facility] [address] [place], [address] GAP 12 Normal 5-15 [facility] Comment on above: Performed By: #### L 500.4050, L3100.7870, L501.2400, L501.4021, L501.2450, L100.0100 #### [facility] [address] [place], [address] GFR/1.73 sq M.predicted among non-blacks MDRD (S/P/Bld) [Vol rate/Area] 111 mL/min/{1.73_m2} Normal >60 [facility] Comment on above: Result Comment: mL/m in/1.73m2 CKD-EPI Creatinine Equation (2020) Performed By: #### L 500.4050, L3100.7870, L501.2400, L501.4021, L501.2450, L100.0100 #### [facility] [address] [place], [address] Globulin (S) [Mass/Vol] 3.0 g/dL Normal 2.2-4.2 [facility] Comment on above: Performed By: #### L 500.4050, L3100.7870, L501.2400, L501.4021, L501.2450, L100.0100 #### [facility] [address] [place], [address] Glucose [Mass/Vol] 87 mg/dL Normal 70-99 [facility] Comment on above: Performed By: #### L 500.4050, L3100.7870, L501.2400, L501.4021, L501.2450, L100.0100 #### [facility] [address] [place], [address] Potassium [Moles/Vol] 3.8 mmol/L Normal 3.3-5.1 [facility] Comment on above: Performed By: #### L 500.4050, L3100.7870, L501.2400, L501.4021, L501.2450, L100.0100 #### [facility] [address] [place], [address] Sodium [Moles/Vol] 138 mmol/L Normal 133-145 [facility] Comment on above: Performed By: #### L 500.4050, L3100.7870, L501.2400, L501.4021, L501.2450, L100.0100 #### [facility] [address] [place], [address] T PROT 7.2 g/dL Normal 5.9-8.4 [facility] Comment on above: Performed By: #### L 500.4050, L3100.7870, L501.2400, L501.4021, L501.2450, L100.0100 #### [facility] [address] [place], [address] Urea nitrogen [Mass/Vol] 18 mg/dL Normal 4-19 [facility] Comment on above: Performed By: #### L 500.4050, L3100.7870, L501.2400, L501.4021, L501.2450, L100.0100 #### [facility] [address] [place], [address] L501.4021on 09-11-2025 Trop T High Sen < 6 Normal <=22 [facility] Comment on above: Performed By: #### L 500.4050, L3100.7870, L501.2400, L501.4021, L501.2450, L100.0100 #### [facility] [address] [place], [address] Lipaseon 09-11-2025 Lipase [Catalytic activity/Vol] 20 U/L Normal 13-75 [facility] Comment on above: Result Comment: Rima carr note: LIPASE revised reference range effective 23. New Lipase methodology. Expected to produce lower values than the previous assay method. NEW Reference Range: 13 - 75 U/L Performed By: #### L 500.4050, L3100.7870, L501.2400, L501.4021, L501.2450, L100.0100 #### [facility] [address] [place], [place], [id number] HIVon 08-08-2025 HIV Non-Reactive Normal Nonreactive [facility] Comment on above: Order Comment: PLEAS E [...] Order the HIV antibody detection and differentiation: [id number] Performed By: #### L 3890.6006, L3890.6301, L3890.6102, L509.8002 #### [facility] [address] [facility] [place], [place], [id number] Hepatitis C Antibodyon 08-08 Hepatitis C Ab Non-Reactive Normal Nonreactive [facility] Comment on above: Order Comment: PLEAS E [...] HCV Quant by PCR testing - HCVPCR #[id number] Non Reactive: < 0.8 Equivocal: >/= 0.8 to < 1.0 Reactive: >/= 1.0 The CDC requires that a reactive/equivocal HCV antibody result be sent out for confirmation. HCV Quant by PCR testing. Performed By: #### L 3890.6006, L3890.6301, L3890.6102, L509.8002 #### [facility] [address] [facility] [place], [place], [id number] L3890.6102on 08-08-2025 HEP B Surf Ag Non-Reactive Normal Nonreactive [facility] Comment on above: Order Comment: PLEAS E REFLEX HECAB HIV IF POSITIVE Result Comment: Reac tive: Presumptive evidence of HBV. Repeatedly reactive samples must be confirmed using a neutralization test ([facility] HBsAg Confirmatory Test) Non-Reactive: HBsAg not detected; does not exclude the possibility of exposure to HBV Performed By: #### L 3890.6006, L3890.6301, L3890.6102, L509.8002 #### [facility] [address] [place], [address] Laboratory - Microbiology an d Antimicrobial susceptibilityOrdered By: Savita Arthur on 08-08-2025 HBV surface Ag Ql (S) Non-Reactive Nonreactive [facility] Comment on above: Reactive: Presumptiv e evidence of HBV. Repeatedly reactive samples must be confirmed using a neutralization test ([facility] HBsAg Confirmatory Test)Non-Reactive: HBsAg not detected; does not exclude the possibility of exposure to HBV No Panel InformationOrdered By: Savita Arthur on 08-08-2025 HIV (1&2) Antibody Non-Reactive Nonreactive [facility] Comment on above: Non-ReactiveReactive Repeatedly reactive samples must be confirmed according to CDC recommended confirmatory algorithms. The subresults for either HIVAG or AHIV can be used as an aid in the selection of the confirmation algorithm for reactive samples.Send out specimens with Reactive results to [facility] for confirmation.Order the HIV antibody detection and differentiation: #[id number] Syphilis Antibodieson 2024 Syphilis Abs Non-Reactive Normal Nonreactive [facility] Comment on above: Order Comment: PLEAS E REFLEX HECAB HIV IF POSITIVE Performed By: #### L 3890.6006, L3890.6301, L3890.6102, L509.8002 #### [facility] [address] [facility] [place], [place], [id number] Absolute lymphocyte countOrd ered By: [facility] [place] Sarita Abreu on 06-12-2025 Lymphocytes Auto (Unsp spec) [#/Vol] 1.67 10*3/uL 0.83-4.51 [facility] Absolute neutrophil countOrd ered By: [facility] [place] Sarita Abreu on 06-12-2025 Neutrophils (Bld) [#/Vol] 3.8 10*3/uL 2.0-7.7 [facility] Amylaseon 06-12-2025 JORGE 40 U/L Normal 28-100 [facility] Comment on above: Performed By: #### L 500.4050, L3100.7870, L501.2400, L501.4021, L501.2450, L100.0100 #### [facility] [address] [place], [address] Anion gap in Serum or Plasma Ordered By: [facility] [place] Sarita Abreu on 06-12-2025 Anion gap [Moles/Vol] 12 mmol/L 04-12 [facility] Automated lymphocyte count a s percentage of total leukocytesOrdered By: [facility] Brady on 06-12-2025 Lymphocytes/100 WBC Auto (Unsp spec) 28.4 % - [facility] BUN/creatinine ratioOrdered By: [facility] Brady on 06-12-2025 Urea nitrogen/Creatinine [Mass ratio] 13.6 mg/mg 10- [facility] Basophil percentageOrdered B y: [facility] Brady on 06-12-2025 Basophils/100 WBC (Bld) 0.7 % 0-1 [facility] Bilirubin, totalOrdered By: [facility] Brady on 06-12-2025 Bilirubin [Mass/Vol] 0.51 mg/dL 0.00-1.30 [facility] CBC W/Diff, Automatedon 05-29 Absolute Lymph 1.67 X10 3/uL Normal 0.83-4.51 [facility] Comment on above: Performed By: #### L 500.4050, L3100.7870, L501.2400, L501.4021, L501.2450, L100.0100 #### [facility] [address] [place], [address] Absolute Neut 3.8 X10 3/uL Normal 2.0-7.7 [facility] Comment on above: Performed By: #### L 500.4050, L3100.7870, L501.2400, L501.4021, L501.2450, L100.0100 #### [facility] [address] [place], [address] Basophils/100 WBC (Bld) 0.7 % Normal 0-1 [facility] Comment on above: Performed By: #### L 500.4050, L3100.7870, L501.2400, L501.4021, L501.2450, L100.0100 #### [facility] [address] [place], [address] Eosinophils/100 WBC (Bld) 0.9 % Normal 0-5 [facility] Comment on above: Performed By: #### L 500.4050, L3100.7870, L501.2400, L501.4021, L501.2450, L100.0100 #### [facility] [address] [place], [address] Erythrocyte distribution width (RBC) [Ratio] 12.3 % Normal 11.6-14.6 [facility] Comment on above: Performed By: #### L 500.4050, L3100.7870, L501.2400, L501.4021, L501.2450, L100.0100 #### [facility] [address] [place], [address] Hematocrit (Bld) [Volume fraction] 39.2 % Low 40-54 [facility] Comment on above: Performed By: #### L 500.4050, L3100.7870, L501.2400, L501.4021, L501.2450, L100.0100 #### [facility] [address] [place], [address] Hemoglobin (Bld) [Mass/Vol] 13.7 g/dL Normal 13.0-16.5 [facility] Comment on above: Performed By: #### L 500.4050, L3100.7870, L501.2400, L501.4021, L501.2450, L100.0100 #### [facility] [address] [place], [address] IG% 0.200 Normal 0.0-0.9 [facility] Comment on above: Result Comment: IG% - Immature Granulocytes (promyelocytes, myelocytes and metamyelocytes) > 1% indicates that a LEFT SHIFT is Present. Performed By: #### L 500.4050, L3100.7870, L501.2400, L501.4021, L501.2450, L100.0100 #### [facility] [address] [place], [address] Lymphocytes/100 WBC (Bld) 28.4 % Normal 19-41 [facility] Comment on above: Performed By: #### L 500.4050, L3100.7870, L501.2400, L501.4021, L501.2450, L100.0100 #### [facility] [address] [place], [address] MCH (RBC) [Entitic mass] 30.1 pg Normal 27.0-32.0 [facility] Comment on above: Performed By: #### L 500.4050, L3100.7870, L501.2400, L501.4021, L501.2450, L100.0100 #### [facility] [address] [place], [address] MCHC (RBC) [Mass/Vol] 34.9 g/dL Normal 32-36 [facility] Comment on above: Performed By: #### L 500.4050, L3100.7870, L501.2400, L501.4021, L501.2450, L100.0100 #### [facility] [address] [place], [address] MCV (RBC) [Entitic vol] 86.2 fL Normal 80-94 [facility] Comment on above: Performed By: #### L 500.4050, L3100.7870, L501.2400, L501.4021, L501.2450, L100.0100 #### [facility] [address] [place], [address] Monocytes/100 WBC (Bld) 6.0 % Normal 0-10 [facility] Comment on above: Performed By: #### L 500.4050, L3100.7870, L501.2400, L501.4021, L501.2450, L100.0100 #### [facility] [address] [place], [address] Neutrophils/100 WBC (Bld) 63.8 % Normal 47-70 [facility] Comment on above: Performed By: #### L 500.4050, L3100.7870, L501.2400, L501.4021, L501.2450, L100.0100 #### [facility] [address] [place], [address] Nucleated RBC (Bld) [#/Vol] 0 10*3/uL Normal 0-5 [facility] Comment on above: Performed By: #### L 500.4050, L3100.7870, L501.2400, L501.4021, L501.2450, L100.0100 #### [facility] [address] [place], [address] Platelet mean volume (Bld) [Entitic vol] 10.5 fL Normal 6.2-12.0 [facility] Comment on above: Performed By: #### L 500.4050, L3100.7870, L501.2400, L501.4021, L501.2450, L100.0100 #### [facility] [address] [place], [address] Platelets (Bld) [#/Vol] 198 10*3/uL Normal 150-450 [facility] Comment on above: Performed By: #### L 500.4050, L3100.7870, L501.2400, L501.4021, L501.2450, L100.0100 #### [facility] [address] [place], [address] RBC (Bld) [#/Vol] 4.55 10*6/uL Low 4.6-6.2 [facility] Comment on above: Performed By: #### L 500.4050, L3100.7870, L501.2400, L501.4021, L501.2450, L100.0100 #### [facility] [address] [place], [address] RDW SD 38.7 fl Normal 35.1-43.9 [facility] Comment on above: Performed By: #### L 500.4050, L3100.7870, L501.2400, L501.4021, L501.2450, L100.0100 #### [facility] [address] [place], [address] WBC (Bld) [#/Vol] 5.9 10*3/uL Normal 4.4-11.0 [facility] Comment on above: Performed By: #### L 500.4050, L3100.7870, L501.2400, L501.4021, L501.2450, L100.0100 #### [facility] [address] [place], [address] CRPon 06-12-2025 C-REACTIVE PROT 4.08 mg/L High 0.0-3.0 [facility] Comment on above: Performed By: #### L 500.4050, L3100.7870, L501.2400, L501.4021, L501.2450, L100.0100 #### [facility] [address] [place], [address] Carbon dioxide, total [Moles /volume] in Central venous bloodOrdered By: [facility] [place] Sarita Abreu on 06-12-2025 CO2 [Moles/Vol] 22.0 mmol/L 21.0-32.0 [facility] Chloride assayOrdered By: VS Mac Stein Brady on 06-12-2025 Chloride [Moles/Vol] 104 mmol/L 98-108 [facility] Comprehensive Metabolic Prof ilon 06-12-2025 Albumin [Mass/Vol] 4.2 g/dL Normal 3.5-5.0 [facility] Comment on above: Performed By: #### L 500.4050, L3100.7870, L501.2400, L501.4021, L501.2450, L100.0100 #### [facility] [address] [place], [address] Albumin/Globulin [Mass ratio] 1.6 {ratio} Normal 0.9-2.4 [facility] Comment on above: Performed By: #### L 500.4050, L3100.7870, L501.2400, L501.4021, L501.2450, L100.0100 #### [facility] [address] [place], [address] ALK PHOS 61 U/L Normal 40-129 [facility] Comment on above: Performed By: #### L 500.4050, L3100.7870, L501.2400, L501.4021, L501.2450, L100.0100 #### [facility] [address] [place], [address] ALT [Catalytic activity/Vol] 18 U/L Normal <=46 [facility] Comment on above: Performed By: #### L 500.4050, L3100.7870, L501.2400, L501.4021, L501.2450, L100.0100 #### [facility] [address] [place], [address] AST [Catalytic activity/Vol] 20 U/L Normal <=37 [facility] Comment on above: Performed By: #### L 500.4050, L3100.7870, L501.2400, L501.4021, L501.2450, L100.0100 #### [facility] [address] [place], [address] Bilirubin [Mass/Vol] 0.51 mg/dL Normal 0.00-1.30 [facility] Comment on above: Performed By: #### L 500.4050, L3100.7870, L501.2400, L501.4021, L501.2450, L100.0100 #### [facility] [address] [place], [address] BUN/CRE 13.6 RATIO Normal 10-20 [facility] Comment on above: Performed By: #### L 500.4050, L3100.7870, L501.2400, L501.4021, L501.2450, L100.0100 #### [facility] [address] [place], [address] Calcium [Mass/Vol] 9.3 mg/dL Normal 7.6-11.0 [facility] Comment on above: Performed By: #### L 500.4050, L3100.7870, L501.2400, L501.4021, L501.2450, L100.0100 #### [facility] [address] [place], [address] Chloride [Moles/Vol] 104 mmol/L Normal 98-108 [facility] Comment on above: Performed By: #### L 500.4050, L3100.7870, L501.2400, L501.4021, L501.2450, L100.0100 #### [facility] [address] [place], [address] CO2 [Moles/Vol] 22.0 mmol/L Normal 21.0-32.0 [facility] Comment on above: Performed By: #### L 500.4050, L3100.7870, L501.2400, L501.4021, L501.2450, L100.0100 #### [facility] [address] [place], [address] Creatinine [Mass/Vol] 1.13 mg/dL Normal 0.70-1.20 [facility] Comment on above: Performed By: #### L 500.4050, L3100.7870, L501.2400, L501.4021, L501.2450, L100.0100 #### [facility] [address] [place], [address] GAP 12 Normal 5-15 [facility] Comment on above: Performed By: #### L 500.4050, L3100.7870, L501.2400, L501.4021, L501.2450, L100.0100 #### [facility] [address] [place], [address] GFR/1.73 sq M.predicted among non-blacks MDRD (S/P/Bld) [Vol rate/Area] 87 mL/min/{1.73_m2} Normal >60 [facility] Comment on above: Result Comment: mL/m in/1.73m2 CKD-EPI Creatinine Equation (2020) Performed By: #### L 500.4050, L3100.7870, L501.2400, L501.4021, L501.2450, L100.0100 #### [facility] [address] [place], [address] Globulin (S) [Mass/Vol] 2.6 g/dL Normal 2.2-4.2 [facility] Comment on above: Performed By: #### L 500.4050, L3100.7870, L501.2400, L501.4021, L501.2450, L100.0100 #### [facility] [address] [place], [address] Glucose [Mass/Vol] 91 mg/dL Normal 70-99 [facility] Comment on above: Performed By: #### L 500.4050, L3100.7870, L501.2400, L501.4021, L501.2450, L100.0100 #### [facility] [address] [place], [address] Potassium [Moles/Vol] 3.9 mmol/L Normal 3.3-5.1 [facility] Comment on above: Performed By: #### L 500.4050, L3100.7870, L501.2400, L501.4021, L501.2450, L100.0100 #### [facility] [address] [place], [address] Sodium [Moles/Vol] 138 mmol/L Normal 133-145 [facility] Comment on above: Performed By: #### L 500.4050, L3100.7870, L501.2400, L501.4021, L501.2450, L100.0100 #### [facility] [address] [place], [address] T PROT 6.9 g/dL Normal 5.9-8.4 [facility] Comment on above: Performed By: #### L 500.4050, L3100.7870, L501.2400, L501.4021, L501.2450, L100.0100 #### [facility] [address] [place], [address] Urea nitrogen [Mass/Vol] 15 mg/dL Normal 4-19 [facility] Comment on above: Performed By: #### L 500.4050, L3100.7870, L501.2400, L501.4021, L501.2450, L100.0100 #### [facility] [address] [place], [address] Eosinophil percentageOrdered By: [facility] [place] Sarita Abreu on 06-12-2025 Eosinophils/100 WBC (Bld) 0.9 % 0-5 [facility] Erythrocyte Sed Rateon 06-12 SED RATE 2 mm/hr Normal 0-20 [facility] Comment on above: Performed By: #### L 500.4050, L3100.7870, L501.2400, L501.4021, L501.2450, L100.0100 #### [facility] [address], [address] Erythrocyte distribution wid th ratioOrdered By: [facility] [place] Sarita Abreu on 06-12-2025 Erythrocyte distribution width (RBC) [Ratio] 12.3 % 11.6-14.6 [facility] Erythrocyte distribution wid th standard deviationOrdered By: [facility] [place] Sarita Abreu on 06-12-2025 Erythrocyte distribution width (RBC) [Ratio] 38.7 fl 35.1-43.9 [facility] Erythrocyte sedimentation ra teOrdered By: [facility] [place] Sarita Abreu on 06-12-2025 ESR (Bld) [Velocity] 2 mm/h 0-20 [facility] Glomerular filtration rate ( GFR) estimation/1.73 sq m using serum, plasma, or whole bOrdered By: [facility] [place] Sarita Abreu on 06-12-2025 GFR/1.73 sq M.predicted among non-blacks MDRD (S/P/Bld) [Vol rate/Area] 87 mL/min/{1.73_m2} >60 [facility] Comment on above: mL/min/1.73m2 CKD-EP I Creatinine Equation (2020) Hematocrit Auto (Bld) [Volum e fraction]Ordered By: [facility] [place] Sarita Abreu on 06-12-2025 Hematocrit (Bld) [Volume fraction] 39.2 % Low 40-54 [facility] Hemoglobin measurementOrdere d By: [facility] [place] Sarita Abreu on 06-12-2025 Hemoglobin (Bld) [Mass/Vol] 13.7 g/dL 13.0-16.5 [facility] Immature granulocytes/100 WB C Auto (Bld)Ordered By: [facility] [place] Sarita Abreu on 06-12-2025 Immature granulocytes/100 WBC (Bld) 0.200 % 0.0-0.9 [facility] Comment on above: IG% - Immature Granu locytes (promyelocytes, myelocytes and metamyelocytes) > 1% indicates that a LEFT SHIFT is Present. Laboratory - Chemistry and C hemistry - challengeOrdered By: [facility] [place] Sarita Abreu on 06-12-2025 AST [Catalytic activity/Vol] 20 U/L <38 [facility] Lipaseon 06-12-2025 Lipase [Catalytic activity/Vol] 44 U/L Normal 13-75 [facility] Comment on above: Result Comment: Rima carr note: LIPASE revised reference range effective 23. New Lipase methodology. Expected to produce lower values than the previous assay method. NEW Reference Range: 13 - 75 U/L Performed By: #### L 500.4050, L3100.7870, L501.2400, L501.4021, L501.2450, L100.0100 #### [facility] [address] [place] [address], [address] Lipase measurementOrdered By : [facility] [place] Sarita Abreu on 06-12-2025 Lipase [Catalytic activity/Vol] 44 U/L 13-75 [facility] Comment on above: Please note:LIPASE r evised reference range effective 23. New Lipase methodology. Expected to produce lower values than the previous assay method. NEW Reference Range: 13 - 75 U/L MCV (mean corpuscular volume ) determinationOrdered By: [facility] [place] Sarita Abreu on 06-12-2025 MCV (RBC) [Entitic vol] 86.2 fL 80-94 [facility] Mean corpuscular hemoglobin (MCH) determinationOrdered By: [facility] [place] Sarita Abreu on 06-12-2025 MCH (RBC) [Entitic mass] 30.1 pg 27.0-32.0 [facility] Mean corpuscular hemoglobin concentration (MCHC) determinationOrdered By: [facility] [place] Sarita Abreu on 06-12-2025 MCHC (RBC) [Mass/Vol] 34.9 g/dL 32-36 [facility] Mean platelet volume determi nationOrdered By: [facility] [place] Sarita Abreu on 06-12-2025 Platelet mean volume (Bld) [Entitic vol] 10.5 fL 6.2-12.0 [facility] Monocyte percentageOrdered B y: [facility] [place] Sarita Brady on 06-12-2025 Monocytes/100 WBC (Bld) 6.0 % 0-10 [facility] Neutrophil percentageOrdered By: [facility] [place] Sarita Brady on 06-12-2025 Neutrophils/100 WBC (Bld) 63.8 % 47-70 [facility] Nucleated red blood cell per centageOrdered By: [facility] [place] Saritaregina Abreu on 06-12-2025 Nucleated RBC/100 WBC (Bld) [Ratio] 0 % 0-5 [facility] Platelet countOrdered By: [facility] Sarita Abreu on 06-12-2025 Platelets (Bld) [#/Vol] 198 10*3/uL 150-450 [facility] Potassium measurement (mass/ volume)Ordered By: [facility] [place] Sarita Abreu on 06-12-2025 Potassium (Unsp spec) [Mass/Vol] 3.9 mmol/L 3.3-5.1 [facility] RBC Auto (Bld) [#/Vol]Ordere d By: [facility] [place] Sarita Brady on 06-12-2025 RBC (Bld) [#/Vol] 4.55 10*6/uL Low 4.6-6.2 [facility] Serum creatinine measurement (mass/volume)Ordered By: [facility] [place] Sarita Abreu on 06-12-2025 Creatinine [Mass/Vol] 1.13 mg/dL 0.70-1.20 [facility] Serum globulin measurementOr dered By: [facility] [place] Saritaregina Abreu on 06-12-2025 Globulin (S) [Mass/Vol] 2.6 g/dL 2.2-4.2 [facility] Serum glucose measurement (m ass/volume)Ordered By: [facility] [place] Sarita Abreu on 06-12-2025 Glucose [Mass/Vol] 91 mg/dL 70-99 [facility] Serum or plasma C reactive p rotein measurement (mass/volume)Ordered By: [facility] [place] Sarita Abreu on 06-12-2025 CRP [Mass/Vol] 4.08 mg/L High 0.0-3.0 [facility] Serum or plasma alanine potter otransferase (ALT) measurementOrdered By: [facility] [place] Sarita Abreu on 06-12-2025 ALT [Catalytic activity/Vol] 18 U/L <47 [facility] Serum or plasma albumin curt urement (mass/volume)Ordered By: [facility] [place] Sarita Abreu on 06-12-2025 Albumin [Mass/Vol] 4.2 g/dL 3.5-5.0 [facility] Serum or plasma albumin/glob ulin mass ratioOrdered By: [facility] [place] Sarita Abreu on 06-12-2025 Albumin/Globulin [Mass ratio] 1.6 {ratio} 0.9-2.4 [facility] Serum or plasma alkaline jj sphatase measurementOrdered By: [facility] Brady on 06-12-2025 ALP [Catalytic activity/Vol] 61 U/L 40-129 [facility] Serum or plasma amylase curt urement (enzymatic activity/volume)Or[facility] By: [facility] on 06-12-2025 Amylase [Catalytic activity/Vol] 40 U/L 28-100 [facility] Serum or plasma calcium curt urement (mass/volume)Ordered By: [facility] [place] Sarita Abreu on 06-12-2025 Calcium [Mass/Vol] 9.3 mg/dL 7.6-11.0 [facility] Serum or plasma urea nitroge n measurement (mass/volume)Ordered By: [facility] [place] Sarita Abreu on 06-12-2025 Urea nitrogen [Mass/Vol] 15 mg/dL 4-19 [facility] Sodium levelOrdered By: [facility] 06-12-2025 Sodium [Moles/Vol] 138 mmol/L 133-145 [facility] Total proteinOrdered By: [facility] [place] Sarita Abreu on 06-12-2025 Protein [Mass/Vol] 6.9 g/dL 5.9-8.4 [facility] White blood cell (WBC) count Ordered By: [facility] [place] Sarita Abreu on 06-12-2025 WBC (Bld) [#/Vol] 5.9 10*3/uL 4.4-11.0 [facility] Lyme Antibodies,W Bloton Lyme Additional Comment Normal . [facility] Comment on above: Result Comment: Per CDC [...] or more days of symptoms. Performed at: [address] [id number] [employer] Technician B: Bruna Barton MD, Phone: [phone] Performed By: #### L 500.4050, L3100.7870, L501.2400, L501.4021, L501.2450, L100.0100 #### [facility] [address] [facility] [place], [place], [id number] LYME IgG INTERP Negative Normal Negative [facility] Comment on above: Performed By: #### L 500.4050, L3100.7870, L501.2400, L501.4021, L501.2450, L100.0100 #### [facility] [address] [facility] [place], [place], [id number] LYME IgM INTERP Negative Normal Negative [facility] Comment on above: Result Comment: Rima carr Note: Lyme immunoblot alone is not recommended for the diagnosis of Lyme disease. Current guidelines recommend the use of a two-tiered approach to Lyme serology testing to improve the sensitivity and specificity of testing. [facility] offers test code 111598 Lyme Disease Serology with Reflex to aid in the diagnosis of Lyme Disease. Performed By: #### L 500.4050, L3100.7870, L501.2400, L501.4021, L501.2450, L100.0100 #### [facility] [address] [place], [address] P18 Ab Absent Normal . [facility] Comment on above: Performed By: #### L 500.4050, L3100.7870, L501.2400, L501.4021, L501.2450, L100.0100 #### [facility] [address] [place], [address] P23 Ab Absent Normal . [facility] Comment on above: Performed By: #### L 500.4050, L3100.7870, L501.2400, L501.4021, L501.2450, L100.0100 #### [facility] [address] [place], [address] P23 Ab Present Normal . [facility] Comment on above: Performed By: #### L 500.4050, L3100.7870, L501.2400, L501.4021, L501.2450, L100.0100 #### [facility] [address] [place], [address] P28 Ab Absent Normal . [facility] Comment on above: Performed By: #### L 500.4050, L3100.7870, L501.2400, L501.4021, L501.2450, L100.0100 #### [facility] [address] [place], [address] P30 Ab Absent Normal . [facility] Comment on above: Performed By: #### L 500.4050, L3100.7870, L501.2400, L501.4021, L501.2450, L100.0100 #### [facility] [address] [place], [address] P39 Ab Present Normal . [facility] Comment on above: Performed By: #### L 500.4050, L3100.7870, L501.2400, L501.4021, L501.2450, L100.0100 #### [facility] [address] [place], [address] P39 Ab Absent Normal . [facility] Comment on above: Performed By: #### L 500.4050, L3100.7870, L501.2400, L501.4021, L501.2450, L100.0100 #### [facility] [address] [place], [address] P41 Ab Present Normal . [facility] Comment on above: Performed By: #### L 500.4050, L3100.7870, L501.2400, L501.4021, L501.2450, L100.0100 #### [facility] [address] [place], [address] P41 Ab Absent Normal . [facility] Comment on above: Performed By: #### L 500.4050, L3100.7870, L501.2400, L501.4021, L501.2450, L100.0100 #### [facility] [address] [place], [address] P45 Ab Absent Normal . [facility] Comment on above: Performed By: #### L 500.4050, L3100.7870, L501.2400, L501.4021, L501.2450, L100.0100 #### [facility] [address] [place], [address] P58 Ab Absent Normal . [facility] Comment on above: Performed By: #### L 500.4050, L3100.7870, L501.2400, L501.4021, L501.2450, L100.0100 #### [facility] [address] [place], [address] P66 Ab Absent Normal . [facility] Comment on above: Performed By: #### L 500.4050, L3100.7870, L501.2400, L501.4021, L501.2450, L100.0100 #### [facility] [address] [place], [address] P93 Ab Absent Normal . [facility] Comment on above: Performed By: #### L 500.4050, L3100.7870, L501.2400, L501.4021, L501.2450, L100.0100 #### [facility] [address] [place], [address] Absolute lymphocyte countOrd ered By: [facility] 04-11-2025 Lymphocytes Auto (Unsp spec) [#/Vol] 0.95 10*3/uL 0.83-4.51 [facility] Absolute neutrophil countOrd ered By: [facility] Brady on 04-11-2025 Neutrophils (Bld) [#/Vol] 4.0 10*3/uL 2.0-7.7 [facility] Anion gap in Serum or Plasma Or[facility] By: [facility] on 04-11-2025 Anion gap [Moles/Vol] 11 mmol/L 5-15 [facility] Automated lymphocyte count a s percentage of total leukocytesOrdered By: [facility] Abreu on 04-11-2025 Lymphocytes/100 WBC Auto (Unsp spec) 17.6 % Low 19-41 [facility] BUN/creatinine ratioOrdered By: [facility] Brady on 04-11-2025 Urea nitrogen/Creatinine [Mass ratio] 15.0 mg/mg 10-20 [facility] Basophil percentageOrdered B y: [facility] [place] Sarita Abreu on 04-11-2025 Basophils/100 WBC (Bld) 0.7 % 0-1 [facility] Bilirubin, totalOrdered By: [facility] Abreu on 04-11-2025 Bilirubin [Mass/Vol] 0.75 mg/dL 0.00-1.30 [facility] CBC W/Diff, Automatedon 03-29 Absolute Lymph 0.95 X10 3/uL Normal 0.83-4.51 [facility] Comment on above: Performed By: #### L 500.4050, L3100.7870, L501.2400, L501.4021, L501.2450, L100.0100 #### [facility] [address] [place], [address] Absolute Neut 4.0 X10 3/uL Normal 2.0-7.7 [facility] Comment on above: Performed By: #### L 500.4050, L3100.7870, L501.2400, L501.4021, L501.2450, L100.0100 #### [facility] [address] [place], [address] Basophils/100 WBC (Bld) 0.7 % Normal 0-1 [facility] Comment on above: Performed By: #### L 500.4050, L3100.7870, L501.2400, L501.4021, L501.2450, L100.0100 #### [facility] [address] [place], [address] Eosinophils/100 WBC (Bld) 0.2 % Normal 0-5 [facility] Comment on above: Performed By: #### L 500.4050, L3100.7870, L501.2400, L501.4021, L501.2450, L100.0100 #### [facility] [address] [place], [address] Erythrocyte distribution width (RBC) [Ratio] 11.6 % Normal 11.6-14.6 [facility] Comment on above: Performed By: #### L 500.4050, L3100.7870, L501.2400, L501.4021, L501.2450, L100.0100 #### [facility] [address] [place], [address] Hematocrit (Bld) [Volume fraction] 40.4 % Normal 40-54 [facility] Comment on above: Performed By: #### L 500.4050, L3100.7870, L501.2400, L501.4021, L501.2450, L100.0100 #### [facility] [address] [place], [address] Hemoglobin (Bld) [Mass/Vol] 14.2 g/dL Normal 13.0-16.5 [facility] Comment on above: Performed By: #### L 500.4050, L3100.7870, L501.2400, L501.4021, L501.2450, L100.0100 #### [facility] [address] [place], [address] IG% 0.200 Normal 0.0-0.9 [facility] Comment on above: Result Comment: IG% - Immature Granulocytes (promyelocytes, myelocytes and metamyelocytes) > 1% indicates that a LEFT SHIFT is Present. Performed By: #### L 500.4050, L3100.7870, L501.2400, L501.4021, L501.2450, L100.0100 #### [facility] [address] [place], [address] Lymphocytes/100 WBC (Bld) 17.6 % Low 19-41 [facility] Comment on above: Performed By: #### L 500.4050, L3100.7870, L501.2400, L501.4021, L501.2450, L100.0100 #### [facility] [address] [place], [address] MCH (RBC) [Entitic mass] 30.7 pg Normal 27.0-32.0 [facility] Comment on above: Performed By: #### L 500.4050, L3100.7870, L501.2400, L501.4021, L501.2450, L100.0100 #### [facility] [address] [place], [address] MCHC (RBC) [Mass/Vol] 35.1 g/dL Normal 32-36 [facility] Comment on above: Performed By: #### L 500.4050, L3100.7870, L501.2400, L501.4021, L501.2450, L100.0100 #### [facility] [address] [place], [address] MCV (RBC) [Entitic vol] 87.4 fL Normal 80-94 [facility] Comment on above: Performed By: #### L 500.4050, L3100.7870, L501.2400, L501.4021, L501.2450, L100.0100 #### [facility] [address] [place], [address] Monocytes/100 WBC (Bld) 6.9 % Normal 0-10 [facility] Comment on above: Performed By: #### L 500.4050, L3100.7870, L501.2400, L501.4021, L501.2450, L100.0100 #### [facility] [address] [place], [address] Neutrophils/100 WBC (Bld) 74.4 % High 47-70 [facility] Comment on above: Performed By: #### L 500.4050, L3100.7870, L501.2400, L501.4021, L501.2450, L100.0100 #### [facility] [address] [place], [address] Nucleated RBC (Bld) [#/Vol] 0 10*3/uL Normal 0-5 [facility] Comment on above: Performed By: #### L 500.4050, L3100.7870, L501.2400, L501.4021, L501.2450, L100.0100 #### [facility] [address] [place], [address] Platelet mean volume (Bld) [Entitic vol] 9.1 fL Normal 6.2-12.0 [facility] Comment on above: Performed By: #### L 500.4050, L3100.7870, L501.2400, L501.4021, L501.2450, L100.0100 #### [facility] [address] [place], [address] Platelets (Bld) [#/Vol] 227 10*3/uL Normal 150-450 [facility] Comment on above: Performed By: #### L 500.4050, L3100.7870, L501.2400, L501.4021, L501.2450, L100.0100 #### [facility] [address] [place], [address] RBC (Bld) [#/Vol] 4.62 10*6/uL Normal 4.6-6.2 [facility] Comment on above: Performed By: #### L 500.4050, L3100.7870, L501.2400, L501.4021, L501.2450, L100.0100 #### [facility] [address] [place], [address] RDW SD 37.1 fl Normal 35.1-43.9 [facility] Comment on above: Performed By: #### L 500.4050, L3100.7870, L501.2400, L501.4021, L501.2450, L100.0100 #### [facility] [address] [place], [address] WBC (Bld) [#/Vol] 5.4 10*3/uL Normal 4.4-11.0 [facility] Comment on above: Performed By: #### L 500.4050, L3100.7870, L501.2400, L501.4021, L501.2450, L100.0100 #### [facility] [address] [place], [address] Carbon dioxide, total [Moles /volume] in Central venous bloodOrdered By: [facility] [place] Sarita Brady on 04-11-2025 CO2 [Moles/Vol] 24.8 mmol/L 21.0-32.0 [facility] Chloride assayOrdered By: [facility] Sarita Brady on 04-11-2025 Chloride [Moles/Vol] 100 mmol/L 98-108 [facility] Comprehensive Metabolic Prof ilon 04-11-2025 Albumin [Mass/Vol] 4.3 g/dL Normal 3.5-5.0 [facility] Comment on above: Performed By: #### L 500.4050, L3100.7870, L501.2400, L501.4021, L501.2450, L100.0100 #### [facility] [address] [place], [address] Albumin/Globulin [Mass ratio] 1.4 {ratio} Normal 0.9-2.4 [facility] Comment on above: Performed By: #### L 500.4050, L3100.7870, L501.2400, L501.4021, L501.2450, L100.0100 #### [facility] [address] [place], [address] ALK PHOS 74 U/L Normal 40-129 [facility] Comment on above: Performed By: #### L 500.4050, L3100.7870, L501.2400, L501.4021, L501.2450, L100.0100 #### [facility] [address] [place], [address] ALT [Catalytic activity/Vol] 30 U/L Normal <=46 [facility] Comment on above: Performed By: #### L 500.4050, L3100.7870, L501.2400, L501.4021, L501.2450, L100.0100 #### [facility] [address] [place], [address] AST [Catalytic activity/Vol] 28 U/L Normal <=37 [facility] Comment on above: Performed By: #### L 500.4050, L3100.7870, L501.2400, L501.4021, L501.2450, L100.0100 #### [facility] [address] [place], [address] Bilirubin [Mass/Vol] 0.75 mg/dL Normal 0.00-1.30 [facility] Comment on above: Performed By: #### L 500.4050, L3100.7870, L501.2400, L501.4021, L501.2450, L100.0100 #### [facility] [address] [place], [address] BUN/CRE 15.0 RATIO Normal 10-20 [facility] Comment on above: Performed By: #### L 500.4050, L3100.7870, L501.2400, L501.4021, L501.2450, L100.0100 #### [facility] [address] [place], [address] Calcium [Mass/Vol] 9.6 mg/dL Normal 7.6-11.0 [facility] Comment on above: Performed By: #### L 500.4050, L3100.7870, L501.2400, L501.4021, L501.2450, L100.0100 #### [facility] [address] [place], [address] Chloride [Moles/Vol] 100 mmol/L Normal 98-108 [facility] Comment on above: Performed By: #### L 500.4050, L3100.7870, L501.2400, L501.4021, L501.2450, L100.0100 #### [facility] [address] [place], [address] CO2 [Moles/Vol] 24.8 mmol/L Normal 21.0-32.0 [facility] Comment on above: Performed By: #### L 500.4050, L3100.7870, L501.2400, L501.4021, L501.2450, L100.0100 #### [facility] [address] [place], [address] Creatinine [Mass/Vol] 1.12 mg/dL Normal 0.70-1.20 [facility] Comment on above: Performed By: #### L 500.4050, L3100.7870, L501.2400, L501.4021, L501.2450, L100.0100 #### [facility] [address] [place], [address] GAP 11 Normal 5-15 [facility] Comment on above: Performed By: #### L 500.4050, L3100.7870, L501.2400, L501.4021, L501.2450, L100.0100 #### [facility] [address] [place], [address] GFR/1.73 sq M.predicted among non-blacks MDRD (S/P/Bld) [Vol rate/Area] 88 mL/min/{1.73_m2} Normal >60 [facility] Comment on above: Result Comment: mL/m in/1.73m2 CKD-EPI Creatinine Equation (2020) Performed By: #### L 500.4050, L3100.7870, L501.2400, L501.4021, L501.2450, L100.0100 #### [facility] [address] [place], [address] Globulin (S) [Mass/Vol] 3.1 g/dL Normal 2.2-4.2 [facility] Comment on above: Performed By: #### L 500.4050, L3100.7870, L501.2400, L501.4021, L501.2450, L100.0100 #### [facility] [address] [place], [address] Glucose [Mass/Vol] 84 mg/dL Normal 70-99 [facility] Comment on above: Performed By: #### L 500.4050, L3100.7870, L501.2400, L501.4021, L501.2450, L100.0100 #### [facility] [address] [place], [address] Potassium [Moles/Vol] 4.5 mmol/L Normal 3.3-5.1 [facility] Comment on above: Performed By: #### L 500.4050, L3100.7870, L501.2400, L501.4021, L501.2450, L100.0100 #### [facility] [address] [place], [address] Sodium [Moles/Vol] 136 mmol/L Normal 133-145 [facility] Comment on above: Performed By: #### L 500.4050, L3100.7870, L501.2400, L501.4021, L501.2450, L100.0100 #### [facility] [address] [place], [address] T PROT 7.3 g/dL Normal 5.9-8.4 [facility] Comment on above: Performed By: #### L 500.4050, L3100.7870, L501.2400, L501.4021, L501.2450, L100.0100 #### [facility] [address] [place], [address] Urea nitrogen [Mass/Vol] 17 mg/dL Normal 4-19 [facility] Comment on above: Performed By: #### L 500.4050, L3100.7870, L501.2400, L501.4021, L501.2450, L100.0100 #### [facility] [address] [place], [address] Eosinophil percentageOrdered By: [facility] [place] Sarita Abreu on 04-11-2025 Eosinophils/100 WBC (Bld) 0.2 % 0-5 [facility] Erythrocyte distribution wid th ratioOrdered By: [facility] [place] Sarita Abreu on 04-11-2025 Erythrocyte distribution width (RBC) [Ratio] 11.6 % 11.6-14.6 [facility] Erythrocyte distribution wid th standard deviationOrdered By: [facility] [place] Sarita Abreu on 04-11-2025 Erythrocyte distribution width (RBC) [Ratio] 37.1 fl 35.1-43.9 [facility] Glomerular filtration rate ( GFR) estimation/1.73 sq m using serum, plasma, or whole bOrdered By: [facility] [place] Sarita Abreu on 04-11-2025 GFR/1.73 sq M.predicted among non-blacks MDRD (S/P/Bld) [Vol rate/Area] 88 mL/min/{1.73_m2} >60 [facility] Comment on above: mL/min/1.73m2 CKD-EP I Creatinine Equation (2020) Hematocrit Auto (Bld) [Volum e fraction]Ordered By: [facility] [place] Sarita Abreu on 04-11-2025 Hematocrit (Bld) [Volume fraction] 40.4 % 40-54 [facility] Hemoglobin measurementOrdere d By: [facility] [place] Sarita Abreu on 04-11-2025 Hemoglobin (Bld) [Mass/Vol] 14.2 g/dL 13.0-16.5 [facility] Immature granulocytes/100 WB C Auto (Bld)Ordered By: [facility] [place] Sarita Abreu on 04-11-2025 Immature granulocytes/100 WBC (Bld) 0.200 % 0.0-0.9 [facility] Comment on above: IG% - Immature Granu locytes (promyelocytes, myelocytes and metamyelocytes) > 1% indicates that a LEFT SHIFT is Present. Laboratory - Chemistry and C hemistry - challengeOrdered By: [facility] [place] Sarita Abreu on 04-11-2025 AST [Catalytic activity/Vol] 28 U/L <38 [facility] MCV (mean corpuscular volume ) determinationOrdered By: [facility] [place] Sarita Abreu on 04-11-2025 MCV (RBC) [Entitic vol] 87.4 fL 80-94 [facility] Mean corpuscular hemoglobin (MCH) determinationOrdered By: [facility] [place] Sarita Abreu on 04-11-2025 MCH (RBC) [Entitic mass] 30.7 pg 27.0-32.0 [facility] Mean corpuscular hemoglobin concentration (MCHC) determinationOrdered By: [facility] [place] Sarita Abreu on 04-11-2025 MCHC (RBC) [Mass/Vol] 35.1 g/dL 32-36 [facility] Mean platelet volume determi nationOrdered By: [facility] [place] Sarita Abreu on 04-11-2025 Platelet mean volume (Bld) [Entitic vol] 9.1 fL 6.2-12.0 [facility] Monocyte percentageOrdered B y: [facility] 04-11-2025 Monocytes/100 WBC (Bld) 6.9 % 0-10 [facility] Monoteston 04-11-2025 Monocytes (Bld) [#/Vol] Negative Normal Negative [facility] Comment on above: Performed By: #### L 500.4050, L3100.7870, L501.2400, L501.4021, L501.2450, L100.0100 #### [facility] [address] [place], [address] Neutrophil percentageOrdered By: [facility] on 04-11-2025 Neutrophils/100 WBC (Bld) 74.4 % High 47-70 [facility] No Panel InformationOrdered By: [facility] on 04-11-2025 Lyme Disease IgG Ab 30 kDa Band Absent . [facility] Lyme Disease IgG Ab 93 kDa Band Absent . [facility] Lyme Disease IgG West Blot Interp Negative Negative [facility] Lyme Disease IgM Ab (Western Blot) Negative Negative [facility] Comment on above: Please Note: Lyme im munoblot alone is not recommended forthe diagnosis of Lyme disease. Current guidelines recommendthe use of a two-tiered approach to Lyme serology testingto improve the sensitivity and specificity of testing.[employer] offers test code 729201 Lyme Disease Serology withReflex to aid in the diagnosis of Lyme Disease. Lyme Disease Western Blot Comments Comment . [facility] Comment on above: Per CDC criteria, th [...] 30 or more days of symptoms.Performed at: [facility] [address] [id number] Director: Bruna Barton MD, Phone: [phone] Nucleated red blood cell per centageOrdered By: [facility] [place] Sarita Abreu on 04-11-2025 Nucleated RBC/100 WBC (Bld) [Ratio] 0 % 0-5 [facility] Platelet countOrdered By: CARLENE Abreu on 04-11-2025 Platelets (Bld) [#/Vol] 227 10*3/uL 150-450 [facility] Potassium measurement (mass/ volume)Ordered By: MONE Abreu on 04-11-2025 Potassium (Unsp spec) [Mass/Vol] 4.5 mmol/L 3.3-5.1 [facility] RBC Auto (Bld) [#/Vol]Ordere d By: Mac Abreu on 04-11-2025 RBC (Bld) [#/Vol] 4.62 10*6/uL 4.6-6.2 [facility] Serum creatinine measurement (mass/volume)Ordered By: MONE Abreu on 04-11-2025 Creatinine [Mass/Vol] 1.12 mg/dL 0.70-1.20 [facility] Serum globulin measurementOr dered By: [facility] [place] Sarita Abreu on 04-11-2025 Globulin (S) [Mass/Vol] 3.1 g/dL 2.2-4.2 [facility] Serum glucose measurement (m ass/volume)Ordered By: [facility] [place] Sarita Abreu on 04-11-2025 Glucose [Mass/Vol] 84 mg/dL 70-99 [facility] Serum heterophile antibody d etectionOrdered By: [facility] [place] Sarita Abreu on 04-11-2025 Heterophile Ab Ql (S) Negative Negative [facility] Serum or plasma alanine potter otransferase (ALT) measurementOrdered By: [facility] A[facility] on 04-11-2025 ALT [Catalytic activity/Vol] 30 U/L <47 [facility] Serum or plasma albumin curt urement (mass/volume)Ordered By: [facility] [place] Sarita Abreu on 04-11-2025 Albumin [Mass/Vol] 4.3 g/dL 3.5-5.0 [facility] Serum or plasma albumin/glob ulin mass ratioOrdered By: [facility] on 04-11-2025 Albumin/Globulin [Mass ratio] 1.4 {ratio} 0.9-2.4 [facility] Serum or plasma alkaline jj sphatase measurementOrdered By: [facility] [place] Sarita Abreu on 04-11-2025 ALP [Catalytic activity/Vol] 74 U/L 40-129 [facility] Serum or plasma calcium curt urement (mass/volume)Ordered By: [facility] [place] Sarita Abreu on 04-11-2025 Calcium [Mass/Vol] 9.6 mg/dL 7.6-11.0 [facility] Serum or plasma urea nitroge n measurement (mass/volume)Ordered By: [facility] [place] Sarita Abreu on 04-11-2025 Urea nitrogen [Mass/Vol] 17 mg/dL 4-19 [facility] Sodium levelOrdered By: [facility] [place] Sarita Abreu on 04-11-2025 Sodium [Moles/Vol] 136 mmol/L 133-145 [facility] Total proteinOrdered By: [facility] [place] Sarita Abreu on 04-11-2025 Protein [Mass/Vol] 7.3 g/dL 5.9-8.4 [facility] White blood cell (WBC) count Ordered By: [facility] [place] Sarita Abreu on 04-11-2025 WBC (Bld) [#/Vol] 5.4 10*3/uL 4.4-11.0 [facility] HIV 1 and HIV-2 antibody ass ay with HIV-1 p24 antigen detectionOrdered By: Savita Arthur on 01-12-2024 HIV 1+2 Ab+HIV1 p24 Ag IA Ql Non-Reactive Nonreactive [facility] No Panel InformationOrdered By: Savita Arthur on 01-12-2024 Hepatitis B Surface Antigen Non-Reactive Nonreactive [facility] Hepatitis C Antibody Non-Reactive Nonreactive [facility] Comment on above: Non Reactive: < 0.8 Equivocal: >/= 0.8 to < 1.0 Reactive: >/= 1.0The CDC recommends that a reactive/equivocal HCV antibody result be followed up by the HCV Nucleic Acid Amplificationtest (063103) Serum Treponema species anti body detectionOrdered By: Savita Arthur on 01-12-2024 Treponema sp Ab Ql (S) Non-Reactive [facility] HIV 1 and HIV-2 antibody ass ay with HIV-1 p24 antigen detectionOrdered By: Dr. Arthur on 12-28-2022 HIV 1+2 Ab+HIV1 p24 Ag IA Ql Non-Reactive Nonreactive [facility] No Panel InformationOrdered By: Dr. Arthur on 12-28-2022 Hepatitis B Surface Antigen Non-Reactive Nonreactive [facility] Hepatitis C Antibody Non-Reactive Nonreactive [facility] Comment on above: Non Reactive: < 0.8 Equivocal: >/= 0.8 to < 1.0 Reactive: >/= 1.0The CDC recommends that a reactive/equivocal HCV antibody result be followed up by the HCV Nucleic Acid Amplificationtest (380771) Serum Treponema species anti body detectionOrdered By: Dr. Arthur on 12-28-2022 Treponema sp Ab Ql (S) Non-Reactive [facility] Absolute lymphocyte counton 07-24-2022 Lymphocytes Auto (Unsp spec) [#/Vol] 2.16 10*3/uL 0.83-4.51 [facility] Work Phone: Basophil percentageon 2021 Basophils/100 WBC (Bld) 0.7 % 0-1 [facility] Work Phone: Bilirubin [Mass/Vol] 0.70 mg/dL 0.20-1.00 [facility] Work Phone: Comment on above: For patients on eltr ombopag therapy, use of Dimension [place] TBIL is not recommended. Chloride [Moles/Vol] 105 mmol/L 98-107 [facility] Work Phone: Cholesterol [Mass/Vol] 148 mg/dL <200 [facility] Work Phone: Comment on above: <200 mg/dL Desirable 200-240 mg/dL Borderline >240 mg/dL High Risk Eosinophils/100 WBC (Bld) 1.0 % 0-5 [facility] Work Phone: Glucose [Mass/Vol] 91 mg/dL 74-106 [facility] Work Phone: Neutrophils (Bld) [#/Vol] 4.2 10*3/uL 2.0-7.7 [facility] Work Phone: Neutrophils/100 WBC (Bld) 61.1 % 47-70 [facility] Work Phone: Potassium [Moles/Vol] 3.8 mmol/L 3.5-5.1 [facility] Work Phone: Protein [Mass/Vol] 7.5 g/dL 6.4-8.2 [facility] Work Phone: Sodium [Moles/Vol] 139 mmol/L 136-145 [facility] Work Phone: Testosterone [Mass/Vol] 417.71 ng/dL [facility] Work Phone: Comment on above: CENTRAL 90% REFERENC E RANGES MALE AGE <50 197.44 - 669.58 ng/dL MALE AGE > or = 50 187.72 - 684.19 ng/dL FEMALE AGE <50 8.38 - 35.01 ng/dL FEMALE AGE > or = 50 <7.00 - 35.92 ng/dL Effective as of 06/24/21 Triglyceride [Mass/Vol] 161 mg/dL <199 [facility] Work Phone: Comment on above: The drugs N-Acetylcy steine and Metamizole may falsely depress this assay.Serum Triglycerides Reference Interval Normal <150 mg/dL Borderline high 150 - 199 mg/dL High 200 - 499 mg/dL Very High > or = 500 mg/dL WBC (Bld) [#/Vol] 6.9 10*3/uL 4.4-11.0 [facility] Work Phone: Blood erythrocytes count (nu mber/volume)on 07-24-2022 RBC (Bld) [#/Vol] 4.84 10*6/uL 4.6-6.2 [facility] Work Phone: Blood hemoglobin measurement (mass/volume)on 07-24-2022 Hemoglobin (Bld) [Mass/Vol] 14.5 g/dL 13.0-16.5 [facility] Work Phone: Blood lymphocytes/100 leukoc yteson 07-24-2022 Lymphocytes/100 WBC (Bld) 31.4 % 19-41 [facility] Work Phone: Blood monocytes/100 leukocyt eson 07-24-2022 Monocytes/100 WBC (Bld) 5.4 % 0-10 [facility] Work Phone: Blood platelet mean volumeon 07-24-2022 Platelet mean volume (Bld) [Entitic vol] 10.0 fL 6.2-12.0 [facility] Work Phone: Determination of erythrocyte mean corpuscular volume (MCV)on 07-24-2022 MCV (RBC) [Entitic vol] 90.1 fL 80-94 [facility] Work Phone: Hematocrit Auto (Bld) [Volum e fraction]on 07-24-2022 Hematocrit (Bld) [Volume fraction] 43.6 % 40-54 [facility] Work Phone: Laboratory - Chemistry and C hemistry - challengeon 07-24-2022 ALP [Catalytic activity/Vol] 62 U/L 45-117 [facility] Work Phone: ALT [Catalytic activity/Vol] 35 U/L 16-61 [facility] Work Phone: CO2 [Moles/Vol] 27.0 mmol/L 21.0-32.0 [facility] Work Phone: Globulin (S) [Mass/Vol] 3.6 g/dL 2.2-4.2 [facility] Work Phone: Urea nitrogen/Creatinine [Mass ratio] 14.9 mg/mg 10-20 [facility] Work Phone: Laboratory - Hematology and Cell countson 07-24-2022 Erythrocyte distribution width (RBC) [Entitic vol] 39.6 fL 35.1-43.9 [facility] Work Phone: Erythrocyte distribution width (RBC) [Ratio] 12.2 % 11.6-14.6 [facility] Work Phone: Immature granulocytes/100 WBC (Bld) 0.400 % 0.0-0.9 [facility] Work Phone: Comment on above: IG% - Immature Granu locytes (promyelocytes, myelocytes and metamyelocytes) > 1% indicates that a LEFT SHIFT is Present. MCH (RBC) [Entitic mass] 30.0 pg 27.0-32.0 [facility] Work Phone: Nucleated RBC/100 WBC (Bld) [Ratio] 0 % 0-5 [facility] [facility] Work Phone: MCHC Auto (RBC) [Mass/Vol]on 07-24-2022 MCHC (RBC) [Mass/Vol] 33.3 g/dL 32-36 [facility]: No Panel Informationon 07-24 Estimated GFR (MDRD) Amer 111 mL/min >60 [facility] Work Phone: Comment on above: GFR Calc Estimated GFR (MDRD) Non-Af Amer 91 mL/min >60 [facility] Work Phone: Comment on above: Non- GFR Calc Thyroid Stimulating Hormone (TSH) 1.05 uIU/mL 0.358-3.74 [facility] Work Phone: Vitamin D 25-Hydroxy 33.6 ng/mL [facility] Work Phone: Comment on above: Vitamin D 25(OH) Sta tus Range Deficiency <20 ng/mL (50nmol/L) Insufficiency 20 - 30 ng/mL (50 - 75 nmol/L) Sufficiency 30 - 100 ng/mL (75 - 250 nmol/L) Toxicity >100 ng/mL (>250 nmol/L) Platelets bldon 07-24-2022 Platelets (Bld) [#/Vol] 273 10*3/uL 150-450 [facility] Work Phone: Serum or plasma albumin curt urement (mass/volume)on 07-24-2022 Albumin [Mass/Vol] 3.9 g/dL 3.2-5.0 [facility] Work Phone: Serum or plasma albumin/glob ulin mass ratioon 07-24-2022 Albumin/Globulin [Mass ratio] 1.1 {ratio} 0.9-2.4 [facility] Work Phone: Serum or plasma calcium curt urement (mass/volume)on 07-24-2022 Calcium [Mass/Vol] 9.3 mg/dL 8.5-10.1 [facility] Work Phone: Serum or plasma cholesterol in HDL measurement (mass/volume)on 07-24-2022 Cholesterol in HDL [Mass/Vol] 28 mg/dL >40 [facility] Work Phone: Comment on above: The drugs N-Acetylcy steine and Metamizole may falsely depress this assay. Reference Range HDL <40 mg/dL Low HDL Cholesterol HDL >or= 60 mg/dL High HDL Cholesterol Serum or plasma cholesterol in VLDL measurement (mass/volume)on 07-24-2022 Cholesterol in VLDL [Mass/Vol] 32 mg/dL 5-40 [facility] Work Phone: Serum or plasma creatinine m easurement (mass/volume)on 07-24-2022 Creatinine [Mass/Vol] 1.01 mg/dL 0.70-1.30 [facility] Work Phone: Comment on above: The validity of the calculated GFR & GFRAA in patients over 70 years has not been determined. Clinical correlation is essential. Serum or plasma low density lipoprotein (LDL) cholesterol measurement (mass/volume)on 07-24-2022 Cholesterol in LDL [Mass/Vol] 88 mg/dL 0-130 [facility] Work Phone: Serum or plasma urea nitroge n measurement (mass/volume)on 07-24-2022 Urea nitrogen [Mass/Vol] 15 mg/dL 7-18 [facility] Work Phone: Thin prep Papanicolaou smear with manual screeningon 07-24-2022 Thin prep Papanicolaou smear with manual screening 11 U/L 15-37 [facility] Work Phone: Thin prep Papanicolaou smear with manual screening 7 5-15 [facility] Work Phone: OBSOLETEon 01-05-2018 OBSOLETE Refill (AGINTMLW) MARITZA RODRIGUEZ ([id number]) 1990 MDate Time Provider Department01/05/18 LURDES LEPE ([facility]) AGINTMLW During your visit today, we [...] Status:Closed by LURDES LEPE CNP on 01/06/18 [facility] Office Visit: Spine Visit- N EWon 09-27-2017 Dietary management education, guidance, and counseling (procedure) yes Invalid Interpretation Code [facility] Work Phone: [phone] Documentation of current medications (procedure) Done Invalid Interpretation Code [facility] Work Phone: [phone] Tobacco use CPHS Never smoker Invalid Interpretation Code [facility] Phone: [phone] Office Visiton 01-19-2017 Documentation of current medications (procedure) Done Invalid Interpretation Code [facility] Work Phone: [phone] Replaced Document: Kraig Venegas CG Observationson 01-19-2017 EKG QRS axis 43 deg Invalid Interpretation Code [facility] Phone: [phone] electrocardiogram interpretation Sinus Rhythm -RSR(V1) -probably normal for age. PROBABLY NORMAL FOR AGE Invalid Interpretation Code [facility] Phone: [phone] GE use only - for Link[employer]ic import when terms are not otherwise specified 406 ms Invalid Interpretation Code [facility] Phone: [phone] Heart rate 91 /min Invalid Interpretation Code [facility] Phone: [phone] Interpretation Sinus Rhythm -RSR(V1) -probably normal for age. PROBABLY NORMAL FOR AGE Invalid Interpretation Code [facility] Work Phone: [phone] P [place] 52 deg Invalid Interpretation Code [facility] Phone: [phone] P wave axis, electrocardiogram 52 deg Invalid Interpretation Code [facility] Phone: [phone] WI Interval 154 ms Invalid Interpretation Code [facility] Work Phone: [phone] WI interval, electrocardiogram 154 ms Invalid Interpretation Code [facility] Phone: [phone] QRS axis, electrocardiogram 43 deg Invalid Interpretation Code [facility] Phone: [phone] QRS Duration 121 ms Invalid Interpretation Code [facility] Work Phone: [phone] QRS duration, electrocardiogram 121 ms Invalid Interpretation Code [facility] Phone: [phone] QT Interval new path ms Invalid Interpretation Code [facility] Work Phone: [phone] QT interval, electrocardiogram new path ms Invalid Interpretation Code [facility] Phone: [phone] QTc [place] 406 ms Invalid Interpretation Code [facility] Work Phone: [phone] T [place] 37 deg Invalid Interpretation Code [facility] Work Phone: [phone] T wave axis, electrocardiogram 37 deg Invalid Interpretation Code [facility] Work Phone: [phone] 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 Left ventricular Ejection fraction 60 % Invalid Interpretation Code [facility] Work Phone: [phone] Lab Report: BMPon 08-09-2013 Calcium [Mass/Vol] 9.6 mg/dL Normal 8.5-10.1 [facility] Work Phone: [phone] Chloride [Moles/Vol] 103 mmol/L Normal 98-[address] [facility] Work Phone: [phone] Creatinine [Mass/Vol] 1.1 mg/dL Normal 0.8-1.3 [facility] Work Phone: [phone] Glucose [Mass/Vol] 73 mg/dL Normal 70-110 [facility] Work Phone: [phone] Potassium [Moles/Vol] 3.6 mmol/L Normal 3.5-5.1 [facility] Work Phone: [phone] Sodium [Moles/Vol] 140 mmol/L Normal 136-145 [facility] Work Phone: [phone] Urea nitrogen [Mass/Vol] 16 mg/dL Normal 7-18 [facility] Work Phone: [phone] Lab Report: CBCDon 3 Erythrocytes (RBC) 5.08 10*6/uL Normal 4.6-6.2 [facility] Work Phone: [phone] Hematocrit (Bld) [Volume fraction] 43.8 % Normal 40-54 [facility] Work Phone: [phone] Hematocrit (HCT) 43.8 % Normal 40-54 [facility] Work Phone: [phone] Hemoglobin (Bld) [Mass/Vol] 15.5 g/dL Normal 13.0-16.5 [facility] Work Phone: [phone] Platelets 208 10*3/mm3 Normal 150-450 [facility] Work Phone: [phone] Platelets (Bld) [#/Vol] 208 10*3/uL Normal 150-450 [facility] Work Phone: [phone] RBC (Bld) [#/Vol] 5.08 10*6/uL Normal 4.6-6.2 [facility] Work Phone: [phone] WBC (Bld) [#/Vol] 8.2 10*3/uL Normal 4.4-11.0 [facility] Work Phone: [phone] WBC (Leukocytes) 8.2 10*3/uL Normal 4.4-11.0 [facility] Work Phone: [phone] Lab Report: LIPIDon 08-09-20 13 Cholesterol [Mass/Vol] 117 mg/dL Normal 200 [facility] Work Phone: [phone] Cholesterol in HDL [Mass/Vol] 22 mg/dL Low [facility] Work Phone: [phone] Cholesterol in LDL [Mass/Vol] 57 mg/dL Normal 0-130 [facility] Work Phone: [phone] Lipoprotein.pre-beta [Mass/Vol] 38 mg/dL Normal 5-40 [facility] Work Phone: [phone] Triglyceride [Mass/Vol] 190 mg/dL Normal [facility] Work Phone: [phone] Lab Report: LIVERon 08-09-20 13 Albumin [Mass/Vol] 4.1 g/dL Normal 3.4-5.0 [facility] Work Phone: [phone] Alkaline phosphatase (ALP) 93 U/L Normal 50-136 [facility] Work Phone: [phone] ALP (Bld) [Catalytic activity/Vol] 93 U/L Normal 50-136 [facility] Work Phone: [phone] ALT [Catalytic activity/Vol] 42 U/L Normal 12-78 [facility] Work Phone: [phone] AST [Catalytic activity/Vol] 18 U/L Normal 15-37 [facility] Work Phone: [phone] Bilirubin [Mass/Vol] 1.10 mg/dL High 0.00-1.[address] [facility] Work Phone: [phone] Bilirubin.direct [Mass/Vol] 0.21 mg/dL Normal 0.00-0.30 [facility] Work Phone: [phone] Lab Report: TSHon 08-09-2013 Thyroid stimulating hormone (TSH) 1.96 u[iU]/mL Normal 0.358-3.74 [facility] Work Phone: [phone] TSH Qn 1.96 m[IU]/L Normal 0.358-3.74 [facility] Work Phone: [phone] Office Visiton 01-31-[address] [facility] never smoker Invalid Interpretation Code [facility] Work Phone: [phone] Replaced Document: [employer] E CG Observationson 11-25-2012 Pulse (Heart Rate) 395 ms Invalid Interpretation Code [facility] Work Phone: [phone] QT interval/QT interval (corrected for heart rate), electrocardiogram 395 ms Invalid Interpretation Code [facility] Work Phone: [phone] Vital Signs Date Time Vital Sign Value Performing Clinician Facility 01-01-2023 [id number] Body height 185.[address] Lenny Ramos Work Phone: [facility] 01-01-2023 14:11-0500 Body mass index (BMI) [Ratio] 37.5 kg/m2 Dr. Lenny Ramos Work Phone: [facility] 01-01-2023 14:11-0500 Body temperature 97.2 [degF] Dr. Lenny Ramos Work Phone: [facility] 01-01-2023 14:11-0500 Body weight 129.[address] Lenny Ramos Work Phone: [facility] 01-01-2023 14:11-0500 Diastolic blood pressure 70 mm[Hg] Dr. Lenny Ramos Work Phone: [facility] 01-01-2023 14:11-0500 Heart rate 83 /min Dr. Lenny Ramos Work Phone: [facility] 01-01-2023 14:11-0500 Respiratory rate 16 /min Dr. Lenny Ramos Work Phone: [facility] 01-01-2023 14:11-0500 SaO2% (BldA) [Mass fraction] 97 % Dr. Lenny Ramos Work Phone: [facility] 01-01-2023 14:11-0500 Systolic blood pressure 140 mm[Hg] Dr. Lenny Ramos Work Phone: [facility] 09-21-2022 11:55-0400 Body height 185.[address] Lenny Ramos Work Phone: [facility] Work Phone: 09-21-2022 11:55-0400 Body mass index (BMI) [Ratio] 39.4 kg/m2 Dr. Lenny Ramos Work Phone: [facility] 09-21-2022 11:55-0400 Body temperature 98.8 [degF] Dr. Lenny Ramos Work Phone: [facility] 09-21-2022 11:55-0400 Body weight 135.[address] Lenny Ramos Work Phone: [facility] 09-21-2022 11:55-0400 Diastolic blood pressure 72 mm[Hg] Dr. Lenny Ramos Work Phone: [facility] 09-21-2022 11:55-0400 Heart rate 75 /min Dr. Lenny Ramos Work Phone: [facility] 09-21-2022 11:55-0400 Respiratory rate 14 /min Dr. Lenny Ramos Work Phone: [facility] 09-21-2022 11:55-0400 SaO2% (BldA) [Mass fraction] 100 % Dr. Lenny Ramos Work Phone: [facility] 09-21-2022 11:55-0400 Systolic blood pressure 132 mm[Hg] Dr. Lenny Ramos Work Phone: [facility] 07-24-2022 11:44-0400 Body height 185.[address] Lenny Ramos Work Phone: [facility] Work Phone: 07-24-2022 11:44-0400 Body mass index (BMI) [Ratio] 41.9 kg/m2 Dr. Lenny Ramos Work Phone: [facility] Work Phone: 07-24-2022 11:44-0400 Body weight 144.[address] Lenny Ramso Work Phone: [facility] Work Phone: 07-24-2022 11:44-0400 Diastolic blood pressure 68 mm[Hg] Dr. Lenny Ramos Work Phone: [facility] Work Phone: 07-24-2022 11:44-0400 Systolic blood pressure 130 mm[Hg] Dr. Lenny Ramos Work Phone: [facility] Work Phone: 05-01-2022 16:08-0400 Body temperature 98.1 [degF] Dr. Lenny Ramos Work Phone: [facility] Work Phone: 05-01-2022 16:08-0400 Diastolic blood pressure 74 mm[Hg] Dr. Lenny Ramos Work Phone: [facility] Work Phone: 05-01-2022 16:08-0400 Heart rate 78 /min Dr. Lenny Ramos Work Phone: [facility] Work Phone: 05-01-2022 16:08-0400 Respiratory rate 14 /min Dr. Lenny Ramos Work Phone: [facility] Work Phone: 05-01-2022 16:08-0400 SaO2% (BldA) [Mass fraction] 100 % Dr. Lenny Ramos Work Phone: [facility] Work Phone: 05-01-2022 16:08-0400 Systolic blood pressure 126 mm[Hg] Dr. Lenny Ramos Work Phone: [facility] Work Phone: 09-27-2017 14:13-0400 BMI (Body Mass Index) 41.53 kg/m2 [facility] Work Phone: 09-27-2017 14:13-0400 Body weight 145.15 kg Hao Barcenas MD [facility] Work Phone: 09-27-2017 14:13-0400 Pulse (Heart Rate) 82 /min [facility] Work Phone: 09-27-2017 14:13-0400 Respiratory Rate 19 /min [facility] Work Phone: 09-27-2017 14:13-0400 Weight 145.15 kg [facility] Work Phone: 01-19-2017 15:43-0500 Body mass index (BMI) [Ratio] 40.62 kg/m2 Carrie Fields PA-C Work Phone: [facility] Work Phone: 01-19-2017 15:43-0500 Body surface area Derived from formula 2.62 m2 Carrie Fields PA-C Work Phone: [facility] Work Phone: 01-19-2017 15:43-0500 Body weight 141.98 kg Carrie Fields PA-C Work Phone: [facility] Work Phone: 01-19-2017 15:43-0500 Diastolic blood pressure 70 mm[Hg] Carrie Fields PA-C Work Phone: [facility] Work Phone: 01-19-2017 15:43-0500 Heart rate 72 /min Carrie Fields PA-C Work Phone: [facility] Work Phone: 01-19-2017 15:43-0500 Respiratory rate 20 /min Carrie Fields PA-C Work Phone: [facility] Work Phone: 01-19-2017 15:43-0500 Systolic blood pressure 110 mm[Hg] Carrie Fields PA-C Work Phone: [facility] Work Phone: 01-19-2017 15:43-0500 Weight 141.98 kg Khadijah [facility] Work Phone: 06-02-2016 11:50-0400 Body height 186.94 cm Carrie Fields PA-C Work Phone: [facility] Work Phone: 07-17-2010 08:00-0400 Body temperature 97.9 [degF] Carrie Fields PA-C Work Phone: [facility] Work Phone: Encounters Encounter Date Encounter Type Care Provider Facility Start: 09-11-2025 ambulatory Sarita Abreu [facility] [place]ility:[facility] Start: 08-21-2025 Encounter for genera l adult medical examination without abnormal findings [place] [facility] [place] [facility] Start: 08-08-2025 End: 08-08-2025 ambulatory Sarita BARRERAC Work Phone: -[facility] Start: 08-08-2025 End: 08-08-[address] Savita Arthur MD -[facility] Start: 08-08-2025 End: 08-08-2025 ambulatory Savita Arthur Facility:[facility] Start: 06-12-2025 End: 06-12-2025 ambulatory Sarita Abreu [employer] Work Phone: -Laboratory [facility] Jens Start: 06-12-2025 End: 06-12-2025 Patient encounter procedure [facility] [place] Sarita Abreu [employer] -Laboratory [facility] Jens Start: 06-12-2025 End: 06-12-2025 ambulatory Sarita Brady [facility] [place] Facility:[facility] Start: 04-11-2025 End: 04-11-2025 ambulatory Sarita Abreu [employer] Work Phone: [facility] Work Phone: Start: 04-11-2025 End: 04-11-2025 Patient encounter procedure [facility] [place] Sarita Abreu [employer] -Laboratory Rashida Jens Start: 04-11-2025 End: 04-11-2025 ambulatory Sarita Abreu [facility] [place] Facility:[facility] Start: 01-12-2024 End: 01-12-2024 ambulatory [facility] Work Phone: Start: 01-12-2024 End: 01-12-2024 Patient encounter procedure [facility] [place] Start: 01-01-2023 End: 01-01-[address] Lenny Ramos Work Phone: [facility] Start: 12-28-2022 End: 12-28-[address] Lenny Ramos Work Phone: [facility] Work Phone: Start: 12-28-2022 End: 12-28-[address] Lenny Ramos Work Phone: [facility] [place] Start: 09-21-2022 End: 09-21-[address] Lenny Ramos Work Phone: [facility] Start: 07-24-2022 End: 07-24-[address] Lenny Ramos Work Phone: [facility] Start: 07-24-2022 End: 07-24-[address] Lenny Ramos Work Phone: [facility] Work Phone: Start: 07-24-2022 End: 07-24-[address] Lenny Ramos Work Phone: [facility], [facility] Start: 05-01-2022 End: 05-01-2022 Encounter for general adult medical examination without abnormal findings Dr. Lenny Ramos Work Phone: [facility] Start: 05-01-2022 End: 05-01-[address] Lenny Ramos Work Phone: [facility] Procedures Date Procedure Procedure Detail Performing Clinician Start: 08-08-2025 Hepatitis C antibody measurement Sarita Abreu [employer] Work Phone: Comment on above: Reactive: Presumptiv e evidence of antibodies to HCV. Follow CDC recommendations for supplemental testing.Non-Reactive: Antibodies to HCV were not detected; does not exclude the possibility of exposure to HCVReactive Results are presumptive evidence of antibodies to HCV. Follow CDC recommendations for supplemental testing.Order confirmation testing: HCV Quant by PCR testing - HCVPCR #[id number] Non Reactive: < 0.8 Equivocal: >/= 0.8 to < 1.0 Reactive: >/= 1.0The CDC requires that a reactive/equivocal HCV antibody result be sent out for confirmation. HCV Quant by PCR testing. Start: 08-08-2025 Serologic test for syphilis Sarita Abreu [employer] Work Phone: Start: 04-11-2025 Lyme disease test Sloane Abreu [employer] Work Phone: Start: 04-11-2025 Lyme immunoblot test Ion Abreu [employer] Work Phone: Start: 09-27-2017 End: 09-27-2017 Dietary [...] PA-C Work Phone: Start: 08-07-2013 End: 08-07-2013 BOX STRAPPER Carrie Fields PA-C Work Phone: Start: 08-07-2013 [...] PA-C Work Phone: Start: 08-07-2013 End: 08-07-2013 BOX STRAPPER Carrie Fields PA-C Work Phone: Start: 08-07-2013 [...] Author Start: 04-11-2025 Borrelia burgdorferi blot test [facility] Start: 01-18-2018 End: 01-18-2018 Appointment Appointment [facility] Work Phone: Start: 09-27-2017 End: 09-27-2017 Appointment Appointment [facility] Work Phone: Start: 09-27-2017 End: 09-27-2017 Follow up Appt 2x/week Follow up Appt 2x/week [facility] Work Phone: Start: 09-27-2017 End: 09-27-2017 Follow up Appt 2x/week Follow up Appt 2x/week [facility] Work Phone: Start: 06-16-2017 End: 06-16-2017 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 [facility] Nutrition Services, [address] [place], [address] [facility] Work Phone: Start: 06-16-2017 End: 06-16-2017 Nutrition therapy Track And Field Coach [facility] Nutrition Services, [address] [place], [address] [facility] Work Phone: Start: 01-19-2017 End: 01-19-2017 [facility] Work Phone: Start: 01-19-2017 End: 01-19-2017 Ecg routine ecg w/least 12 lds w/i&r EKG (In office) [facility] Work Phone: Start: 01-19-2017 End: 01-19-2017 Follow Up Appt 1 year Follow Up Appt 1 year [facility] Work Phone: Start: 01-19-2017 End: 01-19-2017 BOX STRAPPER BOX STRAPPER [facility] Work Phone: Start: 01-19-2017 End: 01-19-2017 Ecg routine ecg w/least 12 lds w/i&r EKG (In office) [facility] Work Phone: Start: 01-19-2017 End: 01-19-2017 Follow Up Appt 1 year Follow Up Appt 1 year [facility] Work Phone: Start: 10-20-2016 End: 10-20-2016 BOX STRAPPER BOX STRAPPER [facility] Work Phone: Start: 10-20-2016 End: 10-20-2016 Follow Up Appt 3 months Follow Up Appt 3 months [facility] Work Phone: Start: 10-20-2016 End: 10-20-2016 BOX STRAPPER BOX STRAPPER [facility] Work Phone: Start: 10-20-2016 End: 10-20-2016 Follow Up Appt 3 months Follow Up Appt 3 months [facility] Work Phone: Start: 06-02-2016 End: 01-19-2017 BOX STRAPPER BOX STRAPPER [facility] Work Phone: Start: 06-02-2016 End: 01-19-2017 Follow Up Appt 6 months Follow Up Appt 6 months [facility] Work Phone: Start: 06-02-2016 End: 01-19-2017 BOX STRAPPER BOX STRAPPER [facility] Work Phone: Start: 06-02-2016 End: 01-19-2017 Follow Up Appt 6 months Follow Up Appt 6 months [facility] Work Phone: Start: 07-30-2014 [...] Serum or Plasma *Lipid Profile CC PCP [facility] Work Phone: Start: 02-22-2014 End: 02-22-2014 Follow Up Appt 6 months Follow Up Appt 6 months [facility] Work Phone: Start: 02-22-2014 End: 02-22-2014 MMM MMM [facility] Work Phone: Start: 02-22-2014 End: 02-22-2014 Follow Up Appt 6 months Follow Up Appt 6 months [facility] Work Phone: Start: 02-22-2014 End: 02-22-2014 MMM MMM [facility] Work Phone: Start: 08-07-2013 End: 08-14-2013 *BMP *BMP [facility] Work Phone: Start: 08-07-2013 End: 08-09-2013 *CBC with Differential *CBC with Differential [facility] Work Phone: Start: 08-07-2013 End: 08-09-2013 *Hepatic Function Panel *Hepatic Function Panel [facility] Work Phone: Start: 08-07-2013 End: 08-07-2013 BOX STRAPPER BOX STRAPPER [facility] Work Phone: Start: 08-07-2013 End: 08-07-2013 Follow Up Appt 6 months Follow Up Appt 6 months [facility] Work Phone: Start: 08-07-2013 End: 08-14-2013 Lipid panel [AGGREGATE] *Lipid Profile CC PCP [facility] Work Phone: Start: 08-07-2013 End: 08-14-2013 Thyroid stimulating hormone (TSH) *TSH [facility] Work Phone: Start: 08-07-2013 End: 08-14-2013 Basic metabolic 2000 panel - Serum or Plasma *BMP [facility] Work Phone: Start: 08-07-2013 End: 08-09-2013 CBC W Auto Differential panel - Blood *CBC with Differential [facility] Work Phone: Start: 08-07-2013 End: 08-07-2013 BOX STRAPPER BOX STRAPPER [facility] Work Phone: Start: 08-07-2013 End: 08-07-2013 Follow Up Appt 6 months Follow Up Appt 6 months [facility] Work Phone: Start: 08-07-2013 End: 08-09-2013 Hepatic function 2000 panel - Serum or Plasma *Hepatic Function Panel [facility] Work Phone: Start: 08-07-2013 End: 08-14-2013 Lipid 1996 panel - Serum or Plasma *Lipid Profile CC PCP [facility] Work Phone: Start: 08-07-2013 End: 08-14-2013 Thyrotropin [Units/volume] in Serum or Plasma *TSH [facility] Work Phone: Start: 01-31-2013 End: 01-31-2013 Follow Up Appt 6 months Follow Up Appt 6 months [facility] Work Phone: Start: 01-31-2013 End: 01-31-2013 MMM MMM [facility] Work Phone: Start: 01-31-2013 End: 01-31-2013 Follow Up Appt 6 months Follow Up Appt 6 months [facility] Work Phone: Start: 01-31-2013 End: 01-31-2013 MMM MMM [facility] Work Phone: Start: 11-25-2012 End: 11-30-2012 *BMP *BMP [facility] Work Phone: Start: 11-25-2012 End: 11-25-2012 Ct abdomen w/contrast material CT Abdomen with Contrast [facility] Work Phone: Start: 11-25-2012 End: 11-25-2012 Ct pelvis w/contrast material CT Pelvis with Contrast [facility] Work Phone: Start: 11-25-2012 End: 07-25-2013 Ecg routine ecg w/least 12 lds w/i&r EKG (In office) [facility] Work Phone: Start: 11-25-2012 End: 11-25-2012 Echocardiography Echocardiogram (complete) [facility] Work Phone: Start: 11-25-2012 End: 07-25-2013 Follow Up Appt 3 months Follow Up Appt 3 months [facility] Work Phone: Start: 11-25-2012 End: 11-30-2012 Basic metabolic 2000 panel - Serum or Plasma *BMP [facility] Work Phone: Start: 11-25-2012 End: 11-25-2012 Ct abdomen w/contrast material CT Abdomen with Contrast [facility] Work Phone: Start: 11-25-2012 End: 11-25-2012 Ct pelvis w/contrast material CT Pelvis with Contrast [facility] Work Phone: Start: 11-25-2012 End: 07-25-2013 Ecg routine ecg w/least 12 lds w/i&r EKG (In office) [facility] Work Phone: Start: 11-25-2012 End: 11-25-2012 Echocardiography Echocardiogram (complete) [facility] Work Phone: Start: 11-25-2012 End: 07-25-2013 Follow Up Appt 3 months Follow Up Appt 3 months [facility] Work Phone: Laboratory data interpretation [facility] Polysomnography [facility] Immunizations Immunization Date Immunization Notes Care Provider Fa cility 12-30-2020 Kathia ([employer]) Dr. Lenny Ramos Work Phone: [facility] 12-02-2020 Kathia ([place]) Dr. Lenny Ramos Work Phone: [facility] 11-01-2020 influenza, injectable,quadrivalent , preservative free, pediatric Dr. Lenny Ramos Work Phone: [facility] 08-26-2018 influenza, injectabl e, quadrivalent, preservative free [facility] 08-26-2018 influenza, seasonal, injectable Dr. Lenny Ramos Work Phone: [facility] 12-09-2017 tetanus toxoid, redu samantha diphtheria toxoid, and acellular pertussis vaccine, adsorbed Dr. Lenny Ramos Work Phone: [facility] 08-25-2017 influenza, injectabl e, quadrivalent, preservative free [facility] 08-25-2017 influenza, seasonal, injectable Dr. Lenny Ramos Work Phone: [facility] 08-27-2016 influenza, injectabl e, quadrivalent, preservative free [facility] 08-27-2016 influenza, seasonal, injectable Dr. Lenny Ramos Work Phone: [facility] 06-02-2016 hepatitis A vaccine, adult dosage Dr. Lenny Ramos Work Phone: [facility] 05-18-1996 measles, mumps and rubella virus vaccine Dr. Lenny Ramos Work Phone: [facility] 03-29-1995 hepatitis B vaccine, pediatric or pediatric/adolescent dosage Dr. Lenny Ramos Work Phone: [facility] 07-23-1994 hepatitis B vaccine, pediatric or pediatric/adolescent dosage Dr. Lenny Ramos Work Phone: [facility] 06-05-1994 hepatitis B vaccine, pediatric or pediatric/adolescent dosage Dr. Lenny Ramos Work Phone: [facility] 05-17-1992 measles, mumps and rubella virus vaccine Dr. Lenny Ramos Work Phone: [facility] Payers Date Payer Category Payer Self-pay [id number] 2025 Unknown [id number] Private Health Insurance A00 [id number] Private Health Insurance [id number] Unknown [id number] Unknown [id number] [id number] Unknown [id number] [id number] Unknown [id number] Social History Date Type Detail Facility Start: 07-24-2022 End: 01-01-2023 Tobacco smoking status NHIS Unknown if ever smoked [facility] Start: 02-24-2019 None [facility] Start: 1990 Sex Assigned At Male [facility] Start: 01-01-2023 Tobacco smoking stat us [facility] Ex-smoker (finding) [facility] Sex Male [facility] Evaluation note Note Date & Type Note Facility Evaluation note Diagnosis Onset Date Healthcare maintenance nonea ctive Low back strain noneactive Contact dermatitis due to poison jovany noneactive Essential (primary) hypertension chronic HLD (hyperlipidemia) chronic ANEUDY (obstructive sleep apnea) chronic Encounter for annual health examination noneactive Metabolic syndrome noneactiv e Low HDL (under 40) noneactiv e BMI 40.0-44.9, adult noneact ashley [facility] Work Phone: Evaluation note Note Date & Type Note Facility Evaluation note Diagnosis Onset Date Essential (primary) hypertension chronic HLD (hyperlipidemia) chronic ANEUDY (obstructive sleep apnea) chronic Encounter for annual health examination noneactive Metabolic syndrome noneactiv e Low HDL (under 40) noneactiv e BMI 40.0-44.9, adult noneact ashley Acute maxillary sinusitis no neactive [facility] Work Phone: Evaluation note Note Date & Type Note Facility Evaluation note Diagnosis Onset Date Acute maxillary sinusitis no neactive ANEUDY (obstructive sleep apnea) chronic [facility] Work Phone: Evaluation note Note Date & Type Note Facility Evaluation note No assessment information availa ble [facility] Work Phone: Reason for referral (narrative) Note Date & Type Note Facility Reason for referral (narrative) No reason for referral information available [facility] Work Phone: Summary Purpose Family History No Family History Records Found Relationship Condition Age at Onset Recorded Date/T katharina grandfather Cardiac disease Unknown Advance Directives No Advanced Directives Records Found Advance Directive Response Recorded Date/ Time Living Will Yes April 29, 2022 1 1:37am Power of Radio Equipment Installer Yes April 29, 2022 11:37am Advance Directive Response Recorded Date/ Time Living Will Yes April 29, 2022 1 0:37am Power of Radio Equipment Installer Yes April 29, 2022 10:37am Chief Complaint [...] section and content) DATE CREATED AUTHOR 05/23/2018 [facility] DATE CREATED AUTHOR AUTHOR'S ORGANIZ ATION 09/13/2025 [facility] Goals (unrecognized section and content) Goals [...] Active Member Role Status Dates Sarita SHORE, [employer]PERVIS[employer] Primary Care Provider Activ e Team Status: Inactive Member Role Status Dates Sarita SHORE, SUPERVIS[employer] Primary Care Provider Activ e Start: April 11, 2025 End: April 11, 2025 Sarita CONCEPCIONC, SUPER[employer] Attending Provider Active Start: April 11, 2025 End: April 11, 2025 Team Status: Active Member Role/Relationship Status Dates Sarita SHORE, SUPERVIS[employer] Primary Care Provider Activ e Team Status: Inactive Member Role/Relationship Status Dates Sarita SHORE, SUPERVISOR [employer] Primary Care Provider Activ e Start: April 11, 2025 End: April 11, 2025 Sarita SHORE, SUPER[employer] Attending Provider Active Start: April 11, 2025 End: April 11, 2025 Team Status: Inactive Member Role/Relationship Status Dates Sarita SHORE, SUPERVISOR [employer] Primary Care Provider Activ e Start: June 12, 2025 End: June 12, 2025 Sarita SHORE, SUPER[employer] Attending Provider Active Start: June 12, 2025 End: June 12, 2025 Team Status: Active Member Role/Relationship Status Dates Dr. Savita Arthur MD Primary care physician Active Team Status: Inactive Member Role/Relationship Status Dates Sarita SHORE, SUPERVIS[employer] Primary care physician Acti ve Start: June 12, 2025 End: June 12, 2025 Sarita SHORE, [employer]PER[employer] Attending physician Active Start: June 12, 2025 [...] BE BASED ON THE PRIMARY CLINICAL RECORDS. [employer] provides no warranty or guarantee of the accuracy or completeness of information in this document.
--- NOTE | 2025-09-13 14:27 | RAD_ITS ---
PROCEDURE: CHEST PA AND LATERAL 09/13/2025 REASON FOR EXAM: CP TECHNIQUE: Procedure Code: RADCXR Modality: DX Procedure: CHEST PA AND LATERAL COMPARISON: None FINDINGS: The lungs are clear. The heart borders mediastinum and pulmonary vascular pattern are normal. The upper abdominal bowel gas pattern is normal. RAD/Chest PA and Lateral IMPRESSION: No evidence of acute cardiopulmonary pathology. Reading Location: [place] [id number]
--- NOTE | 2025-09-13 14:27 | RAD_ITS ---
PROCEDURE: CHEST PA AND LATERAL 09/13/2025 REASON FOR EXAM: CP TECHNIQUE: Procedure Code: RADCXR Modality: DX Procedure: CHEST PA AND LATERAL COMPARISON: None FINDINGS: The lungs are clear. The heart borders mediastinum and pulmonary vascular pattern are normal. The upper abdominal bowel gas pattern is normal. RAD/Chest PA and Lateral IMPRESSION: No evidence of acute cardiopulmonary pathology. Reading Location: [place] [address]
== END | disposition home or self-care (01) ==
PROVIDERS: PCP Nurse Practitioner Family; Referring Provider Nurse Practitioner Family; Visit Provider Nurse Practitioner Family
DX: R07.89 Other chest pain (principal); I10 Essential (primary) hypertension
CPT/HCPCS: 71046; 93306